=== PATIENT | female | born 1970 | race African-American/Black ===

== ENCOUNTER → 2018-08-27 | Outpatient (CLI) | payer BC ==
--- NOTE | 2018-08-27 16:47 | P.HPBAR ---
Bariatric H&P - History & Physicial H&P Date: 08/27/18 History & Physicial: Visit/CC: Patient initial contact: Initial weight: Initial weight in pounds: Height: Initial BMI: Last weight: Current weight: Current weight in pounds: Current BMI: [place] body weight (based on NIH guidelines): Excess body weight loss: The patient is a 48 year-old F who presents for Bariatric Assessment. Patient here today for new patient bariatric evaluation. Patient has been struggling with her weight for many years. She is interested in surgical weight loss. She is most interested in sleeve gastrectomy at this time. She is concerned about the long-term side effects of the gastric bypass. Patient suffers from hypertension, diabetes, hypercholesterolemia, GERD symptoms. Denies dysphagia or history of DVT. No history of tobacco use. No history of abdominal surgeries. 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 Paternal grandmother had DM Mother Additional Family Medical History / Comment(s): at age 57 from brain aneurysm Sister(s) Family Medical History: Diabetes Mellitus Additional Family Medical History / Comment(s): Sisters (x2) dx with DM Surgical - Exam Physical exam: General: Well-developed, well-nourished HEENT: Normocephalic, sclerae nonicteric Abdomen: Nontender, nondistended Extremities: No edema Neuro: Alert and oriented Bariatric Assessment & Plan (1) Morbid obesity Narrative/Plan: Patient with history of chronic obesity. Concerned about her underlying diabetes at this point. She is interested in sleeve gastrectomy. She actually is attending the bariatric seminar this evening. We'll tentatively proceed with sleeve gastrectomy. Will require preoperative upper endoscopy. Patient may require supervised weight loss preoperatively. Status: Acute Bariatric Checklist Checklist: Plan: Checklist: EGD: 1. Hiatal hernia: 2. H. Pylori: HgbA1c: Vitamin D: Smoking: Never smoker Primary care physician referral: Psychiatry clearance: Cardiology clearance: Sleep study: Diet journal: VTE risk score: VTE risk level: Rehab needs at discharge:
[2018-08-27 16:53] VITALS: BP 143/72; PULSE 101; RESP 16; TEMP 98.1; BMI 46.1
== END ==
LOC: BARWHC3 15:48
PROVIDERS: ATTEND Surgery
DX: E66.01 Morbid (severe) obesity due to excess calories (principal); Z68.42 Body mass index [BMI] 45.0-49.9, adult
CPT/HCPCS: 99201

== ENCOUNTER → 2018-09-11 | Outpatient (CLI) | payer BC ==
[2018-09-11 15:28] LABS: Anisocytosis Slight; HCT 37.7 % (34.0-46.0); HGB 10.9 gm/dL (11.4-16.0); Hypochromasia Marked; MCH 19.8 pg (25.0-35.0); MCHC 28.9 g/dL (31.0-37.0); MCV 68.5 fL (80.0-100.0); Mean Platelet Volume 6.1; Microcytosis Marked; Platelet Count 331 k/uL (150-450); RDW 16.3 % (11.5-15.5); WBC 6.7 k/uL (3.8-10.6)
[2018-09-11 18:20] LABS: Vitamin D 25 Hydroxy 43.8 ng/mL (30.0-100.0)
[2018-09-11 18:44] LABS: Albumin 4.4 g/dL (3.80-4.90); Albumin/Globulin Ratio 1.91 (1.20-2.10); Anion Gap 8.4 mmol/L (4.00-12.00); Calcium 9.7 mg/dL (8.7-10.3); Carbon Dioxide 27.6 mmol/L (21.6-31.8); Globulin 2.3 g/dL (1.6-3.3); Potassium 4.4 mmol/L (3.5-5.5); Total Bilirubin 0.6 mg/dL (0.2-1.2); Total Protein 6.7 g/dL (6.2-8.2)
[2018-09-12 00:17] LABS: Hemoglobin A1C 6.8 % (4.0-6.0)
== END ==
LOC: LABWHC1 13:27
PROVIDERS: ATTEND Surgery
DX: E66.01 Morbid (severe) obesity due to excess calories (principal); D50.8 Other iron deficiency anemias; E55.9 Vitamin D deficiency, unspecified; E11.9 Type 2 diabetes mellitus without complications
CPT/HCPCS: 36415; 80053; 82306; 82607; 83036; 83540; 84425; 85027; 93005

== ENCOUNTER → 2018-09-16 | Outpatient (CLI) | payer BC | END | disposition home or self-care (01) | LOC: LABWHC1 12:29 | PROVIDERS: ATTEND Surgery | DX: E66.01 Morbid (severe) obesity due to excess calories (principal); E55.9 Vitamin D deficiency, unspecified; E11.9 Type 2 diabetes mellitus without complications | CPT/HCPCS: 36415; 84425 ==

== ENCOUNTER 2018-12-04 13:32 | Emergency (ER) | payer BC ==
[2018-12-04] MEDS ORDERED: PROPARACAINE 0.5% OPHTH DROPS 15 ML BTL BOTH EYES STA (14:00)
[2018-12-04] MEDS ORDERED: TOBRAMYCIN 0.3% OPHTH DROPS 5 ML BTL RIGHT EYE STA (15:06)
--- NOTE | 2018-12-04 15:11 | ED ---
Eye Problem HPI - General Chief complaint: Eye Problems Stated complaint: eye sensitivity Time Seen by Provider: 12/04/18 13:59 Source: patient, RN/, RN notes reviewed Mode of arrival: ambulatory Limitations: no limitations - History of Present Illness Initial comments: Patient is a 48-year-old female presents emergency Department today with complaints of right eye pain. She reports she wears contacts. She states she's been having symptoms for the past day and half. Patient states that she did have pain with my will she was at work. She removed her contacts. She states that she's been having blurry vision from her right eye. She denies any significant drainage. Patient reports that since the pain started she has not re-warn her contacts. - Related Data Home Medications Medication Instructions Recorded Confirmed Acetaminophen-Codeine 300-30mg 1 tab PO Q6H PRN 08/21/18 12/04/18 [Tylenol w/codeine #3] Cetirizine HCl [Zyrtec] 10 mg PO DAILY 08/21/18 12/04/18 Cholecalciferol [Vitamin D3] 5,000 unit PO DAILY 08/21/18 12/04/18 Furosemide [Lasix] 20 mg PO DAILY 08/21/18 12/04/18 Pioglitazone [Actos] 15 mg PO DAILY 08/21/18 12/04/18 Potassium Chloride [Klor-Con 10] 10 meq PO DAILY 08/21/18 12/04/18 Simvastatin [Zocor] 20 mg PO HS 08/21/18 12/04/18 amLODIPine [Norvasc] 10 mg PO DAILY 08/21/18 12/04/18 glipiZIDE [Glucotrol] 10 mg PO AC-BID 08/21/18 12/04/18 metFORMIN HCL 500 mg PO DAILY 08/21/18 12/04/18 Cyanocobalamin (Vitamin B-12) 1,000 mcg PO DAILY 12/04/18 12/04/18 [Vitamin B-12] Previous Rx's Medication Instructions Recorded Tobramycin 0.3% Ophth Soln [Tobrex 1 drop RIGHT EYE Q4H #1 bottle 12/04/18 0.3% Ophth Soln] Allergies Allergy/AdvReac Type Severity Reaction Status Date / Time MARY Inhibitors Allergy Swelling Verified 12/04/18 14:27 adhesive tape Allergy Rash/Hives Verified 12/04/18 14:27 tramadol AdvReac Vomiting Verified 12/04/18 14:27 Review of Systems ROS Statement: Those systems with pertinent positive or pertinent negative responses have been documented in the HPI. ROS Other: All systems not noted in ROS Statement are negative. 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, bilateral arm surgery to remove boils, D&C, Past Anesthesia/Blood Transfusion Reactions: No Reported Reaction Additional Past Anesthesia/Blood Transfusion Reaction / Comment(s): No blood transfusion to date Past Psychological History: No Psychological Hx Reported Smoking Status: Never smoker Past Alcohol Use History: None Reported Past Drug Use History: None Reported - Past Family History Mother Additional Family Medical History / Comment(s): at age 57 from brain aneurysm Father Family Medical History: Cancer Additional Family Medical History / Comment(s): at age 70 from prostate cancer Sister(s) Family Medical History: Diabetes Mellitus Additional Family Medical History / Comment(s): Sisters (x2) dx with DM General Exam - General Exam Comments Initial Comments: 40-year-old female. Alert and oriented. No distress. Limitations: no limitations General appearance: alert, in no apparent distress Head exam: Present: atraumatic, normocephalic, normal inspection Eye exam: Present: PERRL, EOMI, other (Patient has a large corneal abrasion over the center of the right eye with conjunctival injection noted. Cranial abrasion measures 8 mm x 6 mm. Over the area where contact us. No drainage from the eye noted.). Absent: normal appearance, scleral icterus, conjunctival injection, periorbital swelling ENT exam: Present: normal exam, mucous membranes moist Neck exam: Present: normal inspection. Absent: tenderness, meningismus, lymphadenopathy Respiratory exam: Present: normal lung sounds bilaterally. Absent: respiratory distress, wheezes, rales, rhonchi, stridor Cardiovascular Exam: Present: regular rate, normal rhythm, normal heart sounds. Absent: systolic murmur, diastolic murmur, rubs, gallop, clicks Course Vital Signs 12/04/18 12/04/18 13:39 15:29 Temperature 98.6 F 97.8 F Pulse Rate 97 90 Respiratory 20 18 Rate Blood Pressure 140/86 126/78 O2 Sat by Pulse 100 98 Oximetry Medical Decision Making - Medical Decision Making 30-year-old female presents range from today with right eye pain after. Cotacts have been out the past 2 days. She reports does not wear contacts is concerned. On exam she has a significant corneal abrasion over the right eye. Some conjunctival injection is noted. Visual acuity is intact. Able to see lights and movements. Patient does notice prescribed tobramycin. He gave the Patient referral for ophthalmology and discussed that she had prompt follow-up. Discussed if there is any worsening signs or symptoms she should return for reevaluation. Disposition Clinical Impression: Corneal abrasion due to contact lens Disposition: HOME SELF-CARE Condition: Good Instructions (If sedation given, give patient instructions): Corneal Abrasion (ED) Additional Instructions: Patient advised to follow-up with ophthalmology tomorrow. Apply the eyedrops every 4 hours. Patient should return to the emergency department if any alarming signs or symptoms occur. Prescriptions: Tobramycin 0.3% Ophth Soln [Tobrex 0.3% Ophth Soln] 1 drop RIGHT EYE Q4H #1 bottle Is patient prescribed a controlled substance at d/c from ED?: No Referrals: Kathy Carmona MD [Primary Care Provider] - 1-2 days Azalia Leon MD [STAFF PHYSICIAN] - 1-2 days Time of Disposition: 15:08
[2018-12-04 15:31] VITALS: BP 126/78; PULSE 90; RESP 18; TEMP 97.8
== END 2018-12-04 15:31 | disposition home or self-care (01) ==
LOC: EC 13:32
DX: H18.821 Corneal disorder due to contact lens, right eye (principal); E11.9 Type 2 diabetes mellitus without complications; E78.5 Hyperlipidemia, unspecified; I10 Essential (primary) hypertension; Z98.890 Other specified postprocedural states; Z79.84 Long term (current) use of oral hypoglycemic drugs; Z79.899 Other long term (current) drug therapy; Z88.8 Allergy status to other drugs, medicaments and biological substances; Z91.048 Other nonmedicinal substance allergy status; Z88.5 Allergy status to narcotic agent
CPT/HCPCS: 99283

== ENCOUNTER 2019-01-03 11:18 | Emergency (ER) | payer BC, OTHER ==
[2019-01-03 11:22] VITALS: TEMP 98.3
[2019-01-03] MEDS ORDERED: ACET/COD 300 MG/30 MG STARTER PACK 6 TAB BTL PO STA (11:39)
[2019-01-03] MEDS ORDERED: Acetaminophen-Codeine 300-30mg TAB PO STA (11:39)
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
[2019-01-03 13:07] VITALS: BP 136/89; PULSE 75; RESP 18
== END 2019-01-03 13:00 | disposition home or self-care (01) ==
LOC: EC 11:18
DX: T23.272A Burn of second degree of left wrist, initial encounter (principal); T31.0 Burns involving less than 10% of body surface; E11.9 Type 2 diabetes mellitus without complications; E78.5 Hyperlipidemia, unspecified; I10 Essential (primary) hypertension; Z79.84 Long term (current) use of oral hypoglycemic drugs; Z79.899 Other long term (current) drug therapy; Z88.8 Allergy status to other drugs, medicaments and biological substances; Z91.048 Other nonmedicinal substance allergy status; Z88.5 Allergy status to narcotic agent; X19.XXXA Contact with other heat and hot substances, initial encounter; Y92.69 Other specified industrial and construction area as the place of occurrence of the external cause; Y99.0 Civilian activity done for income or pay
CPT/HCPCS: 99283

== ENCOUNTER → 2019-01-18 | Outpatient (CLI) | payer BC ==
--- NOTE | 2019-01-18 14:09 | XR ---
EXAMINATION TYPE: XR knee complete LT DATE OF EXAM: 01/18/2019 CLINICAL HISTORY: Proximal pain. TECHNIQUE: Three views of the left knee are obtained. COMPARISON: None. FINDINGS: There is no acute fracture/dislocation evident in left knee. Asymmetric mild to moderate n arrowing medial tibiofemoral compartment is present. No significant spurring is seen. The overlying s oft tissue appears unremarkable. IMPRESSION: As above.
== END | disposition home or self-care (01) ==
LOC: RADXRMAIN 11:34
PROVIDERS: ATTEND Internal Medicine
DX: M25.862 Other specified joint disorders, left knee (principal); M25.562 Pain in left knee

== ENCOUNTER → 2019-03-31 | Outpatient (CLI) | payer BC ==
[2019-03-31 09:37] VITALS: BMI 46.4
== END ==
LOC: BARWHC3 09:02
PROVIDERS: ATTEND Surgery
DX: E66.01 Morbid (severe) obesity due to excess calories (principal); Z68.42 Body mass index [BMI] 45.0-49.9, adult
CPT/HCPCS: 97804

== ENCOUNTER 2019-04-02 07:17 | Day surgery (SDC) | payer BC ==
[2019-03-28 12:30] VITALS: BMI 45.1
[~2019-04-02 07:17] MED LIST: LACTATED RINGERS 1,000 ML IV SCH
[2019-04-02 07:37] VITALS: RESP 18
[2019-04-02 07:38] VITALS: TEMP 97.1
[2019-04-02 07:43] LABS: Glucose,Whole Blood 125 mg/dL (75-99)
[2019-04-02] MEDS ORDERED: LACTATED RINGERS 1,000 ML IV ONE ×3 (07:48)
[2019-04-02] MEDS ORDERED: MIDAZOLAM 2 MG/2 ML VIAL ONE (08:30)
[2019-04-02] MEDS ORDERED: PROPOFOL 10 MG/ML 20 ML VIAL IV ONE (08:30)
--- NOTE | 2019-04-02 08:30 | P.GSHP ---
History of Present Illness H&P Date: 04/02/19 Chief Complaint: GERD 48-year-old female known to our service. We'll see in the bariatric center earlier this year. Patient interested in sleeve gastrectomy. Complains of mild reflux. Recently completed her supervised weight loss programs. 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 Occ boils in [place] axilla's, last 1 wk ago - on po Bactrim. 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, bilateral arm surgery to remove boils, D&C Past Anesthesia/Blood Transfusion Reactions: No Reported Reaction, Motion Sickness Additional Past Anesthesia/Blood Transfusion Reaction / Comment(s): No blood transfusion to date Smoking Status: Never smoker - Past Family History Mother Additional Family Medical History / Comment(s): at age 57 from brain aneurysm Father Family Medical History: Cancer Additional Family Medical History / Comment(s): at age 70 from prostate cancer Sister(s) Family Medical History: Diabetes Mellitus Additional Family Medical History / Comment(s): Sisters (x2) dx with DM Medications and Allergies Home Medications Medication Instructions Recorded Confirmed Type Cetirizine HCl [Zyrtec] 10 mg PO DAILY 08/21/18 03/28/19 History Cholecalciferol [Vitamin D3] 5,000 unit PO DAILY 08/21/18 03/28/19 History Furosemide [Lasix] 20 mg PO DAILY 08/21/18 03/28/19 History Pioglitazone [Actos] 15 mg PO DAILY 08/21/18 03/28/19 History Potassium Chloride [Klor-Con 10] 10 meq PO DAILY 08/21/18 03/28/19 History Simvastatin [Zocor] 20 mg PO HS 08/21/18 03/28/19 History amLODIPine [Norvasc] 10 mg PO DAILY 08/21/18 03/28/19 History glipiZIDE [Glucotrol] 10 mg PO AC-BID 08/21/18 03/28/19 History metFORMIN HCL 500 mg PO DAILY 08/21/18 03/28/19 History Cyanocobalamin (Vitamin B-12) 1,000 mcg PO DAILY 12/04/18 03/28/19 History [Vitamin B-12] Acetaminophen-Codeine 300-30mg 1 tab PO Q4-6H PRN 03/28/19 03/28/19 History [Tylenol w/codeine #3] Diclofenac Sodium [Voltaren] 75 mg PO BID 03/28/19 03/28/19 History Ibuprofen [Motrin] 600 mg PO Q8HR PRN 03/28/19 03/28/19 History Levonorgestrel [Mirena] 1 each IY DIRECTED 03/28/19 03/28/19 History Vitamin B1 (Unknown Dose) 1 tab PO DAILY 03/28/19 History Allergies Allergy/AdvReac Type Severity Reaction Status Date / Time MARY Inhibitors Allergy Swelling Verified 03/28/19 12:02 adhesive tape Allergy Rash/Hives Verified 03/28/19 12:02 tramadol AdvReac Vomiting Verified 03/28/19 12:02 Surgical - Exam Vital Signs Pulse Resp BP Pulse Ox 68 18 114/68 97 04/02/19 07:35 04/02/19 07:35 04/02/19 07:35 04/02/19 07:35 Physical exam: General: Well-developed, well-nourished HEENT: Normocephalic, sclerae nonicteric Abdomen: Nontender, nondistended Extremities: No edema Neuro: Alert and oriented Results - Labs Abnormal Lab Results - Last 24 Hours (Table) 04/02/19 Range/Units 07:42 POC Glucose (mg/dL) 125 H (75-99) mg/dL Assessment and Plan (1) GERD (gastroesophageal reflux disease) Narrative/Plan: Will proceed with upper endoscopy at this time. Current Visit: Yes Status: Acute Code(s): K21.9 - GASTRO-ESOPHAGEAL REFLUX DISEASE WITHOUT ESOPHAGITIS SNOMED Code(s): 068898271
--- NOTE | 2019-04-02 08:42 | P.PCN ---
Date of Procedure: 04/02/19 Procedure(s) Performed: Preoperative Dx: GERD, presurgical Postoperative Dx: Gastritis with small gastric ulcer Procedure: EGD with Bx Anesthesia: Sedation Endoscopist: Dr. Patton Specimens: Surgical Endoscopic Procedure: The patient was on the endoscopy table in the left decubitus position. The Olympus gastroscope was inserted into the oropharynx and passed under direct visualization to the region of the third portion of the duodenum. From that point the scope was slowly withdrawn inspecting all fady faces carefully. There were no neoplastic inflammatory or polypoid lesions throughout the duodenum. The pylorus was widely patent. The stomach was carefully inspected. There was gastritis present with a very small ulcer seen along the posterior antrum. A biopsy of this area took place. Retroflexion revealed a normal hiatus. The esophagus was then carefully examined. There were no neoplastic inflammatory or polypoid lesions throughout the visualized esophagus. The patient was then taken to the recovery room in stable condition per anesthesia guidelines. Recommendations: Begin antiacid therapy. Await biopsy results. Follow-up bariatric clinic.
[2019-04-02 09:02] VITALS: BP 109/74; PULSE 75
== END 2019-04-02 09:24 | disposition home or self-care (01) ==
LOC: ORWHC2ENDO 07:17
PROVIDERS: ATTEND Surgery
DX: K29.50 Unspecified chronic gastritis without bleeding (principal); K25.9 Gastric ulcer, unspecified as acute or chronic, without hemorrhage or perforation; K21.9 Gastro-esophageal reflux disease without esophagitis; E11.9 Type 2 diabetes mellitus without complications; E78.5 Hyperlipidemia, unspecified; I10 Essential (primary) hypertension; Z79.84 Long term (current) use of oral hypoglycemic drugs; Z83.3 Family history of diabetes mellitus; Z88.8 Allergy status to other drugs, medicaments and biological substances; B96.81 Helicobacter pylori [H. pylori] as the cause of diseases classified elsewhere; Z80.42 Family history of malignant neoplasm of prostate; Z79.899 Other long term (current) drug therapy
CPT/HCPCS: 81025; 43239; J2250; J2704; 88305; 88342

== ENCOUNTER → 2019-05-08 | Outpatient (CLI) | payer BC ==
[2019-05-08 13:56] VITALS: BP 120/80; PULSE 89; RESP 16; TEMP 97.9; BMI 45.8
--- NOTE | 2019-05-08 15:46 | P.BASOAP ---
Subjective Progress Note Date: 05/08/19 Principal diagnosis: Morbid obesity Patient returns for reevaluation. Underwent recent upper endoscopy. EGD showed small ulcer. Biopsy confirmed the presence of H. pylori. Patient completed her antibiotic regimen. Remains on antiacids. Recently started another antibiotic for a urinary tract infection. Remains on vitamin B1 and vitamin D supplementation. Here today for urea breath test. Denies abdominal pain. No melena. Objective - Vital Signs Vital signs: Vital Signs Temp 97.9 F 05/08/19 13:52 Pulse 89 05/08/19 13:52 Resp 16 05/08/19 13:52 BP 120/80 05/08/19 13:52 Pulse Ox Intake & Output 05/07/19 05/08/19 05/08/19 18:59 06:59 18:59 Weight 128.82 kg - Exam Abdomen: Soft, nontender, nondistended Assessment/Plan (1) Morbid obesity Narrative/Plan: Will check urea breath test at this time. Once that test is back as long as H. pylori is negative Will schedule for upcoming sleeve gastrectomy. The sleeve surgical consent form was reviewed in detail with the patient's. All associated risks were reviewed in detail. She understands and wishes to proceed. Plan: Date: 05/08/19 Initial Weight: 129.727 kg Initial BMI: 46.1 Current Weight: 128.82 kg Current BMI: 45.8 Type of Surgery: Total Volume in Band: Previous Volume: Volume Removed: Volume Added: Band Size:
== END | disposition home or self-care (01) ==
LOC: BARWHC3 13:42
PROVIDERS: ATTEND Surgery
DX: E66.01 Morbid (severe) obesity due to excess calories (principal); Z68.42 Body mass index [BMI] 45.0-49.9, adult; N39.0 Urinary tract infection, site not specified; Z79.899 Other long term (current) drug therapy
CPT/HCPCS: 83013; 99211

== ENCOUNTER → 2019-05-20 | Outpatient (CLI) | payer BC ==
[~2019-05-20] MED LIST changes: -LACTATED RINGERS 1,000 ML IV SCH; +REGADENOSON 0.4 MG/5 ML SYRINGE IV ONE
--- NOTE | 2019-05-20 11:33 | NM ---
EXAMINATION TYPE: NM stress lexiscan cardiolite DATE OF EXAM: 05/20/2019 COMPARISON: NONE HISTORY: Abnormal EKG TECHNIQUE: After the intravenous administration of 10.4 mCi Tc 99m Sestamibi - Cardiolite resting SP ECT images acquired 45 minutes post injection. The patient received 0.4mg Lexiscan, 26.8 mCi Tc 99m Sestamibi - Stress images obtained [address] injection FINDINGS: Exam limited due to artifact Review of stress and rest SPECT images demonstrates Limited exam with suspicion for a stress-induced area of reversibility involving the apex myocardium.. Gated analysis shows normal wall motion with a n estimated left ventricular ejection fraction of 58 %. Report telephoned to the patient's referring clinician. IMPRESSION: 1. Limited exam demonstrates findings suspicious for an area of stress-induced reversible ischemia in volving the apex of the myocardium.
--- NOTE | 2019-05-21 16:08 | EST ---
EXERCISE STRESS DATE OF TEST: 05/20/2019 AGE: @48 SEX: Female HT: 5'6" WT: 286 lbs PROTOCOL: Lexiscan Cardiolite STAGE: DURATION OF EXERCISE: HEART RATE REST: 68 BLOOD PRESSURE REST: 120/89 MAXIMUM HEART RATE ACHIEVED: 68 MAXIMUM BLOOD PRESSURE: 126/75 85% MPHR: 100% MPHR: METS: INDICATIONS: Abnormal EKG CLINICAL INFORMATION: A Lexiscan nuclear study was performed. Peak heart rate of 85 was achieved. Maximum blood pressure of 124/75 mmHg was noted. Resting EKG shows normal sinus rhythm with normal ID interval and QRS duration and normal ST-T waves. No ST-segment depression suggestive of ischemia is noted. The results of the nuclear study will follow. MMODL / IJN: [id number] /
== END | disposition home or self-care (01) ==
LOC: RADNMMAIN 08:23
PROVIDERS: ATTEND Internal Medicine
DX: R94.31 Abnormal electrocardiogram [ECG] [EKG] (principal)
CPT/HCPCS: 93017; 78452; A9500; J2785

== ENCOUNTER → 2019-06-12 | Outpatient (CLI) | payer BC ==
[2019-06-12 17:37] LABS: HCT 32.8 % (34.0-46.0); HGB 9.9 gm/dL (11.4-16.0); Hypochromasia Marked; MCHC 30.3 g/dL (31.0-37.0); MCV 69.3 fL (80.0-100.0); Microcytosis Marked; Platelet Count 299 k/uL (150-450); RBC 4.73 m/uL (3.80-5.40); WBC 9.3 k/uL (3.8-10.6)
[2019-06-12 17:44] LABS: Chloride 105 mmol/L (98-107)
[2019-06-12 17:47] LABS: African American GFR (CKD) >90 (>60 ml/min/1.73 sqM); Anion Gap 9 mmol/L; Blood Urea Nitrogen 14 mg/dL (7-17); Carbon Dioxide 26 mmol/L (22-30); Potassium 4.1 mmol/L (3.5-5.1); Sodium 140 mmol/L (137-145)
== END | disposition home or self-care (01) ==
LOC: LABPAT 17:15
PROVIDERS: ATTEND Internal Medicine Cardiovascular Disease
DX: Z01.812 Encounter for preprocedural laboratory examination (principal); R93.1 Abnormal findings on diagnostic imaging of heart and coronary circulation
CPT/HCPCS: 36415; 80051; 82565; 84520; 85027

== ENCOUNTER → 2019-06-25 | Day surgery (SDC) | payer BC ==
[2019-06-20 10:03] VITALS: BMI 45.6
[~2019-06-25] MED LIST changes: +ALPRAZolam 0.25 MG TAB PO PRN; +ALPRAZolam 0.5 MG TAB PO PRN; +ASPIRIN 325 MG TAB PO STA; +ATORVASTATIN 80 MG TAB PO STA; +IOPAMIDOL-370 125ML BTL INJ ONE; +LIDOCAINE 1% INJ 10MG/ML (20 ML MDV) ONE; +LIDOCAINE 1% INJ 10MG/ML (20 ML MDV) SQ ONE; +MIDAZOLAM 2 MG/2 ML VIAL IVP ONE; +NITROGLYCERIN SL TABS 0.4 MG TAB SUBLINGUAL PRN; -REGADENOSON 0.4 MG/5 ML SYRINGE IV ONE; +SODIUM CHLORIDE 0.9% 1,000 ML in EMPTY BAG 1 BAG IV ONE; +fentaNYL (PF) 50 MCG/ML 2 ML AMP IVP ONE; +fentaNYL (PF) 50 MCG/ML 2 ML AMP ONE
[2019-06-25 08:17] VITALS: TEMP 97.7
[2019-06-25 08:23] LABS: Glucose,Whole Blood 110 mg/dL (75-99)
--- NOTE | 2019-06-25 09:53 | CC ---
CARDIAC CATHETERIZATION REPORT INDICATION: Chest pain with abnormal stress test. PROCEDURE NOTE: After obtaining informed consent, left heart catheterization and coronary angiogram are performed via the right femoral artery using standard Heath catheters. The patient tolerated the procedure well without any obvious immediate complications. A femoral angiogram was performed and Angio-Seal was deployed for hemostasis. Patient received moderate conscious sedation. Total sedation time was 20 minutes. FINDINGS: 1. HEMODYNAMICS: Left ventricular end-diastolic pressure is 12-14 mm. There is no significant gradient across the aortic valve. 2. LEFT VENTRICULOGRAM: Left ventriculogram is not performed. 3. ANGIOGRAPHIC DATA: Left Main Coronary Artery: Left main coronary artery is a normal-sized vessel and is free of stenosis. Divides into left anterior descending coronary artery and circumflex coronary artery. LAD and its branches, circumflex coronary artery and its branches are free of significant stenosis. CONCLUSIONS: 1. Normal coronary arteries. 2. Normal left ventricular end-diastolic pressure. PLAN: I reviewed angiographic data with the patient and told her that her stress test is a false positive stress test and management is going to be in the form of risk factor modification. MMODL / IJN: [id number] /
--- NOTE | 2019-06-25 09:59 | LTR ---
June 25, 2019 Re: Domenica Torres Dear Dr. Carmona: I performed cardiac catheterization on Domenica Torres. A detailed catheterization note is enclosed for your records. In brief, the cardiac catheterization revealed normal coronary arteries. I believe stress test is a false positive stress test and her management is going to be in the form of risk factor modification. Thank you for giving me the privilege to participate in the care of this pleasant lady. Sincerely, MD NINOSKA Dyer / YOBANY: [id number] /
[2019-06-25 12:13] VITALS: BP 136/84; PULSE 70; RESP 18
== END | disposition home or self-care (01) ==
LOC: CATHCVL 07:55
PROVIDERS: ATTEND Internal Medicine Cardiovascular Disease
DX: R94.39 Abnormal result of other cardiovascular function study (principal); R07.9 Chest pain, unspecified; D50.0 Iron deficiency anemia secondary to blood loss (chronic); I10 Essential (primary) hypertension; E11.9 Type 2 diabetes mellitus without complications; E78.2 Mixed hyperlipidemia; Z79.84 Long term (current) use of oral hypoglycemic drugs; Z79.899 Other long term (current) drug therapy; Z82.49 Family history of ischemic heart disease and other diseases of the circulatory system
CPT/HCPCS: 93458; 81025; C1769 ×2; C1760; C1894; J2250; J2001; J3010; Q9967

== ENCOUNTER → 2019-07-22 | Outpatient (CLI) | payer BC ==
[2019-07-22 14:36] VITALS: BP 133/84; PULSE 90; TEMP 97.7; BMI 46.7
--- NOTE | 2019-07-22 15:14 | P.BASOAP ---
Subjective Progress Note Date: 07/22/19 Principal diagnosis: Morbid obesity Patient returns today to discuss upcoming sleeve gastrectomy. Underwent EGD in March which showed a small ulcer. She was H. pylori positive. She subsequently had a urea breath test that was normal. Patient had an abnormal stress test and then had a cardiac catheterization that was normal. She has been scheduled for wisdom tooth removal next week. She is on antibiotics for a small boil right axilla. Sleeve gastrectomy scheduled . Objective - Vital Signs Vital signs: Vital Signs Temp 97.7 F 07/22/19 14:33 Pulse 90 07/22/19 14:33 Resp BP 133/84 07/22/19 14:33 Pulse Ox Intake & Output 07/21/19 07/22/19 07/22/19 18:59 06:59 18:59 Weight 131.542 kg - Exam Abdomen: Soft, nontender, nondistended Assessment/Plan (1) Morbid obesity Narrative/Plan: Finish antibiotics for small wound infection. Maintain plans for upcoming sleeve gastrectomy 08/04. Surgical consent form was reviewed with the patient last visit. Once again reviewed those associated risks. Patient remains interested and wishes to proceed. Plan: Date: 07/22/19 Initial Weight: 129.727 kg Initial BMI: 46.1 Current Weight: 131.542 kg Current BMI: 46.7 Type of Surgery: Total Volume in Band: Previous Volume: Volume Removed: Volume Added: Band Size:
== END | disposition home or self-care (01) ==
LOC: BARWHC3 13:37
PROVIDERS: ATTEND Surgery
DX: E66.01 Morbid (severe) obesity due to excess calories (principal); Z68.42 Body mass index [BMI] 45.0-49.9, adult
CPT/HCPCS: 99211

== ENCOUNTER → 2019-08-01 | Outpatient (CLI) | payer BC ==
[2019-08-01 13:53] LABS: ALT 42 U/L (4-34); AST 35 U/L (14-36); African American GFR (CKD) >90 (>60 ml/min/1.73 sqM); Alkaline Phosphatase 97 U/L (38-126); Anion Gap 12 mmol/L; Blood Urea Nitrogen 15 mg/dL (7-17); Calcium 10.4 mg/dL (8.4-10.2); Carbon Dioxide 26 mmol/L (22-30); Chloride 103 mmol/L (98-107); Glucose 93 mg/dL (74-99); Non-African American GFR(CKD) 79 (>60 ml/min/1.73 sqM); Potassium 4.3 mmol/L (3.5-5.1); Sodium 141 mmol/L (137-145); Total Bilirubin 0.8 mg/dL (0.2-1.3)
[2019-08-01 14:15] LABS: HCT 36.3 % (34.0-46.0); HGB 10.9 gm/dL (11.4-16.0); Hypochromasia Marked; MCH 20.6 pg (25.0-35.0); MCHC 30.1 g/dL (31.0-37.0); MCV 68.5 fL (80.0-100.0); Mean Platelet Volume 7.9; Microcytosis Marked; Platelet Count 312 k/uL (150-450); RDW 15.5 % (11.5-15.5)
[2019-08-01 15:19] LABS: Basophils # (M) 0.06 k/uL (0-0.2); Lymphocytes # (M) 2.58 k/uL (1.0-4.8); Monocytes # (M) 0.48 k/uL (0-1.0); Neutrophils # (M) 2.88 k/uL (1.3-7.7); Neutrophils % (M) 48 %; Nucleated Red Blood Cells 0 /100 WBC (0-0); Total Cells Counted 100
[2019-08-01 15:20] LABS: Large Platelets Present; Target Cells Present
== END | disposition home or self-care (01) ==
LOC: LABPAT 12:32
PROVIDERS: ATTEND Surgery
DX: Z01.818 Encounter for other preprocedural examination (principal)
CPT/HCPCS: 36415; 80053; 85025; 93005

== ENCOUNTER 2019-08-04 09:26 | Inpatient (IN) | payer BC ==
[~2019-08-04 09:26] MED LIST changes: -ALPRAZolam 0.25 MG TAB PO PRN; -ALPRAZolam 0.5 MG TAB PO PRN; -ASPIRIN 325 MG TAB PO STA; -ATORVASTATIN 80 MG TAB PO STA; +DEXAMETHASONE SOD PHOSPHATE 10 MG/ML 1 ML VIAL IV ONE; +ENOXAPARIN 40 MG/0.4 ML SYRINGE SQ ONE; -IOPAMIDOL-370 125ML BTL INJ ONE; +LIDOCAINE 1% 20 ML VIAL (10MG/ML) FOR IV START INTRADERMA PRN; -LIDOCAINE 1% INJ 10MG/ML (20 ML MDV) ONE; -LIDOCAINE 1% INJ 10MG/ML (20 ML MDV) SQ ONE; -MIDAZOLAM 2 MG/2 ML VIAL IVP ONE; -NITROGLYCERIN SL TABS 0.4 MG TAB SUBLINGUAL PRN; +ONDANSETRON 4 MG/2 ML VIAL IVP ONE; +SCOPOLAMINE 1.5MG/72HR PATCH TRANSDERM ONE; -SODIUM CHLORIDE 0.9% 1,000 ML in EMPTY BAG 1 BAG IV ONE; +ceFAZolin 3 GM in SODIUM CHLORIDE 0.9% 100 ML IVPB ONE; -fentaNYL (PF) 50 MCG/ML 2 ML AMP IVP ONE; -fentaNYL (PF) 50 MCG/ML 2 ML AMP ONE
--- NOTE | 2019-08-04 11:21 | P.GSHP ---
History of Present Illness H&P Date: 08/04/19 Chief Complaint: morbid obesity patient here today for elective sleeve gastrectomy. Patient first seen in the bariatric center in August. Patient suffers from hypertension, diabetes, hypercholesterolemia, GERD. Recent EGD showed a small ulcer. She was H. pylori positive. She was treated for H. pylori. Follow-up urea breath test normal. Patient also had recent cardiac catheterization that was normal. Patient being treated for right axillary skin and soft tissue infection with antibiotics. Those symptoms have improved. Denies DVT or dysphagia. BMI 44. Past Medical History Past Medical History: Diabetes Mellitus, GERD/Reflux, Hyperlipidemia, Hypertension, Skin Disorder Additional Past Medical History / Comment(s): "I have low Iron." Seasonal allergies, poor venous circulation, has dependent edema (uses a pneumatic compression device machine at home). Occasional GERD, occasional boils in bilateral axillas. 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 Past Anesthesia/Blood Transfusion Reactions: No Reported Reaction, Motion Sickness Additional Past Anesthesia/Blood Transfusion Reaction / Comment(s): No blood transfusion to date. Smoking Status: Never smoker - Past Family History Mother Additional Family Medical History / Comment(s): at age 57 from brain aneurysm. Father Family Medical History: Cancer Additional Family Medical History / Comment(s): at age 70 from prostate cancer Sister(s) Family Medical History: Diabetes Mellitus Additional Family Medical History / Comment(s): Sisters (X2) with DM. Medications and Allergies Home Medications Medication Instructions Recorded Confirmed Type Cetirizine HCl [Zyrtec] 10 mg PO DAILY 08/21/18 07/31/19 History Cholecalciferol [Vitamin D3] 5,000 unit PO DAILY 08/21/18 07/31/19 History Furosemide [Lasix] 20 mg PO DAILY 08/21/18 07/31/19 History Pioglitazone [Actos] 15 mg PO DAILY 08/21/18 07/31/19 History Potassium Chloride [Klor-Con 10] 10 meq PO DAILY 08/21/18 07/31/19 History Simvastatin [Zocor] 20 mg PO HS 08/21/18 07/31/19 History amLODIPine [Norvasc] 10 mg PO DAILY 08/21/18 07/31/19 History metFORMIN HCL 500 mg PO DAILY 08/21/18 07/31/19 History Acetaminophen-Codeine 300-30mg 1 tab PO Q4-6H PRN 03/28/19 07/31/19 History [Tylenol w/codeine #3] Diclofenac Sodium [Voltaren] 75 mg PO BID PRN 03/28/19 07/31/19 History Ibuprofen [Motrin] 600 mg PO Q8HR PRN 03/28/19 07/31/19 History Levonorgestrel [Mirena] 1 each IY DIRECTED 03/28/19 07/31/19 History Vitamin B1 (Unknown Dose) 1 tab PO DAILY 03/28/19 07/31/19 History Omeprazole [PriLOSEC] 20 mg PO AC-BRKFST #90 cap 04/02/19 07/31/19 Rx Allergies Allergy/AdvReac Type Severity Reaction Status Date / Time MARY Inhibitors Allergy Swelling Verified 07/31/19 17:58 adhesive tape Allergy Rash/Hives Verified 07/31/19 17:58 tramadol AdvReac Vomiting Verified 07/31/19 17:58 Surgical - Exam Physical exam: General: Well-developed, well-nourished HEENT: Normocephalic, sclerae nonicteric Abdomen: Nontender, nondistended Extremities: No edema Neuro: Alert and oriented Assessment and Plan (1) Morbid obesity Narrative/Plan: Will proceed with elective laparoscopic sleeve gastrectomy at this time. The risks of bleeding, infection, stenosis, stricture, leak, abscess, fistula formation, peritonitis, poor weight loss, reflux, vomiting, conversion to an open procedure, aborting sleeve gastrectomy, VT, PE, DVT, and were discussed. The patient understands and wishes to proceed. Current Visit: No Status: Acute Code(s): E66.01 - MORBID (SEVERE) OBESITY DUE TO EXCESS CALORIES SNOMED Code(s): 724974173
[2019-08-04] MEDS: LACTATED RINGERS 1,000 ML IV SCH (11:50)
[2019-08-04] MEDS ORDERED: MIDAZOLAM 2 MG/2 ML VIAL IV ONE (12:05)
[2019-08-04 12:06] LABS: Glucose,Whole Blood 104 mg/dL (75-99)
[2019-08-04] MEDS ORDERED: MIDAZOLAM 2 MG/2 ML VIAL ONE (13:04)
[2019-08-04] MEDS ORDERED: ROCURONIUM BROMIDE 10 MG/ML 10 ML VIAL IV ONE (13:04)
[2019-08-04] MEDS ORDERED: GLYCOPYRROLATE 0.2 MG/ML 2 ML VIAL ONE (13:04)
[2019-08-04] MEDS ORDERED: LIDOCAINE 1% INJ 10MG/ML (20 ML MDV) ONE (13:04)
[2019-08-04] MEDS ORDERED: KETAMINE 10 MG/ML 20 ML VIAL ONE (13:04)
[2019-08-04] MEDS ORDERED: HYDROmorphone (PF) 1 MG/ML ONE (13:04)
[2019-08-04] MEDS ORDERED: fentaNYL (PF) 50 MCG/ML 2 ML AMP ONE (13:04)
[2019-08-04] MEDS ORDERED: PROPOFOL 10 MG/ML 20 ML VIAL IV ONE (13:04)
[2019-08-04] MEDS ORDERED: NEOSTIGMINE 1 MG/ML 10 ML VIAL ONE (13:04)
[2019-08-04] MEDS ORDERED: ePHEDrine SULFATE/0.9% NACL/PF 50 MG/5 ML SYRINGE IV ONE (13:04)
[2019-08-04] MEDS ORDERED: BUPIVACAIN-EPI 0.25%-1:200,000 30 ML VIAL SQ ONE ×2 (13:28)
[2019-08-04] MEDS ORDERED: LACTATED RINGERS 1,000 ML IV ONE (13:51)
[2019-08-04] MEDS ORDERED: NALOXONE 0.4 MG/ML 1 ML VIAL IV PRN (15:02)
[2019-08-04] MEDS ORDERED: diphenhydrAMINE 50 MG/ML 1 ML VIAL IVP PRN (15:02)
--- NOTE | 2019-08-04 15:06 | P.OP ---
Date of Procedure: 08/04/19 Procedure(s) Performed: PREOPERATIVE DIAGNOSIS: Morbid obesity, hypertension, diabetes, hypercholesterolemia, GERD POSTOPERATIVE DIAGNOSIS: Same PROCEDURE: Laparoscopic sleeve gastrectomy SURGEON: Pooja EBL: Minimal ANESTHESIA: General COMPLICATIONS: None OPERATIVE PROCEDURE: Patient was placed in the operating table in the supine position. She was placed under general anesthesia at that time. The abdomen was prepped and draped in sterile fashion after the patient was placed in lithotomy. A 5 mm optical trocar was used to enter the abdominal cavity in the left upper quadrant. Insufflation took place to 15 millimeters mercury. An additional right subxiphoid 5 mm trocar was then placed under direct visualization and then removed. 2 additional 5 mm trochars were placed in the right upper quadrant and left upper quadrant under direct visualization and a 15 mm trocar in the supraumbilical location. The liver was retracted using a medium Kristina liver retractor through the right subxiphoid trocar site. The hiatus was inspected. The patient had no visible hiatal hernia At that point I moved to the mid aspect of the greater curvature the stomach. The short gastric vasculature was divided using a LigaSure device proximally. I then switched and divided the short gastrics distally to a 3-4 cm from the pylorus. The dissection took place up to the left diaphragmatic crura at that point. The posterior short gastrics were likewise divided using the LigaSure device. Once the stomach was fully mobilized the blunt tipped 40-Swedish bougie dilator was advanced into the stomach and advanced all the way to the prepyloric location. A black echelon 60 stapler was utilized and fired tangentially across the antrum taking care to avoid narrowing at the incisura angularis. Subsequent firings of the stapler took place. A second firing of the black load with seam guard took place next. Additional loads of green echelon 60 staplers with seam guard took place proximally staying on the outer edge of our dilator. The oral gastric tube was reinserted. The stomach was insufflated with approximately 100 mL of methylene blue. No evidence of leak or obstruction was seen. The distal aspect of the sleeve was then reapproximated to the gastrosplenic and gastrocolic ligament using a short running 2-0 strata fix suture. This was done to prevent kinking or twisting of the sleeve. The stomach remnant was removed from the 15 mm trocar site without difficulty. The fascia at the 15 more site was closed using interrupted 0 Vicryl sutures with the laparoscopic suture passer and Dontrell Francisco technique. The insufflation was evacuated. The skin at all 5 incisions were closed using 4-0 Monocryl sutures. Skin glue was then applied. DISPOSITION: Stable to recovery room
[2019-08-04 15:20] LABS: Glucose,Whole Blood 196 mg/dL (75-99)
[2019-08-04] MEDS: HYDROmorphone 0.5 MG/0.5 ML SYRINGE IVP PRN ×2 (15:20→15:30)
[2019-08-04] MEDS ORDERED: ONDANSETRON 4 MG/2 ML VIAL IVP ONE (15:25)
[2019-08-04] MEDS ORDERED: METOCLOPRAMIDE 5 MG/ML 2 ML VIAL IVP ONE (15:51)
[2019-08-04] MEDS: ALBUTEROL NEBULIZED 2.5 MG/3 ML INHALATION SCH ×2 (16:00→20:38)
[2019-08-04 17:07] LABS: Glucose,Whole Blood 188 mg/dL (75-99)
[2019-08-04] MEDS: 0.9% NACL WITH KCL 20 MEQ/L 1,000 ML IV SCH (18:00)
[2019-08-04] MEDS: HYDROmorphone 1 MG/ML 1 ML SYRINGE IVP PRN (20:23)
[2019-08-04] MEDS: ONDANSETRON 4 MG/2 ML VIAL IVP PRN (20:23)
[2019-08-04] MEDS: HYOSCYAMINE ORAL DROPS 1.875 MG/15 ML BOTTLE PO PRN (20:24)
[2019-08-04] MEDS: SIMETHICONE 40 MG/0.6 ML DROPS 2,000 MG/30 ML BOTTLE PO PRN (20:24)
[2019-08-04 20:56] LABS: Glucose,Whole Blood 166 mg/dL (75-99)
[2019-08-04] MEDS: INSULIN ASPART (NovoLOG) 100 UNIT/ML VIAL SQ SCH (21:06)
--- NOTE | 2019-08-04 23:24 | CONS ---
CONSULTATION REASON FOR CONSULTATION: Advice regarding diabetes and other medical issues requested by Dr. Patton. HISTORY OF PRESENT ILLNESS: This 48-year-old woman with a past medical history of diabetes, GERD, hypertension, hyperlipidemia, being followed Dr. Kathy Carmona in the outpatient setting was admitted after laparoscopic sleeve gastrectomy by Dr. Patton. Postoperatively, the patient is slightly drowsy. There is no history of chest pain, palpitations, hematochezia or melena at this time. The blood sugar has been found to be 104, 196 and 188. PAST MEDICAL HISTORY: History of diabetes, GERD, hypertension, hyperlipidemia, history of iron deficiency anemia, history of cardiac catheterization. MEDICATIONS: Prior to admission home medications are: 1. Cetirizine. 2. Zyrtec 10 mg p.o. daily. 3. Tylenol #3 one tab q.4h 6 p.r.n. 4. Actos 15 mg p.o. daily. 5. Prilosec 20 mg a.c. breakfast. 6. Lasix 20 mg p.o. daily. 7. Metformin 500 mg p.o. daily. 8. Norvasc 10 mg p.o. daily. 9. Zocor 20 mg q.h.s. 10.Klor-Con 10 mEq p.o. daily. 11.Vitamin B1 p.o. daily. 12.Myrene 1 p.r.n. 13.Motrin 600 mg q.8 p.r.n. 14.Voltaren 75 mg p.o. b.i.d. p.r.n. 15.Vitamin D3 5000 daily. ALLERGIES: MARY INHIBITORS, ADHESIVE TAPES AND ULTRAM. FAMILY HISTORY: Family history of prostate cancer. SOCIAL HISTORY: No history of smoking. No history of alcohol intake. REVIEW OF SYSTEMS: ENT: No diminished vision. No diminished hearing. CARDIOVASCULAR: No angina or palpitations. RESPIRATION: No cough. No hemoptysis. GI as mentioned earlier. no dysuria or hematuria. NERVOUS SYSTEM: No numbness or weakness. ALLERGY/IMMUNOLOGY: No asthma or hayfever. MUSCULOSKELETAL as mentioned earlier. HEMATOLOGY/ONCOLOGY: No history of anemia. ENDOCRINE: Diabetes. CONSTITUTIONAL: As mentioned earlier. DERMATOLOGY: Negative. RHEUMATOLOGY negative. PSYCHIATRY as mentioned. PHYSICAL EXAMINATION: Alert and oriented x3. Pulse 69. Blood pressure 120/63, respirations 16, temperature normal, pulse ox 96% on room air. The patient is slightly drowsy but arousable. HEENT conjunctivae normal. Oral mucosa moist. NECK is no jugular venous distention. No carotid bruit. No lymph node enlargement. Cardiovascular system: S1, S2 muffled. Respirations: Breath sounds diminished in the bases. No rhonchi. No crackles. ABDOMEN: Soft. Status post surgery. LEGS: No edema. No swelling. Nervous system: Higher functions as mentioned earlier. Moves all 4 limbs. No focal motor or sensory deficits. Lymphatics: No lymph nodes palpable in the neck, axillae or groin. SKIN: No ulcer, no rashes. No bleeding. JOINTS: No active deforming arthropathy. LABS: Accu-Cheks 104, 196, 188. The preop labs are hemoglobin 10.9, MCV 68.5. Chemistry: Glucose 188, hemoglobin 6.8, ALT is 42. ASSESSMENT: 1. Status post laparoscopic sleeve gastrectomy. 2. Diabetes mellitus type 2. 3. Gastroesophageal reflux disease. 4. Hypertension. 5. Hyperlipidemia. 6. History of iron deficient anemia. 7. History of dependent edema. 8. History of cardiac catheterization. 9. Obesity with body mass of 43.7. 10.FULL CODE. RECOMMENDATIONS AND DISCUSSION: In this 48-year-old woman who presented after surgery, at this time, I recommend to continue with Norvasc and continue with insulin scale. Monitor blood sugars closely. The patient is currently n.p.o. Once the patient passes the protocol, the rest of the p.o. medications can be initiated. We will follow the patient closely with you and recommend continue with DVT prophylaxis and proton pump inhibitors. We will follow the patient closely with you. Thank you Dr. Patton for letting us participate in the care of this patient. MMODL / IJN: [id number] /
[2019-08-05] MEDS: 0.9% NACL WITH KCL 20 MEQ/L 1,000 ML IV SCH ×2 (00:27→08:11)
[2019-08-05] MEDS: ENOXAPARIN 40 MG/0.4 ML SYRINGE SQ SCH ×2 (00:27→15:24)
[2019-08-05] MEDS: HYDROmorphone 1 MG/ML 1 ML SYRINGE IVP PRN ×2 (01:18→07:57)
[2019-08-05] MEDS: ONDANSETRON 4 MG/2 ML VIAL IVP PRN ×3 (01:23→15:23)
[2019-08-05] MEDS: LACTATED RINGERS 1,000 ML IV SCH (03:34)
[2019-08-05 06:59] LABS: Glucose,Whole Blood 114 mg/dL (75-99)
[2019-08-05 07:15] LABS: Basophils % (A) 0 %; Eosinophils % (A) 0 %; HCT 33.3 % (34.0-46.0); Hypochromasia Marked; Lymphocytes # (A) 1.1 k/uL (1.0-4.8); Lymphocytes % (A) 15 %; MCH 20.9 pg (25.0-35.0); MCHC 29.9 g/dL (31.0-37.0); Mean Platelet Volume 7.5; Microcytosis Moderate; Monocytes # (A) 0.4 k/uL (0-1.0); Monocytes % (A) 5 %; Neutrophils # (A) 5.8 k/uL (1.3-7.7); Neutrophils % (A) 79 %; Platelet Count 311 k/uL (150-450); RBC 4.77 m/uL (3.80-5.40); RDW 15.6 % (11.5-15.5); WBC 7.4 k/uL (3.8-10.6)
[2019-08-05 07:22] LABS: African American GFR (CKD) >90 (>60 ml/min/1.73 sqM); Anion Gap 10 mmol/L; Blood Urea Nitrogen 7 mg/dL (7-17); Calcium 9.3 mg/dL (8.4-10.2); Carbon Dioxide 26 mmol/L (22-30); Chloride 103 mmol/L (98-107); Magnesium 1.7 mg/dL (1.6-2.3); Non-African American GFR(CKD) >90 (>60 ml/min/1.73 sqM); Phosphorus 3.2 mg/dL (2.5-4.5); Potassium 4.5 mmol/L (3.5-5.1); Sodium 139 mmol/L (137-145)
[2019-08-05] MEDS: ALBUTEROL NEBULIZED 2.5 MG/3 ML INHALATION SCH ×4 (07:47→18:56)
[2019-08-05] MEDS: INSULIN ASPART (NovoLOG) 100 UNIT/ML VIAL SQ SCH ×4 (07:55→20:08)
[2019-08-05] MEDS: amLODIPine 10 MG TAB PO SCH (07:56)
[2019-08-05] MEDS: PANTOPRAZOLE 40 MG/10 ML VIAL IV SCH (07:58)
--- NOTE | 2019-08-05 09:38 | FL ---
EXAMINATION TYPE: FL UGI DATE OF EXAM: 08/05/2019 CLINICAL HISTORY: Status post gastric sleeve. Postoperative examination. TECHNIQUE: Esophagram is performed utilizing Isovue 300. A total of 30 seconds of fluoroscopic time w as utilized during procedure. 21 fluoroscopic images were saved during the examination. COMPARISON: None. FINDINGS: The patient swallowed contrast without difficulty or delay. Esophageal peristalsis and mo tility are within normal limits. There is good flow of contrast along the diaphragmatic hiatus into proximal stomach and subsequent flow into gastric sleeve. There is good flow from distal sleeve into pylorus and duodenal sweep. Patient remains asymptomatic. There is no evidence of contrast extravasat ion to suggest leak. IMPRESSION: No evidence of leak or significant obstruction status post recent gastric sleeve surgery.
[2019-08-05 11:32] VITALS: BMI 43.7
[2019-08-05 11:35] LABS: Glucose,Whole Blood 95 mg/dL (75-99)
[2019-08-05] MEDS: METOCLOPRAMIDE 5 MG/ML 2 ML VIAL IVP PRN (12:14)
[2019-08-05] MEDS ORDERED: HYDROcodone/APAP 5-325MG 1 EACH TAB PO PRN (14:46)
--- NOTE | 2019-08-05 14:50 | P.PN ---
<BandarJordanChandni A - Last Filed: 08/05/19 14:43> Subjective Progress Note Date: 08/05/19 CHIEF COMPLAINT: morbid obesity HISTORY OF PRESENT ILLNESS: 48-year-old female who is status post laparoscopic sleeve gastrectomy with Dr. Patton. Postoperative day #1. Postoperative esophag annalise negative for leak or obstruction. Patient was started on clear liquid diet. Patient examined at the bedside this afternoon. She reports an small bilious emesis after drinking water. She reports tolerating ice chips earlier today. She reports abdominal pain but states it is tolerable at this time. WBC 7.4. Hemoglobin 10.0. vital signs stable. She is afebrile. PHYSICAL EXAM: VITAL SIGNS: Reviewed. GENERAL: Well-developed in no acute distress. HEENT: No sclera icterus. Extraocular movements grossly intact. Moist buccal mucosa. Head is atraumatic, normocephalic. ABDOMEN: Soft. Nondistended. Surgical sites clean dry and intact without drainage. NEUROLOGIC: Alert and oriented. Cranial nerves II through XII grossly intact. ASSESSMENT: 1. Morbid obesity, status post laparoscopic sleeve gastrectomy PLAN: -Patient was started on clear liquid diet this morning. However she had a small bilious emesis this afternoon after drinking water. Recommend ice chips only at this time until nausea improves -Continue Zofran. Add Reglan PRN -Pain control. Continue IV Dilaudid. Add Toradol as needed. Add [place]. -Incentive spirometer 10 times an hour -Increase activity as tolerated Nurse practitioner note has been reviewed by physician. Signing provider agrees with the documented findings, assessment, and plan of care. Objective - Vital Signs Vital signs: Vital Signs Temp 98.1 F 08/05/19 07:00 Pulse 70 08/05/19 11:43 Resp 18 08/05/19 07:00 BP 147/74 08/05/19 07:00 Pulse Ox 97 08/05/19 11:34 Intake & Output 08/04/19 08/05/19 08/05/19 18:59 06:59 18:59 Intake Total 1000 2090 Output Total 5 1420 Balance 995 670 Weight 122.924 kg 122.924 kg Intake: IV 1000 Intake, IV Titration 1500 Amount 0.9% NaCl with KCl 20 Meq 1500 /l 1,000 ml @ 150 mls/hr IV .Q6H40M KRISTEN Rx#: [id number] Oral 590 Output: Urine 1420 Estimated Blood Loss 5 Other: Voiding Method Toilet # Voids 1 2 - Labs CBC & Chem 7: 08/05/19 06:22 08/05/19 06:22 Labs: Abnormal Lab Results - Last 24 Hours (Table) 08/04/19 08/04/19 08/04/19 Range/Units 15:16 17:05 20:55 Hgb (11.4-16.0) gm/dL Hct (34.0-46.0) % MCV (80.0-100.0) fL MCH (25.0-35.0) pg MCHC (31.0-37.0) g/dL RDW (11.5-15.5) % POC Glucose (mg/dL) 196 H 188 H 166 H (75-99) mg/dL 08/05/19 08/05/19 Range/Units 06:22 06:58 Hgb 10.0 L (11.4-16.0) gm/dL Hct 33.3 L (34.0-46.0) % MCV 70.0 L (80.0-100.0) fL MCH 20.9 L (25.0-35.0) pg MCHC 29.9 L (31.0-37.0) g/dL RDW 15.6 H (11.5-15.5) % POC Glucose (mg/dL) 114 H (75-99) mg/dL <Karthik Patton - Last Filed: 08/05/19 20:45> Subjective As above. Patient doing well. Pain and nausea are improving. Upper GI shows no evidence of leak or obstruction. Hemoglobin 10.0 which is similar to her preoperative values. Continue bariatric liquids. Reevaluate tomorrow. Objective - Vital Signs Vital signs: Vital Signs Temp 97.8 F 08/05/19 19:18 Pulse 86 08/05/19 19:18 Resp 18 08/05/19 19:18 BP 144/75 08/05/19 19:18 Pulse Ox 96 08/05/19 19:18 Intake & Output 08/05/19 08/05/19 08/06/19 06:59 18:59 06:59 Intake Total 2090 Output Total 1420 Balance 670 Weight 122.924 kg Intake: Intake, IV Titration 1500 Amount 0.9% NaCl with KCl 20 Meq 1500 /l 1,000 ml @ 150 mls/hr IV .Q6H40M [facility] Rx#: [id number] Oral 590 Output: Urine 1420 Other: Voiding Method Toilet # Voids 1 2 - Labs CBC & Chem 7: 08/05/19 06:22 08/05/19 06:22 Labs: Abnormal Lab Results - Last 24 Hours (Table) 08/04/19 08/05/19 08/05/19 Range/Units 20:55 06:22 06:58 Hgb 10.0 L (11.4-16.0) gm/dL Hct 33.3 L (34.0-46.0) % MCV 70.0 L (80.0-100.0) fL MCH 20.9 L (25.0-35.0) pg MCHC 29.9 L (31.0-37.0) g/dL RDW 15.6 H (11.5-15.5) % POC Glucose (mg/dL) 166 H 114 H (75-99) mg/dL 08/05/19 08/05/19 Range/Units 16:48 19:57 Hgb (11.4-16.0) gm/dL Hct (34.0-46.0) % MCV (80.0-100.0) fL MCH (25.0-35.0) pg MCHC (31.0-37.0) g/dL RDW (11.5-15.5) % POC Glucose (mg/dL) 127 H 118 H (75-99) mg/dL Assessment and Plan (1) Morbid obesity Current Visit: Yes Status: Acute Code(s): E66.01 - MORBID (SEVERE) OBESITY DUE TO EXCESS CALORIES SNOMED Code(s): 800112128
[2019-08-05] MEDS: KETOROLAC 30 MG/ML 1 ML VIAL IVP PRN (15:32)
[2019-08-05 16:50] LABS: Glucose,Whole Blood 127 mg/dL (75-99)
--- NOTE | 2019-08-05 18:07 | PN ---
PROGRESS NOTE DATE OF SERVICE: 08/05/2019 This 48-year-old woman who was admitted after laparoscopic sleeve gastrectomy by Dr. Patton is being closely monitored. No chest pain. No palpitations. No fever. The upper GI series showed no evidence of any leak or significant obstruction. PHYSICAL EXAMINATION: Alert and oriented x3. Pulse 65, blood pressure 145/70, respiration 18, temperature 98.2, pulse ox 97% on room air. HEENT: Conjunctivae normal. NECK: No jugular venous distention. CARDIOVASCULAR SYSTEM: S1, S2 muffled. RESPIRATORY SYSTEM: Breath sounds diminished at the bases. No rhonchi. No crackles. ABDOMEN: Soft, status post surgery. LEGS: No edema. No swelling. NERVOUS SYSTEM: No focal deficit. LABS: WBC 7.5, hemoglobin is 10, MCV 70 and Accu-Cheks 114. ASSESSMENT: 1. Status post laparoscopic sleeve gastrectomy. 2. Diabetes mellitus, type 2. 3. Gastroesophageal reflux disease. 4. Hypertension. 5. Hyperlipidemia. 6. History of iron deficiency anemia. 7. History of dependent edema. 8. History of cardiac catheterization. 9. Obesity with body mass index of 43.7. 10.FULL CODE. RECOMMENDATIONS AND DISCUSSION: I recommend to continue current medications, continue with symptomatic treatment. Resume the rest of the home medications. Otherwise, closely follow with Dr. Patton. DVT prophylaxis. Incentive spirometry. Rest of the recommendations per Surgery. Further recommendations to follow. MMBOUBACARL / CAITYN: [id number] /
[2019-08-05 20:01] LABS: Glucose,Whole Blood 118 mg/dL (75-99)
[2019-08-05] MEDS: HYOSCYAMINE ORAL DROPS 1.875 MG/15 ML BOTTLE PO PRN (21:45)
[2019-08-05] MEDS: SIMETHICONE 40 MG/0.6 ML DROPS 2,000 MG/30 ML BOTTLE PO PRN (21:45)
[2019-08-06] MEDS: LACTATED RINGERS 1,000 ML IV SCH ×2 (03:56→20:33)
[2019-08-06 07:02] LABS: Glucose,Whole Blood 109 mg/dL (75-99)
[2019-08-06] MEDS: ALBUTEROL NEBULIZED 2.5 MG/3 ML INHALATION SCH ×4 (07:17→19:17)
[2019-08-06] MEDS: INSULIN ASPART (NovoLOG) 100 UNIT/ML VIAL SQ SCH ×4 (08:01→20:31)
[2019-08-06] MEDS: PANTOPRAZOLE 40 MG/10 ML VIAL IV SCH (08:06)
[2019-08-06] MEDS: PIOGLITAZONE 15 MG TAB PO SCH ×2 (08:07→10:18)
[2019-08-06] MEDS: LORATADINE 10 MG TAB PO SCH ×2 (08:07→10:18)
[2019-08-06] MEDS: amLODIPine 10 MG TAB PO SCH ×2 (08:07→10:18)
[2019-08-06] MEDS: FUROSEMIDE 20 MG TAB PO SCH (08:07)
[2019-08-06] MEDS: METOCLOPRAMIDE 5 MG/ML 2 ML VIAL IVP PRN (08:24)
--- NOTE | 2019-08-06 10:24 | P.PN ---
<PortilloChandni Roscoe - Last Filed: 08/06/19 10:21> Subjective Progress Note Date: 08/06/19 CHIEF COMPLAINT: morbid obesity HISTORY OF PRESENT ILLNESS: 48-year-old female who is status post laparoscopic sleeve gastrectomy with Dr. Patton. Postoperative day #2. Patient reports her p ain is tolerable this morning. She is receiving Toradol only for pain. No narcotics. She continues to report nausea. She had an episode of emesis this morning after drinking water to take a pill. She is hesitant to attempt to drink anymore liquids at this time because she is afraid she is going to throw up. patient has been and bleeding in the hallway. Vital signs are stable. She is afebrile. PHYSICAL EXAM: VITAL SIGNS: Reviewed. GENERAL: Well-developed in no acute distress. HEENT: No sclera icterus. Extraocular movements grossly intact. Moist buccal mucosa. Head is atraumatic, normocephalic. ABDOMEN: Soft. Nondistended. Surgical sites clean dry and intact without drainage. NEUROLOGIC: Alert and oriented. Cranial nerves II through XII grossly intact. ASSESSMENT: 1. Morbid obesity, status post laparoscopic sleeve gastrectomy PLAN: -Continue clear liquid diet -Continue Zofran and Reglan -Pain control. Continue Toradol. -Incentive spirometer 10 times an hour -Increase activity as tolerated -No discharge until patient is able to tolerate liquids Nurse practitioner note has been reviewed by physician. Signing provider agrees with the documented findings, assessment, and plan of care. Objective - Vital Signs Vital signs: Vital Signs Temp 98.4 F 08/06/19 07:00 Pulse 68 08/06/19 07:26 Resp 16 08/06/19 07:00 BP 132/73 08/06/19 07:00 Pulse Ox 99 08/06/19 07:00 Intake & Output 08/05/19 08/06/19 08/06/19 18:59 06:59 18:59 Intake Total 1951.2 340 Balance 1951.2 340 Weight 122.924 kg Intake: Intake, IV Titration 1161.2 Amount 0.9% NaCl with KCl 20 Meq 150 /l 1,000 ml @ 150 mls/hr IV .Q6H40M K[facility]STEN Rx#: [id number] Mvi, Adult No.4 with Vit 1011.2 K 10 ml Thiamine 100 mg Folic Acid 1 mg In 0.9% NaCl with KCl 20 Meq/l 1, 000 ml @ 100 mls/hr IV . BY DURATION KRISTEN Rx#: [id number] Oral 790 340 Other: Voiding Method Toilet # Voids 2 3 - Labs CBC & Chem 7: 08/05/19 06:22 08/05/19 06:22 Labs: Abnormal Lab Results - Last 24 Hours (Table) 08/05/19 08/05/19 08/06/19 Range/Units 16:48 19:57 06:54 POC Glucose (mg/dL) 127 H 118 H 109 H (75-99) mg/dL <Karthik Patton - Last Filed: 08/06/19 18:58> Subjective As above. Patient doing better this afternoon. Was nauseated this morning. Tolerating diet better. Still with less than 10 ounces of liquids today however. Continue IV hydration. Agree with Decadron. Hopefully discharge tomorrow. Objective - Vital Signs Vital signs: Vital Signs Temp 98.2 F 08/06/19 13:39 Pulse 75 08/06/19 15:31 Resp 14 08/06/19 13:39 BP 158/84 08/06/19 13:39 Pulse Ox 99 08/06/19 13:39 Intake & Output 08/05/19 08/06/19 08/06/19 18:59 06:59 18:59 Intake Total 1951.2 1340 Balance 1951.2 1340 Weight 122.924 kg Intake: Intake, IV Titration 1161.2 1000 Amount 0.9% NaCl with KCl 20 Meq 1000 /l 1,000 ml @ 100 mls/hr IV .BY DURATION KRISTEN Rx#: [id number] 0.9% NaCl with KCl 20 Meq 150 /l 1,000 ml @ 150 mls/hr IV .Q6H40M KRISTEN Rx#: [id number] Mvi, Adult No.4 with Vit 1011.2 K 10 ml Thiamine 100 mg Folic Acid 1 mg In 0.9% NaCl with KCl 20 Meq/l 1, 000 ml @ 100 mls/hr IV . BY DURATION KRISTEN Rx#: [id number] Oral 790 340 Other: Voiding Method Toilet # Voids 2 3 2 - Labs CBC & Chem 7: 08/06/19 10:56 08/06/19 10:56 Labs: Abnormal Lab Results - Last 24 Hours (Table) 08/05/19 08/06/19 08/06/19 Range/Units 19:57 06:54 10:56 Hgb 10.5 L (11.4-16.0) gm/dL MCV 68.8 L (80.0-100.0) fL MCH 20.6 L (25.0-35.0) pg MCHC 29.9 L (31.0-37.0) g/dL RDW 15.7 H (11.5-15.5) % BUN (7-17) mg/dL Glucose (74-99) mg/dL POC Glucose (mg/dL) 118 H 109 H (75-99) mg/dL 08/06/19 08/06/19 08/06/19 Range/Units 10:56 11:31 16:40 Hgb (11.4-16.0) gm/dL MCV (80.0-100.0) fL MCH (25.0-35.0) pg MCHC (31.0-37.0) g/dL RDW (11.5-15.5) % BUN 6 L (7-17) mg/dL Glucose 110 H (74-99) mg/dL POC Glucose (mg/dL) 108 H 133 H (75-99) mg/dL Assessment and Plan (1) Morbid obesity Current Visit: Yes Status: Acute Code(s): E66.01 - MORBID (SEVERE) OBESITY DUE TO EXCESS CALORIES SNOMED Code(s): 068636742
[2019-08-06] MEDS ORDERED: DEXAMETHASONE SOD PHOSPHATE 10 MG/ML 1 ML VIAL IV STA (11:22)
[2019-08-06 11:33] LABS: Glucose,Whole Blood 108 mg/dL (75-99)
[2019-08-06] MEDS: ENOXAPARIN 40 MG/0.4 ML SYRINGE SQ SCH ×3 (11:52→23:56)
[2019-08-06 11:56] LABS: African American GFR (CKD) >90 (>60 ml/min/1.73 sqM); Anion Gap 9 mmol/L; Blood Urea Nitrogen 6 mg/dL (7-17); Calcium 9.5 mg/dL (8.4-10.2); Carbon Dioxide 26 mmol/L (22-30); Chloride 104 mmol/L (98-107); Glucose 110 mg/dL (74-99); Magnesium 1.8 mg/dL (1.6-2.3); Non-African American GFR(CKD) >90 (>60 ml/min/1.73 sqM); Potassium 4.2 mmol/L (3.5-5.1); Sodium 139 mmol/L (137-145)
[2019-08-06 12:01] LABS: Basophils # (A) 0.1 k/uL (0-0.2); Basophils % (A) 1 %; Eosinophils # (A) 0.1 k/uL (0-0.7); Eosinophils % (A) 1 %; HCT 35.3 % (34.0-46.0); HGB 10.5 gm/dL (11.4-16.0); Hypochromasia Marked; Lymphocytes # (A) 2.1 k/uL (1.0-4.8); Lymphocytes % (A) 25 %; MCH 20.6 pg (25.0-35.0); MCHC 29.9 g/dL (31.0-37.0); MCV 68.8 fL (80.0-100.0); Mean Platelet Volume 10.2; Microcytosis Marked; Monocytes # (A) 0.7 k/uL (0-1.0); Monocytes % (A) 8 %; Neutrophils # (A) 5.3 k/uL (1.3-7.7); Neutrophils % (A) 63 %; RBC 5.13 m/uL (3.80-5.40); RDW 15.7 % (11.5-15.5); WBC 8.5 k/uL (3.8-10.6)
[2019-08-06 12:26] LABS: Platelet Count 171 k/uL (150-450)
[2019-08-06 16:41] LABS: Glucose,Whole Blood 133 mg/dL (75-99)
[2019-08-06] MEDS: KETOROLAC 30 MG/ML 1 ML VIAL IVP PRN ×3 (17:17→23:56)
[2019-08-06 20:21] LABS: Glucose,Whole Blood 142 mg/dL (75-99)
[2019-08-06] MEDS: ATORVASTATIN 10 MG TAB PO SCH (20:26)
--- NOTE | 2019-08-06 21:47 | PN ---
PROGRESS NOTE DATE OF SERVICE: 08/06/2019 This 48-year-old woman who was admitted after laparoscopic sleeve gastrectomy is being closely monitored at this time. The patient is working on incentive spirometry. No chest pain. No palpitations. Occasional cough is reported. PHYSICAL EXAMINATION: Alert and oriented x3. Pulse 64, blood pressure 158/64, respiration 14, temperature 98.2, pulse ox 99% on room air. HEENT: Conjunctivae normal. NECK: No jugular venous distention. CARDIOVASCULAR SYSTEM: S1, S2 muffled. RESPIRATORY SYSTEM: Breath sounds diminished at the bases. A few scattered rhonchi. ABDOMEN: Soft, obese, status post surgery. LEGS: No edema. No swelling. NERVOUS SYSTEM: No focal deficit. LABS: WBC 8.5, hemoglobin is 10.5, MCV 68.8. ASSESSMENT: 1. Status post laparoscopic sleeve gastrectomy. 2. Diabetes mellitus, type 2. 3. Gastroesophageal reflux disease. 4. Hypertension. 5. Hyperlipidemia. 6. History of iron deficiency anemia. 7. History of dependent edema. 8. History of cardiac catheterization. 9. Obesity with body mass index of 43.7. 10.FULL CODE. RECOMMENDATIONS AND DISCUSSION: I recommend to continue current medications, continue with the monitoring, symptomatic treatment, incentive spirometry. DVT prophylaxis. Closely follow with Surgery. Further recommendations to follow. MMODL / IJN: [id number] /
[2019-08-07 06:56] LABS: Glucose,Whole Blood 101 mg/dL (75-99)
[2019-08-07] MEDS: INSULIN ASPART (NovoLOG) 100 UNIT/ML VIAL SQ SCH ×4 (07:08→20:53)
[2019-08-07] MEDS: ALBUTEROL NEBULIZED 2.5 MG/3 ML INHALATION SCH ×4 (08:17→20:14)
[2019-08-07] MEDS: PANTOPRAZOLE 40 MG/10 ML VIAL IV SCH (09:55)
[2019-08-07] MEDS: KETOROLAC 30 MG/ML 1 ML VIAL IVP PRN ×2 (09:56→16:26)
[2019-08-07] MEDS: amLODIPine 10 MG TAB PO SCH (10:00)
[2019-08-07] MEDS: PIOGLITAZONE 15 MG TAB PO SCH (10:00)
[2019-08-07] MEDS: LORATADINE 10 MG TAB PO SCH (10:00)
[2019-08-07] MEDS: FUROSEMIDE 20 MG TAB PO SCH (10:00)
[2019-08-07 11:55] LABS: Glucose,Whole Blood 84 mg/dL (75-99)
--- NOTE | 2019-08-07 12:15 | P.PN ---
<PortilloChandni Roscoe - Last Filed: 08/07/19 12:14> Subjective Progress Note Date: 08/07/19 CHIEF COMPLAINT: morbid obesity HISTORY OF PRESENT ILLNESS: 48-year-old female who is status post laparoscopic sleeve gastrectomy with Dr. Patton. Postoperative day #3. patient examined this morning the bedside. She is tolerating liquids without nausea or vomiting. She does report some discomfort with swallowing liquids. At the time of my examination patient has only drank a few sips of broth and 2 ounces of water. Her pain is tolerable. Vital signs are stable. She is afebrile. PHYSICAL EXAM: VITAL SIGNS: Reviewed. GENERAL: Well-developed in no acute distress. HEENT: No sclera icterus. Extraocular movements grossly intact. Moist buccal mucosa. Head is atraumatic, normocephalic. ABDOMEN: Soft. Nondistended. Surgical sites clean dry and intact without drainage. NEUROLOGIC: Alert and oriented. Cranial nerves II through XII grossly intact. ASSESSMENT: 1. Morbid obesity, status post laparoscopic sleeve gastrectomy PLAN: -Continue clear liquid diet -Continue Zofran and Reglan PRN -Pain control. Continue Toradol. -Incentive spirometer 10 times an hour -Increase activity as tolerated -Begin Decadron 4 mg IV every 8 hours -Discharge home once patient able to tolerate adequate fluid intake Nurse practitioner note has been reviewed by physician. Signing provider agrees with the documented findings, assessment, and plan of care. Objective - Vital Signs Vital signs: Vital Signs Temp 98.1 F 08/07/19 07:14 Pulse 68 08/07/19 12:05 Resp 16 08/07/19 07:14 BP 119/71 08/07/19 07:14 Pulse Ox 98 08/07/19 07:14 Intake & Output 08/06/19 08/07/19 08/07/19 18:59 06:59 18:59 Intake Total 1340 1681.667 Balance 1340 1681.667 Intake: Intake, IV Titration 1000 1681.667 Amount 0.9% NaCl with KCl 20 Meq 1000 /l 1,000 ml @ 100 mls/hr IV .BY DURATION [facility] Rx#: [id number] Lactated Ringers 1,000 ml 800 @ 0 mls/hr IV .[facility] Rx#:[id number] Mvi, Adult No.4 with Vit 881.667 K 10 ml Thiamine 100 mg Folic Acid 1 mg In 0.9% NaCl with KCl 20 Meq/l 1, 000 ml @ 100 mls/hr IV . BY DURATION [facility] Rx#: [id number] Oral 340 Other: Voiding Method Toilet # Voids 2 2 - Labs CBC & Chem 7: 08/06/19 10:56 08/06/19 10:56 Labs: Abnormal Lab Results - Last 24 Hours (Table) 08/06/19 08/06/19 08/06/19 Range/Units 10:56 16:40 20:19 Hgb 10.5 L (11.4-16.0) gm/dL MCV 68.8 L (80.0-100.0) fL MCH 20.6 L (25.0-35.0) pg MCHC 29.9 L (31.0-37.0) g/dL RDW 15.7 H (11.5-15.5) % POC Glucose (mg/dL) 133 H 142 H (75-99) mg/dL 08/07/19 Range/Units 06:52 Hgb (11.4-16.0) gm/dL MCV (80.0-100.0) fL MCH (25.0-35.0) pg MCHC (31.0-37.0) g/dL RDW (11.5-15.5) % POC Glucose (mg/dL) 101 H (75-99) mg/dL <Karthik Patton - Last Filed: 08/07/19 16:05> Subjective as above. Patient says she is having some crampy pain when swallowing liquids. She has had about 12 ounces so far today. In between sips has no discomfort. She is afebrile. We'll check CBC tomorrow. Hopefully discharge tomorrow. Objective - Vital Signs Vital signs: Vital Signs Temp 98.5 F 08/07/19 13:15 Pulse 60 08/07/19 16:03 Resp 16 08/07/19 13:15 BP 124/69 08/07/19 13:15 Pulse Ox 96 08/07/19 16:03 Intake & Output 08/06/19 08/07/19 08/07/19 18:59 06:59 18:59 Intake Total 1340 1681.667 Balance 1340 1681.667 Intake: Intake, IV Titration 1000 1681.667 Amount 0.9% NaCl with KCl 20 Meq 1000 /l 1,000 ml @ 100 mls/hr IV .BY DURATION [facility] Rx#: [id number] Lactated Ringers 1,000 ml 800 @ 0 mls/hr IV .[facility] Rx#:[id number] Mvi, Adult No.4 with Vit 881.667 K 10 ml Thiamine 100 mg Folic Acid 1 mg In 0.9% NaCl with KCl 20 Meq/l 1, 000 ml @ 100 mls/hr IV . BY DURATION [facility] Rx#: [id number] Oral 340 Other: Voiding Method Toilet # Voids 2 2 1 - Labs CBC & Chem 7: 08/06/19 10:56 08/06/19 10:56 Labs: Abnormal Lab Results - Last 24 Hours (Table) 08/06/19 08/06/19 08/07/19 Range/Units 16:40 20:19 06:52 POC Glucose (mg/dL) 133 H 142 H 101 H (75-99) mg/dL Assessment and Plan (1) Morbid obesity Current Visit: Yes Status: Acute Code(s): E66.01 - MORBID (SEVERE) OBESITY DUE TO EXCESS CALORIES SNOMED Code(s): 049195016
--- NOTE | 2019-08-07 14:14 | P.PN ---
Subjective Patient blood pressure is well-controlled patient is tolerating by mouth liquid diet no overnight events. Constitutional: Denied any fatigue denied any fever. Cardio vascular: denied any chest pain, palpitations Gastrointestinal denied any nausea vomiting Pulmonary: Denied any shortness of breath cough Neurologic denied any new focal deficits All inpatient medications were reviewed and appropriate changes in these medications as dictated in the interval history and assessment and plan. Objective - Vital Signs Vital signs: Vital Signs Temp 98.1 F 08/07/19 07:14 Pulse 68 08/07/19 12:05 Resp 16 08/07/19 07:14 BP 119/71 08/07/19 07:14 Pulse Ox 98 08/07/19 07:14 Intake & Output 08/06/19 08/07/19 08/07/19 18:59 06:59 18:59 Intake Total 1340 1681.667 Balance 1340 1681.667 Intake: Intake, IV Titration 1000 1681.667 Amount 0.9% NaCl with KCl 20 Meq 1000 /l 1,000 ml @ 100 mls/hr IV .BY DURATION [facility] Rx#: [id number] Lactated Ringers 1,000 ml 800 @ 0 mls/hr IV .[facility] Rx#:[id number] Mvi, Adult No.4 with Vit 881.667 K 10 ml Thiamine 100 mg Folic Acid 1 mg In 0.9% NaCl with KCl 20 Meq/l 1, 000 ml @ 100 mls/hr IV . BY DURATION [facility] Rx#: [id number] Oral 340 Other: Voiding Method Toilet # Voids 2 2 - Exam PHYSICAL EXAMINATION: GENERAL: The patient is alert and oriented x3, not in any acute distress. Obese HEENT: Pupils are round and equally reacting to light. EOMI. No scleral icterus. No conjunctival pallor. Normocephalic, atraumatic. No pharyngeal erythema. No thyromegaly. CARDIOVASCULAR: S1 and S2 present. No murmurs, rubs, or gallops. PULMONARY: Chest is clear to auscultation, no wheezing or crackles. ABDOMEN: Soft, nontender, nondistended, normoactive bowel sounds. No palpable organomegaly. MUSCULOSKELETAL: No joint swelling or deformity. EXTREMITIES: No cyanosis, clubbing, or pedal edema. NEUROLOGICAL: Gross neurological examination did not reveal any focal deficits. SKIN: No rashes. - Labs CBC & Chem 7: 08/06/19 10:56 08/06/19 10:56 Labs: Abnormal Lab Results - Last 24 Hours (Table) 08/06/19 08/06/19 08/07/19 Range/Units 16:40 20:19 06:52 POC Glucose (mg/dL) 133 H 142 H 101 H (75-99) mg/dL Assessment and Plan Plan: Status post laparoscopic sleeve gastrectomy postoperative day one able to tolerate clear liquid diet. -Hypertension patient was resumed on her antidepressant medication with well- controlled blood pressures patient to can continue these medications upon discharge as well -Type 2 diabetes mellitus patient was resumed on her home regimen including Actos metformin and sliding scale insulin, blood sugars are well controlled and patient oral hypoglycemic agent requirement may come down down the line once she loses weight. -Gastroesophageal reflux disease -Hyperlipidemia
[2019-08-07] MEDS: ENOXAPARIN 40 MG/0.4 ML SYRINGE SQ SCH (16:26)
[2019-08-07] MEDS: DEXAMETHASONE SOD PHOSPHATE 4 MG/ML 1 ML VIAL IV SCH (16:27)
[2019-08-07 17:29] LABS: Glucose,Whole Blood 97 mg/dL (75-99)
[2019-08-07] MEDS: ATORVASTATIN 10 MG TAB PO SCH (20:25)
[2019-08-07 20:33] LABS: Glucose,Whole Blood 135 mg/dL (75-99)
[2019-08-08] MEDS: DEXAMETHASONE SOD PHOSPHATE 4 MG/ML 1 ML VIAL IV SCH ×4 (00:01→23:27)
[2019-08-08] MEDS: ENOXAPARIN 40 MG/0.4 ML SYRINGE SQ SCH ×2 (00:01→15:25)
[2019-08-08] MEDS: LACTATED RINGERS 1,000 ML IV SCH (05:41)
[2019-08-08 07:06] LABS: Glucose,Whole Blood 112 mg/dL (75-99)
[2019-08-08] MEDS: INSULIN ASPART (NovoLOG) 100 UNIT/ML VIAL SQ SCH ×4 (07:11→20:54)
[2019-08-08] MEDS: ALBUTEROL NEBULIZED 2.5 MG/3 ML INHALATION SCH ×4 (07:50→19:07)
[2019-08-08 08:40] LABS: Basophils % (A) 0 %; Eosinophils % (A) 1 %; HCT 34.9 % (34.0-46.0); HGB 10.4 gm/dL (11.4-16.0); Hypochromasia Marked; Lymphocytes # (A) 1.2 k/uL (1.0-4.8); Lymphocytes % (A) 18 %; MCH 20.6 pg (25.0-35.0); MCHC 29.7 g/dL (31.0-37.0); MCV 69.5 fL (80.0-100.0); Mean Platelet Volume 7.6; Microcytosis Marked; Monocytes # (A) 0.2 k/uL (0-1.0); Monocytes % (A) 3 %; Neutrophils # (A) 5.1 k/uL (1.3-7.7); Neutrophils % (A) 77 %; Platelet Count 332 k/uL (150-450); RBC 5.02 m/uL (3.80-5.40); RDW 15.7 % (11.5-15.5); WBC 6.6 k/uL (3.8-10.6)
[2019-08-08] MEDS: PIOGLITAZONE 15 MG TAB PO SCH (09:24)
[2019-08-08] MEDS: FUROSEMIDE 20 MG TAB PO SCH (09:24)
[2019-08-08] MEDS: amLODIPine 10 MG TAB PO SCH (09:24)
[2019-08-08] MEDS: LORATADINE 10 MG TAB PO SCH (09:24)
[2019-08-08] MEDS: PANTOPRAZOLE 40 MG/10 ML VIAL IV SCH (09:24)
--- NOTE | 2019-08-08 09:46 | P.PN ---
<Chandni Portillo Roscoe - Last Filed: 08/08/19 09:42> Subjective Progress Note Date: 08/08/19 CHIEF COMPLAINT: morbid obesity HISTORY OF PRESENT ILLNESS: 48-year-old female who is status post laparoscopic sleeve gastrectomy with Dr. Patton. Postoperative day #4. patient examined this morning the bedside. She is tolerating liquids without nausea or vomiting. she does report some discomfort still with swallowing liquids. She has increased her fluid intake over the last 24 hours. Patient reports drinking a 20 ounce cup of water throughout the night. This morning she has drank a few sips of breath and 4 ounces of apple juice. She is hoping to be discharged home today. PHYSICAL EXAM: VITAL SIGNS: Reviewed. GENERAL: Well-developed in no acute distress. HEENT: No sclera icterus. Extraocular movements grossly intact. Moist buccal mucosa. Head is atraumatic, normocephalic. ABDOMEN: Soft. Nondistended. Surgical sites clean dry and intact without d rainage. NEUROLOGIC: Alert and oriented. Cranial nerves II through XII grossly intact. ASSESSMENT: 1. Morbid obesity, status post laparoscopic sleeve gastrectomy PLAN: Continue clear liquid diet. Anticipate discharge home this afternoon if patient continues to do well with oral fluids. Nurse practitioner note has been reviewed by physician. Signing provider agrees with the documented findings, assessment, and plan of care. Objective - Vital Signs Vital signs: Vital Signs Temp 98 F 08/08/19 07:25 Pulse 60 08/08/19 07:51 Resp 16 08/08/19 07:25 BP 115/71 08/08/19 07:25 Pulse Ox 98 08/08/19 07:25 Intake & Output 08/07/19 08/08/19 08/08/19 18:59 06:59 18:59 Intake Total 1011.2 Balance 1011.2 Intake: Intake, IV Titration 1011.2 Amount Mvi, Adult No.4 with Vit 1011.2 K 10 ml Thiamine 100 mg Folic Acid 1 mg In 0.9% NaCl with KCl 20 Meq/l 1, 000 ml @ 100 mls/hr IV . BY DURATION [facility] Rx#: [id number] Other: Voiding Method Toilet Toilet # Voids 1 1 - Labs CBC & Chem 7: 08/08/19 07:58 08/06/19 10:56 Labs: Abnormal Lab Results - Last 24 Hours (Table) 08/07/19 08/08/19 08/08/19 Range/Units 20:21 06:54 07:58 Hgb 10.4 L (11.4-16.0) gm/dL MCV 69.5 L (80.0-100.0) fL MCH 20.6 L (25.0-35.0) pg MCHC 29.7 L (31.0-37.0) g/dL RDW 15.7 H (11.5-15.5) % POC Glucose (mg/dL) 135 H 112 H (75-99) mg/dL <Karthik Patton - Last Filed: 08/08/19 19:41> Subjective As above. Patient taking in only about 12 ounces today supposedly. Some discomfort when drinking in between sips has no pain. White blood cell count normal. She is afebrile. Patient will continue to try more liquids. Likely discharge tomorrow morning. Objective - Vital Signs Vital signs: Vital Signs Temp 97.7 F 08/08/19 14:50 Pulse 60 08/08/19 19:18 Resp 16 08/08/19 14:50 BP 134/83 08/08/19 14:50 Pulse Ox 92 L 08/08/19 14:50 Intake & Output 08/08/19 08/08/19 08/09/19 06:59 18:59 06:59 Intake Total 240 Balance 240 Intake: Oral 240 Other: Voiding Method Toilet # Voids 1 2 - Labs CBC & Chem 7: 08/08/19 07:58 08/06/19 10:56 Labs: Abnormal Lab Results - Last 24 Hours (Table) 08/07/19 08/08/19 08/08/19 Range/Units 20:21 06:54 07:58 Hgb 10.4 L (11.4-16.0) gm/dL MCV 69.5 L (80.0-100.0) fL MCH 20.6 L (25.0-35.0) pg MCHC 29.7 L (31.0-37.0) g/dL RDW 15.7 H (11.5-15.5) % POC Glucose (mg/dL) 135 H 112 H (75-99) mg/dL 08/08/19 08/08/19 Range/Units 11:44 17:13 Hgb (11.4-16.0) gm/dL MCV (80.0-100.0) fL MCH (25.0-35.0) pg MCHC (31.0-37.0) g/dL RDW (11.5-15.5) % POC Glucose (mg/dL) 126 H 119 H (75-99) mg/dL Assessment and Plan (1) Morbid obesity Current Visit: Yes Status: Acute Code(s): E66.01 - MORBID (SEVERE) OBESITY DUE TO EXCESS CALORIES SNOMED Code(s): 161047782
[2019-08-08] MEDS: KETOROLAC 30 MG/ML 1 ML VIAL IVP PRN ×2 (11:02→23:33)
[2019-08-08 11:56] LABS: Glucose,Whole Blood 126 mg/dL (75-99)
--- NOTE | 2019-08-08 14:15 | P.PN ---
Subjective Patient blood pressure is well-controlled patient is tolerating by mouth liquid diet no overnight events. 08/08/2019 no overnight events patient is tolerating a liquid diet as passing gas did not move her bowel yet. Constitutional: Denied any fatigue denied any fever. Cardio vascular: denied any chest pain, palpitations Gastrointestinal denied any nausea vomiting Pulmonary: Denied any shortness of breath cough Neurologic denied any new focal deficits All inpatient medications were reviewed and appropriate changes in these medications as dictated in the interval history and assessment and plan. Objective - Vital Signs Vital signs: Vital Signs Temp 98 F 08/08/19 07:25 Pulse 60 08/08/19 11:26 Resp 16 08/08/19 07:25 BP 115/71 08/08/19 07:25 Pulse Ox 98 08/08/19 07:25 Intake & Output 08/07/19 08/08/19 08/08/19 18:59 06:59 18:59 Intake Total 1011.2 Balance 1011.2 Intake: Intake, IV Titration 1011.2 Amount Mvi, Adult No.4 with Vit 1011.2 K 10 ml Thiamine 100 mg Folic Acid 1 mg In 0.9% NaCl with KCl 20 Meq/l 1, 000 ml @ 100 mls/hr IV . BY DURATION [facility] Rx#: [id number] Other: Voiding Method Toilet Toilet # Voids 1 1 - Exam PHYSICAL EXAMINATION: GENERAL: The patient is alert and oriented x3, not in any acute distress. Obese HEENT: Pupils are round and equally reacting to light. EOMI. No scleral icterus. No conjunctival pallor. Normocephalic, atraumatic. No pharyngeal erythema. No thyromegaly. CARDIOVASCULAR: S1 and S2 present. No murmurs, rubs, or gallops. PULMONARY: Chest is clear to auscultation, no wheezing or crackles. ABDOMEN: Soft, nontender, nondistended, normoactive bowel sounds. No palpable organomegaly. MUSCULOSKELETAL: No joint swelling or deformity. EXTREMITIES: No cyanosis, clubbing, or pedal edema. NEUROLOGICAL: Gross neurological examination did not reveal any focal deficits. SKIN: No rashes. - Labs CBC & Chem 7: 08/08/19 07:58 08/06/19 10:56 Labs: Abnormal Lab Results - Last 24 Hours (Table) 08/07/19 08/08/19 08/08/19 Range/Units 20:21 06:54 07:58 Hgb 10.4 L (11.4-16.0) gm/dL MCV 69.5 L (80.0-100.0) fL MCH 20.6 L (25.0-35.0) pg MCHC 29.7 L (31.0-37.0) g/dL RDW 15.7 H (11.5-15.5) % POC Glucose (mg/dL) 135 H 112 H (75-99) mg/dL 08/08/19 Range/Units 11:44 Hgb (11.4-16.0) gm/dL MCV (80.0-100.0) fL MCH (25.0-35.0) pg MCHC (31.0-37.0) g/dL RDW (11.5-15.5) % POC Glucose (mg/dL) 126 H (75-99) mg/dL Assessment and Plan Plan: Status post laparoscopic sleeve gastrectomy postoperative day one able to tolerate clear liquid diet. -Hypertension patient was resumed on her antidepressant medication with well- controlled blood pressures patient to can continue these medications upon discharge as well -Type 2 diabetes mellitus patient was resumed on her home regimen including Actos metformin and sliding scale insulin, blood sugars are well controlled and patient oral hypoglycemic agent requirement may come down down the line once she loses weight. -Gastroesophageal reflux disease -Hyperlipidemia
[2019-08-08 17:15] LABS: Glucose,Whole Blood 119 mg/dL (75-99)
[2019-08-08 20:36] LABS: Glucose,Whole Blood 148 mg/dL (75-99)
[2019-08-08] MEDS: ATORVASTATIN 10 MG TAB PO SCH (20:54)
[2019-08-09] MEDS: ENOXAPARIN 40 MG/0.4 ML SYRINGE SQ SCH (02:21)
[2019-08-09] MEDS: LACTATED RINGERS 1,000 ML IV SCH (02:21)
[2019-08-09 02:25] VITALS: TEMP 97.8
[2019-08-09 07:12] LABS: Glucose,Whole Blood 129 mg/dL (75-99)
[2019-08-09] MEDS: ALBUTEROL NEBULIZED 2.5 MG/3 ML INHALATION SCH ×2 (07:46→11:20)
[2019-08-09] MEDS: INSULIN ASPART (NovoLOG) 100 UNIT/ML VIAL SQ SCH ×2 (08:23→12:59)
[2019-08-09 08:27] VITALS: BP 133/77; RESP 18
[2019-08-09] MEDS: LORATADINE 10 MG TAB PO SCH (09:02)
[2019-08-09] MEDS: FUROSEMIDE 20 MG TAB PO SCH (09:02)
[2019-08-09] MEDS: PIOGLITAZONE 15 MG TAB PO SCH (09:02)
[2019-08-09] MEDS: DEXAMETHASONE SOD PHOSPHATE 4 MG/ML 1 ML VIAL IV SCH (09:02)
[2019-08-09] MEDS: amLODIPine 10 MG TAB PO SCH (09:02)
[2019-08-09] MEDS: PANTOPRAZOLE 40 MG/10 ML VIAL IV SCH (09:03)
[2019-08-09 11:27] VITALS: PULSE 68
[2019-08-09 11:29] LABS: Glucose,Whole Blood 127 mg/dL (75-99)
--- NOTE | 2019-08-09 11:37 | P.DS ---
Providers Date of admission: 08/04/19 11:04 Expected date of discharge: 08/09/19 Attending physician: Karthik Patton Consults: 08/04/19 15:02 Consult Physician Routine Consulting Provider: Reuben Khan Consult Reason/Comments: Medical management Do you want consulting provider notified?: Yes Primary care physician: Kathy Carmona [facility] Course: this is a 49-year-old female underwent sleeve gastrectomy. Patient had some issues with dysphagia and and tolerating her liquid diet. Please hospital chart for details. Procedures: laparoscopic sleeve gastrectomy Patient Condition at Discharge: Good Plan - Discharge Summary Discharge Rx Participant: No New Discharge Prescriptions: New Bisacodyl [Dulcolax] 5 mg PO DAILY PRN #10 tablet.dr PRN Reason: Constipation Simethicone 40 mg/0.6 ml Drops [Mylicon Drops] 40 mg PO PCHS PRN #30 ml PRN Reason: gas Omeprazole 40 mg PO DAILY #30 cap Ondansetron Odt [Zofran Odt] 4 mg PO Q8HR PRN #9 tab PRN Reason: Nausea Continue Acetaminophen-Codeine 300-30mg [Tylenol w/codeine #3] 1 tab PO Q4-6H PRN PRN Reason: Pain Discontinued Omeprazole [PriLOSEC] 20 mg PO AC-BRKFST #90 cap No Action Cholecalciferol [Vitamin D3] 5,000 unit PO DAILY Simvastatin [Zocor] 20 mg PO HS Pioglitazone [Actos] 15 mg PO DAILY Cetirizine HCl [Zyrtec] 10 mg PO DAILY metFORMIN HCL 500 mg PO DAILY amLODIPine [Norvasc] 10 mg PO DAILY Potassium Chloride [Klor-Con 10] 10 meq PO DAILY Furosemide [Lasix] 20 mg PO DAILY Ibuprofen [Motrin] 600 mg PO Q8HR PRN PRN Reason: Pain Diclofenac Sodium [Voltaren] 75 mg PO BID PRN PRN Reason: Pain Vitamin B1 (Unknown Dose) 1 tab PO DAILY Levonorgestrel [Mirena] 1 each IY DIRECTED Discharge Medication List Cetirizine HCl [Zyrtec] 10 mg PO DAILY 08/21/18 [History] Cholecalciferol [Vitamin D3] 5,000 unit PO DAILY 08/21/18 [History] Furosemide [Lasix] 20 mg PO DAILY 08/21/18 [History] Pioglitazone [Actos] 15 mg PO DAILY 08/21/18 [History] Potassium Chloride [Klor-Con 10] 10 meq PO DAILY 08/21/18 [History] Simvastatin [Zocor] 20 mg PO HS 08/21/18 [History] amLODIPine [Norvasc] 10 mg PO DAILY 08/21/18 [History] metFORMIN HCL 500 mg PO DAILY 08/21/18 [History] Acetaminophen-Codeine 300-30mg [Tylenol w/codeine #3] 1 tab PO Q4-6H PRN 03/28/19 [History] Diclofenac Sodium [Voltaren] 75 mg PO BID PRN 03/28/19 [History] Ibuprofen [Motrin] 600 mg PO Q8HR PRN 03/28/19 [History] Levonorgestrel [Mirena] 1 each IY DIRECTED 03/28/19 [History] Vitamin B1 (Unknown Dose) 1 tab PO DAILY 03/28/19 [History] Bisacodyl [Dulcolax] 5 mg PO DAILY PRN #10 tablet. 08/06/19 [Rx] Omeprazole 40 mg PO DAILY #30 cap 08/06/19 [Rx] Ondansetron Odt [Zofran Odt] 4 mg PO Q8HR PRN #9 tab 08/06/19 [Rx] Simethicone 40 mg/0.6 ml Drops [Mylicon Drops] 40 mg PO PCHS PRN #30 ml 08/06/19 [Rx] Follow up Appointment(s)/Referral(s): Kathy Carmona MD [Primary Care Provider] - 1 Week (Office will call patient with follow-up date and time.) [facility] [place] [place] - 1 Week
--- NOTE | 2019-08-10 09:48 | P.PN ---
Subjective Progress Note Date: 08/09/19 Patient blood pressure is well-controlled patient is tolerating by mouth liquid diet no overnight events. 08/08/2019 no overnight events patient is tolerating a liquid diet as passing gas did not move her bowel yet. 08/09/2019 No overnight events patient is clinically doing well and tolerating diet well and patient will be discharged today Constitutional: Denied any fatigue denied any fever. Cardio vascular: denied any chest pain, palpitations Gastrointestinal denied any nausea vomiting Pulmonary: Denied any shortness of breath cough Neurologic denied any new focal deficits All inpatient medications were reviewed and appropriate changes in these medications as dictated in the interval history and assessment and plan. Objective - Vital Signs Vital signs: Vital Signs Temp 97.8 F 08/09/19 07:00 Pulse 68 08/09/19 11:26 Resp 18 08/09/19 07:00 BP 133/77 08/09/19 07:00 Pulse Ox 99 08/09/19 01:47 Intake & Output 08/09/19 08/10/19 08/10/19 18:59 06:59 18:59 Other: # Voids 3 - Exam PHYSICAL EXAMINATION: GENERAL: The patient is alert and oriented x3, not in any acute distress. Obese HEENT: Pupils are round and equally reacting to light. EOMI. No scleral icterus. No conjunctival pallor. Normocephalic, atraumatic. No pharyngeal erythema. No t hyromegaly. CARDIOVASCULAR: S1 and S2 present. No murmurs, rubs, or gallops. PULMONARY: Chest is clear to auscultation, no wheezing or crackles. ABDOMEN: Soft, nontender, nondistended, normoactive bowel sounds. No palpable organomegaly. MUSCULOSKELETAL: No joint swelling or deformity. EXTREMITIES: No cyanosis, clubbing, or pedal edema. NEUROLOGICAL: Gross neurological examination did not reveal any focal deficits. SKIN: No rashes. - Labs CBC & Chem 7: 08/08/19 07:58 08/06/19 10:56 Labs: Abnormal Lab Results - Last 24 Hours (Table) 08/09/19 Range/Units 11:27 POC Glucose (mg/dL) 127 H (75-99) mg/dL Assessment and Plan Plan: Status post laparoscopic sleeve gastrectomy postoperative day day 3 and patient is tolerating diet well and will be discharged today -Hypertension patient will resume her home antidepressive medications. -Type 2 diabetes mellitus anticoagulation will be resumed on oral hypoglycemic agents may not require much of these medications down the line when she loses weight. -Gastroesophageal reflux disease -Hyperlipidemia
== END 2019-08-09 13:24 | disposition home or self-care (01) | DRG 621 ==
LOC: 2ORMAIN 11:04 → EDSTATUS 12:30 → 4SSUR 15:21
PROVIDERS: ADMIT Surgery; ATTEND Surgery
PROC: 0DB64Z3 Excision of Stomach, Percutaneous Endoscopic Approach, Vertical (ICD-10-PCS; principal; 2019-08-04 12:30)
DX: E66.01 Morbid (severe) obesity due to excess calories (principal); Z68.41 Body mass index [BMI] 40.0-44.9, adult; E11.9 Type 2 diabetes mellitus without complications; E78.00 Pure hypercholesterolemia, unspecified; E78.5 Hyperlipidemia, unspecified; I10 Essential (primary) hypertension; K21.9 Gastro-esophageal reflux disease without esophagitis; R13.10 Dysphagia, unspecified; R05 Cough; R60.9 Edema, unspecified; R11.0 Nausea; Z79.84 Long term (current) use of oral hypoglycemic drugs; Z79.899 Other long term (current) drug therapy; Z88.5 Allergy status to narcotic agent; Z88.8 Allergy status to other drugs, medicaments and biological substances; Z91.048 Other nonmedicinal substance allergy status; Z80.42 Family history of malignant neoplasm of prostate; Z83.3 Family history of diabetes mellitus; Z82.49 Family history of ischemic heart disease and other diseases of the circulatory system
CPT/HCPCS: 74240; 80048; 80051; 82310; 82565; 83735; 84100; 84520; 85025; 88307; 88342; 94640; 94760; 94762

== ENCOUNTER → 2019-08-14 | Outpatient (CLI) | payer BC ==
[2019-08-14 12:37] VITALS: BP 105/63; PULSE 93; TEMP 98.4; BMI 41.9
== END | disposition home or self-care (01) ==
LOC: BARWHC3 10:46
PROVIDERS: ATTEND Surgery
DX: E66.01 Morbid (severe) obesity due to excess calories (principal); Z98.84 Bariatric surgery status; Z68.41 Body mass index [BMI] 40.0-44.9, adult
CPT/HCPCS: 99211

== ENCOUNTER → 2019-08-15 | Outpatient (CLI) | payer BC ==
[~2019-08-15] MED LIST changes: -DEXAMETHASONE SOD PHOSPHATE 10 MG/ML 1 ML VIAL IV ONE; -ENOXAPARIN 40 MG/0.4 ML SYRINGE SQ ONE; -LIDOCAINE 1% 20 ML VIAL (10MG/ML) FOR IV START INTRADERMA PRN; -ONDANSETRON 4 MG/2 ML VIAL IVP ONE; -SCOPOLAMINE 1.5MG/72HR PATCH TRANSDERM ONE; +SODIUM CHLORIDE 0.9% 500 ML 500 ML in EMPTY BAG 1 BAG IV PRN; -ceFAZolin 3 GM in SODIUM CHLORIDE 0.9% 100 ML IVPB ONE
[2019-08-15 08:41] VITALS: BP 114/73; PULSE 62; RESP 18; TEMP 98
[2019-08-15] MEDS: SODIUM CHLORIDE 0.9% 1,000 ML IV NR ×2 (08:43→09:56)
== END | disposition home or self-care (01) ==
LOC: PROCWHC3 08:09
PROVIDERS: ATTEND Surgery
DX: E86.0 Dehydration (principal)
CPT/HCPCS: 96360; 96361

== ENCOUNTER → 2019-08-21 | Outpatient (CLI) | payer BC ==
[2019-08-21 13:17] VITALS: BMI 40.6
[2019-08-21 13:41] VITALS: BP 118/76; PULSE 67; TEMP 98.4
== END | disposition home or self-care (01) ==
LOC: BARWHC3 11:00
PROVIDERS: ATTEND Surgery
DX: E66.01 Morbid (severe) obesity due to excess calories (principal); Z68.41 Body mass index [BMI] 40.0-44.9, adult; Z98.84 Bariatric surgery status
CPT/HCPCS: 97802; 99211

== ENCOUNTER → 2019-08-26 | Outpatient (CLI) | payer BC ==
--- NOTE | 2019-08-26 16:43 | P.BASOAP ---
Subjective Progress Note Date: 08/26/19 Principal diagnosis: Morbid obesity Patient returns after recent sleeve gastrectomy. Has had some dysphagia issues. Mild odynophagia as well times although improving. She did require postop fluid hydration once on 08/14. Currently drinking 30-40 ounces of liquids daily. 30-50 g of protein daily. She believes all those numbers are trending upward. Today she was able to tolerate a and TUNA. Denies pain. Heart rate today 101. Denies tachycardia and states she checks her blood pressure at home. Just stopped taking her amlodipine yesterday. She has had significant weight loss. Denies fever. No heartburn. Taking her antiacids. Objective - Exam Abdomen: Soft, nondistended, nontender, incisions clean and dry Assessment/Plan (1) Morbid obesity Narrative/Plan: Patient overall doing fairly well at this time. Continue encouraging oral liquids and protein intake. We'll plan follow-up 1 week. Check one month labs at that time. Plan: Date: Initial Weight: 129.727 kg Initial BMI: Current Weight: Current BMI: Type of Surgery: Total Volume in Band: Previous Volume: Volume Removed: Volume Added: Band Size:
== END | disposition home or self-care (01) ==
LOC: PROCWHC3 13:00
PROVIDERS: ATTEND Surgery
DX: Z53.9 Procedure and treatment not carried out, unspecified reason (principal)

== ENCOUNTER → 2019-08-26 | Outpatient (CLI) | payer BC ==
[2019-08-26 14:03] VITALS: BP 126/83; PULSE 101; RESP 16; TEMP 97.8; BMI 40.5
== END | disposition home or self-care (01) ==
LOC: BARWHC3 13:42
PROVIDERS: ATTEND Surgery
DX: E11.9 Type 2 diabetes mellitus without complications (principal); I10 Essential (primary) hypertension; E78.00 Pure hypercholesterolemia, unspecified; F41.9 Anxiety disorder, unspecified; Z79.84 Long term (current) use of oral hypoglycemic drugs; Z79.891 Long term (current) use of opiate analgesic; Z79.1 Long term (current) use of non-steroidal anti-inflammatories (NSAID); Z79.899 Other long term (current) drug therapy
CPT/HCPCS: 99211

== ENCOUNTER → 2019-09-02 | Outpatient (CLI) | payer BC ==
[2019-09-02 13:49] VITALS: BP 122/77; PULSE 77; RESP 16; TEMP 98.1; BMI 40.0
--- NOTE | 2019-09-02 14:24 | P.BASOAP ---
Subjective Progress Note Date: 09/02/19 Principal diagnosis: Morbid obesity Patient doing well today. Better liquid and protein intake. Feels much better after stopping her antihypertensives. She has lost 3 pounds over the last 1 week. Denies any significant pain. Objective - Vital Signs Vital signs: Vital Signs Temp 98.1 F 09/02/19 13:47 Pulse 77 09/02/19 13:47 Resp 16 09/02/19 13:47 BP 122/77 09/02/19 13:47 Pulse Ox Intake & Output 09/01/19 09/02/19 09/02/19 18:59 06:59 18:59 Weight 112.491 kg - Exam Abdomen: Soft, nondistended, incisions clean and dry Assessment/Plan (1) Morbid obesity Narrative/Plan: Patient doing fairly well today. Continue encouraging oral protein and liquid intake. We'll check one month lab work. Continue antiacids. Follow-up 1 month. Plan: Date: 09/02/19 Initial Weight: 129.727 kg Initial BMI: 46.1 Current Weight: 112.491 kg Current BMI: 40.0 Type of Surgery: Total Volume in Band: Previous Volume: Volume Removed: Volume Added: Band Size:
== END | disposition home or self-care (01) ==
LOC: BARWHC3 13:26
PROVIDERS: ATTEND Surgery
DX: E66.01 Morbid (severe) obesity due to excess calories (principal); Z68.41 Body mass index [BMI] 40.0-44.9, adult
CPT/HCPCS: 97803; 99211

== ENCOUNTER → 2019-09-08 | Outpatient (CLI) | payer BC ==
[2019-09-08 14:20] LABS: Anisocytosis Slight; HCT 35.4 % (34.0-46.0); HGB 10.6 gm/dL (11.4-16.0); Hypochromasia Marked; MCHC 29.8 g/dL (31.0-37.0); MCV 70.3 fL (80.0-100.0); Mean Platelet Volume 10.1; Microcytosis Marked; Platelet Count 291 k/uL (150-450); RBC 5.04 m/uL (3.80-5.40); WBC 4.1 k/uL (3.8-10.6)
[2019-09-08 21:47] LABS: ALT 40 U/L (8-44); AST 29 U/L (13-35); African American GFR (CKD) 100.3 (60.0-200.0); Albumin/Globulin Ratio 2.47 (1.60-3.17); Alkaline Phosphatase 99 U/L (41-126); BUN/Creat Ratio 13.75 Ratio (12.00-20.00); Calcium 9.7 mg/dL (8.7-10.3); Carbon Dioxide 25.6 mmol/L (21.6-31.8); Chloride 106 mmol/L (96-109); Globulin 1.7 g/dL (1.6-3.3); Glucose 117 mg/dL (70-110); Iron 47 ug/dL (50-170); Non-African American GFR(CKD) 86.6 (60.0-200.0); Potassium 3.5 mmol/L (3.5-5.5); Sodium 144 mmol/L (135-145); Total Bilirubin 0.8 mg/dL (0.2-1.2); Total Protein 5.9 g/dL (6.2-8.2)
[2019-09-08 21:58] LABS: Folate, Serum >24.0 ng/mL
[2019-09-08 22:46] LABS: Hemoglobin A1C 6.4 % (4.0-6.0)
== END | disposition home or self-care (01) ==
LOC: LABWHC1 13:30
PROVIDERS: ATTEND Surgery
DX: K90.89 Other intestinal malabsorption (principal); E55.9 Vitamin D deficiency, unspecified; E66.01 Morbid (severe) obesity due to excess calories
CPT/HCPCS: 36415; 80053; 82306; 82607; 82746; 83036; 83540; 84425; 85027

== ENCOUNTER → 2019-09-15 | Outpatient (CLI) | payer BC ==
[2019-09-15 12:20] LABS: African American GFR (CKD) >90 (>60 ml/min/1.73 sqM); Blood Urea Nitrogen 9 mg/dL (7-17); Non-African American GFR(CKD) >90 (>60 ml/min/1.73 sqM)
--- NOTE | 2019-09-15 13:43 | CT ---
EXAMINATION TYPE: CT abdomen pelvis w con DATE OF EXAM: 09/15/2019 HISTORY: Pelvic pain with diarrhea. Diverticulitis per order. CT DLP: 1873.1mGycm Automated Exposure Control for Dose Reduction was Utilized. CONTRAST: CT scan of the abdomen and pelvis is performed with IV Contrast, patient injected with 100 mL of Isov ue M300. COMPARISON: None. FINDINGS: LUNG BASES: No significant abnormality is appreciated. LIVER/GB: There is anterior left hepatic lobe hypodense lesion abutting the fissure image 26 measurin g 3.3 x 1.4 cm with central linear hyperdense component. Liver is background hypodense relative to sp joshua suggesting diffuse fatty infiltration. There is central 1.4 cm simple appearing thin-walled cyst axial image 15. PANCREAS: No significant abnormality is seen. SPLEEN: No significant abnormality is seen. ADRENALS: No significant abnormality is seen. KIDNEYS: Symmetric cortical medullary uptake and excretion without hydronephrosis seen bilaterally. P oorly distended bladder. BOWEL: Oral contrast does not reach level of terminal ileum making evaluation of distal bowel subopti mal. There is a mild/moderate wall thickening throughout the colon are noted. No significant divertic ular disease. Surgical changes from gastric sleeve procedure noted in the epigastric region. UTERUS/ADNEXA: Anteverted uterus with lobulation and enlargement and areas of calcification, underlyi ng fibroids suspected. Large right lower lesion image 77 has mass effect on the bladder. There is exo phytic 2.7 cm fibroid left anterior upper pelvis axial image 62. LYMPH NODES: No greater than 1cm abdominal or pelvic lymph nodes are appreciated. OSSEOUS STRUCTURES: No significant abnormality is seen. OTHER: No significant additional abnormality is seen. IMPRESSION: 1. No CT evidence for diverticulosis or acute diverticulitis. Cannot exclude a mild to moderate uncom plicated multifocal or diffuse colitis versus product of poor distention, correlate clinically. 2. Markedly enlarged lobulated fibroid uterus causing mass effect on adjacent structures including bl adder. 3. Nonspecific 3.3 cm hypodense left anterior liver lesion. Further investigation with multiphase con trast-enhanced liver protocol MRI or CT should be considered to better evaluate and characterize.
== END | disposition home or self-care (01) ==
LOC: RADCTMAIN 11:17
PROVIDERS: ATTEND Surgery
DX: K76.9 Liver disease, unspecified (principal); N85.8 Other specified noninflammatory disorders of uterus; K57.92 Diverticulitis of intestine, part unspecified, without perforation or abscess without bleeding; R10.31 Right lower quadrant pain; R10.32 Left lower quadrant pain; Z88.6 Allergy status to analgesic agent; Z91.09 Other allergy status, other than to drugs and biological substances
CPT/HCPCS: 82565; 84520; 74177; 36415; Q9967 ×2

== ENCOUNTER → 2019-09-30 | Outpatient (CLI) | payer BC ==
[2019-09-30 14:58] VITALS: BP 131/87; PULSE 74; RESP 16; TEMP 98.2; BMI 38.7
--- NOTE | 2019-09-30 16:16 | P.BASOAP ---
Subjective Progress Note Date: 09/30/19 Principal diagnosis: Morbid obesity Patient doing better since last visit. Describes some episodes of dysphagia but no vomiting. Had diarrhea but that is resolved as well. No GERD symptoms. No night cough. Had CAT scan performed showing an enlarged uterus, mild colonic wall thickening, and a 3.3 cm liver lesion. She has an MRI ordered. She has an appointment with gynecology pending. Still with approximately 50-60 g of protein per day. Liquid intake about 40 ounces per day. He is having some increased knee pain recently. Lately her blood sugars of on the lower side and she will discuss with her position stopping her Actos. Objective - Vital Signs Vital signs: Vital Signs Temp 98.2 F 09/30/19 14:56 Pulse 74 09/30/19 14:56 Resp 16 09/30/19 14:56 BP 131/87 09/30/19 14:56 Pulse Ox Intake & Output 09/29/19 09/30/19 09/30/19 18:59 06:59 18:59 Weight 108.862 kg - Exam Abdomen: Soft, nontender, nondistended Assessment/Plan (1) Morbid obesity Narrative/Plan: Patient doing quite well. Continue dietary and exercise regimen. Await MRI liver. Await gynecology evaluation. Continue antiacids for now. Follow-up one month. Plan: Date: 09/30/19 Initial Weight: 129.727 kg Initial BMI: 46.1 Current Weight: 108.862 kg Current BMI: 38.7 Type of Surgery: Total Volume in Band: Previous Volume: Volume Removed: Volume Added: Band Size:
== END | disposition home or self-care (01) ==
LOC: BARWHC3 14:17
PROVIDERS: ATTEND Surgery
DX: E66.01 Morbid (severe) obesity due to excess calories (principal); Z68.38 Body mass index [BMI] 38.0-38.9, adult; R13.10 Dysphagia, unspecified
CPT/HCPCS: 99211

== ENCOUNTER → 2019-10-16 | Outpatient (CLI) | payer BC ==
--- NOTE | 2019-10-16 14:19 | MR ---
EXAMINATION TYPE: MR abdomen wo/w con DATE OF EXAM: 10/16/2019 COMPARISON: CT abdomen and pelvis September 15, 2019 HISTORY: Liver mass, prior abnormal CT CONTRAST: Standard multiplanar, multisequence MRI departmental protocol utilizing 10 mL intravenous Gadavist ga dolinium contrast. Imaging is performed of the abdomen focusing on the liver. FINDINGS: Liver: Liver remains normal in size with mild diffuse signal dropout consistent with mild diffuse fat ty infiltration. Corresponding to CT there are simple appearing thin-walled 1.8 cm cyst centrally in the liver anterior aspect caudate lobe seen best coronal image 20. Corresponding to lesion of concern on recent CT there is lesion of slight T2 hyperintensity and T1 hypointensity that shows more promin ent signal dropout on in and out of phase T1-weighted imaging anteriorly in the left hepatic lobe med ial segment abutting the fissure measuring approximately 2.3 x 1.7 cm x 4 cm craniocaudal dimension t hat has a central area of linear T2 hyperintensity. Some motion artifact degradation is present. Codie alis postcontrast images show some rim-type enhancement along with some linear enhancement centrally w ith the lesion remaining hypointense relative to the remainder of the liver showing no progressive or nodular enhancement. Other: Lung bases are grossly clear, spleen, pancreas, and both adrenal glands are normal in size. N o concerning renal mass or hydronephrosis. No suspicious bowel dilatation. No abdominal ascites or ad enopathy. Osseous structures are intact. IMPRESSION: Confirmation of atypical well-defined oval lesion in the anterior liver abutting the fiss ure. Does not meet typical imaging characteristics of benign or malignant liver lesion. I do strongly suspected benign etiology given the lack of enhancement with central enhancing vessel, would even co nsider focal fatty proliferation given location though is more masslike than typical. I would probabl y advise imaging follow-up in 6-12 months time to ensure stability of lesion as long as alpha-fetopro tein levels are not elevated.
== END | disposition home or self-care (01) ==
LOC: RADMRIMAIN 13:10
PROVIDERS: ATTEND Internal Medicine
DX: K76.0 Fatty (change of) liver, not elsewhere classified (principal); K76.9 Liver disease, unspecified
CPT/HCPCS: 74183; A9585

== ENCOUNTER → 2019-10-28 | Outpatient (CLI) | payer BC ==
[2019-10-28 14:30] VITALS: BP 137/90; PULSE 69; RESP 16; TEMP 98.2; BMI 37.4
--- NOTE | 2019-10-28 15:02 | P.BASOAP ---
Subjective Progress Note Date: 10/28/19 Principal diagnosis: Morbid obesity Patient returns for recheck. Doing better since last visit. Her knee pain is gone. No diarrhea. 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 Had her MRI of the liver in late September. Benign findings suspected. Alpha-fetoprotein and short-term follow-up advised. Has not had her alpha-fetoprotein drawn yet. Remains on Actos. Blood sugars in the 80s. She is due for lab work. Minimal dysphagia symptoms. No pain. Objective - Vital Signs Vital signs: Vital Signs Temp 98.2 F 10/28/19 14:27 Pulse 69 10/28/19 14:27 Resp 16 10/28/19 14:27 BP 137/90 10/28/19 14:27 Pulse Ox Intake & Output 10/27/19 10/28/19 10/28/19 18:59 06:59 18:59 Weight 105.233 kg - Exam Abdomen: Soft, nontender, nondistended Assessment/Plan (1) Morbid obesity Narrative/Plan: Patient doing better at this time. We'll check three-month lab work. Patient will have her alpha-fetoprotein drawn at that time as well. Continue dietary and exercise regimen. Await gynecology visit in December. Follow-up with me 4-6 weeks. Plan: Date: 10/28/19 Initial Weight: 129.727 kg Initial BMI: 46.1 Current Weight: 105.233 kg Current BMI: 37.4 Type of Surgery: Total Volume in Band: Previous Volume: Volume Removed: Volume Added: Band Size:
== END | disposition home or self-care (01) ==
LOC: BARWHC3 13:58
PROVIDERS: ATTEND Surgery
DX: E66.01 Morbid (severe) obesity due to excess calories (principal); Z68.37 Body mass index [BMI] 37.0-37.9, adult; R13.10 Dysphagia, unspecified
CPT/HCPCS: 97803; 99211

== ENCOUNTER → 2019-10-29 | Outpatient (CLI) | payer BC ==
[2019-10-29 17:52] LABS: Anisocytosis Slight; HCT 34.5 % (34.0-46.0); Hypochromasia Marked; MCH 20.6 pg (25.0-35.0); MCHC 29.1 g/dL (31.0-37.0); MCV 70.9 fL (80.0-100.0); Mean Platelet Volume 7.5; Microcytosis Marked; Platelet Count 271 k/uL (150-450); RBC 4.87 m/uL (3.80-5.40); RDW 17.8 % (11.5-15.5); WBC 5.2 k/uL (3.8-10.6)
[2019-10-30 02:18] LABS: % Iron Saturation 11.6 (12.00-45.00); African American GFR (CKD) 117.9 (60.0-200.0); Albumin 4.3 g/dL (3.80-4.90); Albumin/Globulin Ratio 2.15 (1.60-3.17); Anion Gap 12.3 mmol/L (4.00-12.00); BUN/Creat Ratio 17.14 Ratio (12.00-20.00); Calcium 9.9 mg/dL (8.7-10.3); Carbon Dioxide 26.7 mmol/L (21.6-31.8); Non-African American GFR(CKD) 101.7 (60.0-200.0); Potassium 3.9 mmol/L (3.5-5.5); Total Bilirubin 0.6 mg/dL (0.3-1.2); Total Protein 6.3 g/dL (6.2-8.2)
[2019-10-30 02:26] LABS: Folate, Serum 8.4 ng/mL
== END | disposition home or self-care (01) ==
LOC: LABWHC1 15:43
PROVIDERS: ATTEND Surgery
DX: E66.01 Morbid (severe) obesity due to excess calories (principal); K90.89 Other intestinal malabsorption; E55.9 Vitamin D deficiency, unspecified; R16.0 Hepatomegaly, not elsewhere classified
CPT/HCPCS: 36415; 80053; 82105; 82306; 82607; 82746; 83540; 83550; 84425; 85027

== ENCOUNTER → 2020-02-10 | Outpatient (CLI) | payer BC ==
[2020-02-10 13:53] VITALS: BP 132/83; PULSE 65; RESP 16; TEMP 98.3; BMI 35.3
[2020-02-10 15:31] LABS: HCT 38.9 % (34.0-46.0); HGB 11.7 gm/dL (11.4-16.0); Hypochromasia Marked; MCH 21.6 pg (25.0-35.0); MCV 71.9 fL (80.0-100.0); Mean Platelet Volume 7.5; Microcytosis Moderate; Platelet Count 244 k/uL (150-450); RBC 5.41 m/uL (3.80-5.40); RDW 15.7 % (11.5-15.5); WBC 5.6 k/uL (3.8-10.6)
--- NOTE | 2020-02-10 15:54 | P.BASOAP ---
Subjective Progress Note Date: 02/10/20 Principal diagnosis: Morbid obesity Patient returns for reevaluation. Last seen in October. She has lost 14 pounds since then. She is due for 6 month labs. She has been increasing her activity lately. Admits that she was not active during the pandemic. She also has not been using her lymphedema machine much. No reflux while taking her antiacids. He has an upcoming appointment with gynecology again. Objective - Vital Signs Vital signs: Vital Signs Temp 98.3 F 02/10/20 13:51 Pulse 65 02/10/20 13:51 Resp 16 02/10/20 13:51 BP 132/83 02/10/20 13:51 Pulse Ox Intake & Output 02/09/20 02/10/20 02/10/20 18:59 06:59 18:59 Weight 99.337 kg - Exam Abdomen: Soft, nontender, nondistended, small nodule right side of pannus suspect small lipoma or area of fat necrosis - Labs CBC & Chem 7: 02/10/20 14:42 Labs: Abnormal Lab Results - Last 24 Hours (Table) 02/10/20 Range/Units 14:42 RBC 5.41 H (3.80-5.40) m/uL MCV 71.9 L (80.0-100.0) fL MCH 21.6 L (25.0-35.0) pg MCHC 30.0 L (31.0-37.0) g/dL RDW 15.7 H (11.5-15.5) % Assessment/Plan (1) Morbid obesity Narrative/Plan: Patient overall doing fairly well. Check 6 months labs. Return visit 4-6 weeks. Plan: Date: 02/10/20 Initial Weight: 129.727 kg Initial BMI: 46.1 Current Weight: 99.337 kg Current BMI: 35.3 Type of Surgery: Total Volume in Band: Previous Volume: Volume Removed: Volume Added: Band Size:
[2020-02-11 01:50] LABS: African American GFR (CKD) 117.9 (60.0-200.0); Albumin 4.6 g/dL (3.80-4.90); Albumin/Globulin Ratio 2.09 (1.60-3.17); Anion Gap 8.8 mmol/L (4.00-12.00); Calcium 9.5 mg/dL (8.7-10.3); Carbon Dioxide 24.2 mmol/L (21.6-31.8); Globulin 2.2 g/dL (1.6-3.3); Non-African American GFR(CKD) 101.7 (60.0-200.0); Potassium 4.4 mmol/L (3.5-5.5); Total Bilirubin 0.6 mg/dL (0.2-1.2); Total Protein 6.8 g/dL (6.2-8.2)
[2020-02-11 02:29] LABS: Folate, Serum 17.9 ng/mL
== END | disposition home or self-care (01) ==
LOC: BARWHC3 13:34
PROVIDERS: ATTEND Surgery
DX: E66.01 Morbid (severe) obesity due to excess calories (principal); Z68.35 Body mass index [BMI] 35.0-35.9, adult; K90.89 Other intestinal malabsorption; E55.9 Vitamin D deficiency, unspecified
CPT/HCPCS: 80053; 82306; 82607; 82746; 83540; 84425; 85027; 97803; 99211

== ENCOUNTER → 2020-03-30 | Outpatient (CLI) | payer BC ==
[2020-03-30 13:16] VITALS: BP 121/78; PULSE 61; RESP 16; TEMP 98.3; BMI 34.5
--- NOTE | 2020-03-30 13:51 | P.BASOAP ---
Subjective Progress Note Date: 03/30/20 Principal diagnosis: Morbid obesity Patient returns for reevaluation. Had sleeve gastrectomy in July. Last seen in January. Labs done at that time showed a vitamin B1 of 32. She has started vitamin B1 specific supplementation. No heartburn wall taking antiacids. Patient states she is not doing any structured exercise with plans to start that soon. Has an appointment to see gynecology later this month for her irregular menses. Objective - Vital Signs Vital signs: Vital Signs Temp 98.3 F 03/30/20 13:14 Pulse 61 03/30/20 13:14 Resp 16 03/30/20 13:14 BP 121/78 03/30/20 13:14 Pulse Ox Intake & Output 03/29/20 03/30/20 03/30/20 18:59 06:59 18:59 Weight 97.069 kg - Exam Abdomen: Soft, nontender, nondistended Assessment/Plan (1) Morbid obesity Narrative/Plan: Patient doing well at this time. Continue B1 supplementation along with multivitamins. Continue dietary regimen. Increase exercise with structured/scheduled exercise. Follow-up 6 weeks. Plan: Date: 03/30/20 Initial Weight: 129.727 kg Initial BMI: 46.1 Current Weight: 97.069 kg Current BMI: 34.5 Type of Surgery: Total Volume in Band: Previous Volume: Volume Removed: Volume Added: Band Size:
== END | disposition home or self-care (01) ==
LOC: BARWHC3 12:56
PROVIDERS: ATTEND Surgery
DX: Z48.815 Encounter for surgical aftercare following surgery on the digestive system (principal); E66.01 Morbid (severe) obesity due to excess calories; Z68.34 Body mass index [BMI] 34.0-34.9, adult; Z98.84 Bariatric surgery status
CPT/HCPCS: 97803; 99211

== ENCOUNTER → 2020-05-25 | Outpatient (CLI) | payer BC ==
[2020-05-25 13:36] VITALS: BP 149/88; PULSE 68; RESP 16; TEMP 98; BMI 34.7
--- NOTE | 2020-05-25 16:12 | P.BASOAP ---
Subjective Progress Note Date: 05/25/20 Principal diagnosis: Morbid obesity Patient returns for reevaluation. Last seen 03/30. She has gained 1 pound. She never really started an exercise routine after work resumed. Continuing to take vitamin D supplementation. Patient does have history of lower extremity lymphedema. She is wearing her support hose usually. Objective - Vital Signs Vital signs: Vital Signs Temp 98 F 05/25/20 13:33 Pulse 68 05/25/20 13:33 Resp 16 05/25/20 13:33 BP 149/88 05/25/20 13:33 Pulse Ox Intake & Output 05/24/20 05/25/20 05/25/20 18:59 06:59 18:59 Weight 97.522 kg - Exam Abdomen: Soft, nontender, nondistended Assessment/Plan (1) Morbid obesity Narrative/Plan: Overall patient doing fairly well. She will start exercising more. She has a treadmill coming this weekend. We'll plan follow-up this July. Check one year labs at that time. Plan: Date: 05/25/20 Initial Weight: 129.727 kg Initial BMI: 46.1 Current Weight: 97.522 kg Current BMI: 34.7 Type of Surgery: Total Volume in Band: Previous Volume: Volume Removed: Volume Added: Band Size:
== END | disposition home or self-care (01) ==
LOC: BARWHC3 13:07
PROVIDERS: ATTEND Surgery
DX: E66.01 Morbid (severe) obesity due to excess calories (principal); Z68.34 Body mass index [BMI] 34.0-34.9, adult
CPT/HCPCS: 99211

== ENCOUNTER → 2020-08-31 | Outpatient (CLI) | payer BC ==
[2020-08-31 13:19] VITALS: BP 131/87; PULSE 62; RESP 16; TEMP 98.6; BMI 35.0
--- NOTE | 2020-08-31 15:22 | P.BASOAP ---
Subjective Progress Note Date: 08/31/20 Principal diagnosis: Morbid obesity patient returns for recheck. Last seen in May. Still having issues with leg swelling. Her leg swelling has actually gotten worse because she has been standing more at work lately. 2 pound weight gain since last visit. She is due for lab work. Patient admits she has not been exercising. Objective - Vital Signs Vital signs: Vital Signs Temp 98.6 F 08/31/20 13:16 Pulse 62 08/31/20 13:16 Resp 16 08/31/20 13:16 BP 131/87 08/31/20 13:16 Pulse Ox Intake & Output 08/30/20 08/31/20 08/31/20 18:59 06:59 18:59 Weight 98.43 kg - Exam Abdomen: Soft, nontender, nondistended Assessment/Plan (1) Morbid obesity Narrative/Plan: Patient doing well at this time. States she will start using her treadmill over the winter. We'll check one year labs at this time. Follow-up 3 months. We also discussed her previous abnormal liver findings. Last MRI performed in September 2019. 6-12 month follow-up was advised. We'll discuss with her primary care and see if this follow-up study can be reordered. Plan: Date: 08/31/20 Initial Weight: 129.727 kg Initial BMI: 46.1 Current Weight: 98.43 kg Current BMI: 35.0 Type of Surgery: Total Volume in Band: Previous Volume: Volume Removed: Volume Added: Band Size:
== END | disposition home or self-care (01) ==
LOC: BARWHC3 12:46
PROVIDERS: ATTEND Surgery
DX: E66.01 Morbid (severe) obesity due to excess calories (principal); Z68.35 Body mass index [BMI] 35.0-35.9, adult; Z71.3 Dietary counseling and surveillance
CPT/HCPCS: 97803; 99211

== ENCOUNTER → 2020-09-24 | Outpatient (CLI) | payer BC ==
[2020-09-24 20:16] LABS: HCT 36.7 % (37.2-46.3); HGB 10.9 g/dL (12.0-15.0); MCH 20.9 pg (27.0-32.0); MCHC 29.7 g/dL (32.0-37.0); MCV 70.4 fL (80.0-97.0); Platelet Count 235 X 10*3/uL (140-440); RBC 5.21 X 10*6/uL (4.10-5.20); RDW 16.2 % (11.5-14.5); WBC 5.81 X 10*3/uL (4.50-10.00)
[2020-09-25 00:15] LABS: African American GFR (CKD) 86.4 (60.0-200.0); Albumin 4.5 g/dL (3.80-4.90); Albumin/Globulin Ratio 2.37 (1.60-3.17); Anion Gap 10.5 mmol/L (4.00-12.00); BUN/Creat Ratio 22.22 Ratio (12.00-20.00); Calcium 9.2 mg/dL (8.7-10.3); Carbon Dioxide 24.5 mmol/L (21.6-31.8); Globulin 1.9 g/dL (1.6-3.3); Non-African American GFR(CKD) 74.6 (60.0-200.0); Potassium 4.2 mmol/L (3.5-5.5); Total Bilirubin 0.4 mg/dL (0.2-1.2); Total Protein 6.4 g/dL (6.2-8.2)
[2020-09-25 00:23] LABS: Folate, Serum 8.4 ng/mL
== END | disposition home or self-care (01) ==
LOC: LABWHC1 14:08
PROVIDERS: ATTEND Surgery
DX: E55.9 Vitamin D deficiency, unspecified (principal); E66.01 Morbid (severe) obesity due to excess calories; K90.89 Other intestinal malabsorption
CPT/HCPCS: 36415; 80053; 82306; 82607; 82746; 84425; 85027

== ENCOUNTER → 2020-09-24 | Outpatient (CLI) | payer BC ==
--- NOTE | 2020-09-25 03:33 | MR ---
EXAMINATION TYPE: MR abdomen wo/w con DATE OF EXAM: 09/24/2020 COMPARISON: 10/16/2019 HISTORY: Hepatomegaly, follow up from previous MRI. CONTRAST: Standard multiplanar, multisequence MRI departmental protocol utilizing 10 mL intravenous Gadavist ga dolinium contrast. There is 1.8 cm rounded fluid signal lesion in the caudate lobe of the liver consistent with a simple cyst. The bile ducts are not dilated. Common bile duct appears normal. Pancreatic duct appears marybel l. Spleen is intact. There is no evidence of pancreatic mass. Kidneys have normal size and contour. There is no hydronephr osis. There is no adrenal mass. The stomach is intact. There is no evidence of pleural effusion. There is no ascites. There is no sign of pericardial effusion. Heart is probably enlarged. Contrast images show no pathologic enhancement. Liver is normal in size and measures 19 cm in length. There is normal enhancement of the portal venou s system. IMPRESSION: Simple cyst in the caudate lobe of the liver near the ritu hepatis or slightly increased. No evidence of any abnormality near the falciform ligament in the anterior right lobe of the liver th at is suggested by the old CT scan of 09/15/2019. Unchanged
== END | disposition home or self-care (01) ==
LOC: RADMRIMAIN 14:37
PROVIDERS: ATTEND Internal Medicine
DX: K76.89 Other specified diseases of liver (principal)
CPT/HCPCS: 74183; A9585

== ENCOUNTER → 2021-02-01 | Outpatient (CLI) | payer BC ==
[2021-02-01 13:16] VITALS: BP 137/85; PULSE 91; RESP 16; TEMP 98.5; BMI 39.2
--- NOTE | 2021-02-01 21:20 | P.BASOAP ---
Subjective Progress Note Date: 02/01/21 Principal diagnosis: Morbid obesity Patient returns for bariatric follow-up. She was last seen in August. Since that time she had her liver MRI which showed no pathologic abnormalities. Still not exercising much. Weight has increased since last visit. She usually skips breakfast. Having more significant leg swelling. She is not wearing her lymphedema machine or stockings. States she will be seeing her primary care for possible diuretics. Objective - Vital Signs Vital signs: Vital Signs Temp 98.5 F 02/01/21 13:15 Pulse 91 02/01/21 13:15 Resp 16 02/01/21 13:15 BP 137/85 02/01/21 13:15 Pulse Ox Intake & Output 02/01/21 02/01/21 02/02/21 06:59 18:59 06:59 Weight 110.223 kg - Exam Abdomen: Soft, nontender, nondistended Assessment/Plan (1) Morbid obesity Narrative/Plan: Patient doing well at this time. Unfortunately weight has gone up somewhat. Patient states she will refocus now that she is off school for the summer. I do believe much of her weight gain is related to her leg swelling. Her lower showing edema seems worse than last visit. She will follow up her primary care physician to discuss possible diuretics. She will follow up with me in 3 months and will see dietitian at that time. Plan: Date: 02/01/21 Initial Weight: 129.727 kg Initial BMI: 46.1 Current Weight: 110.223 kg Current BMI: 39.2 Type of Surgery: Total Volume in Band: Previous Volume: Volume Removed: Volume Added: Band Size:
== END ==
LOC: BARWHC3 13:01
PROVIDERS: ATTEND Surgery
DX: E66.01 Morbid (severe) obesity due to excess calories (principal); Z68.39 Body mass index [BMI] 39.0-39.9, adult; Z88.5 Allergy status to narcotic agent; Z91.048 Other nonmedicinal substance allergy status; Z88.8 Allergy status to other drugs, medicaments and biological substances
CPT/HCPCS: 99211

== ENCOUNTER 2021-07-12 07:30 | Day surgery (SDC) | payer BC ==
[2021-07-08 13:47] VITALS: BMI 34.3
[~2021-07-12 07:30] MED LIST changes: +LIDOCAINE 1% (10MG/ML) FOR IV START INTRADERMA PRN; -SODIUM CHLORIDE 0.9% 500 ML 500 ML in EMPTY BAG 1 BAG IV PRN
[2021-07-12 07:59] VITALS: RESP 16; TEMP 96.3
[2021-07-12] MEDS: LACTATED RINGERS 1,000 ML IV SCH ×2 (08:01→08:06)
[2021-07-12] MEDS ORDERED: PROPOFOL 10 MG/ML 20 ML VIAL IV ONE (08:07)
[2021-07-12] MEDS ORDERED: LIDOCAINE 1% INJ 10MG/ML (20 ML MDV) ONE (08:07)
--- NOTE | 2021-07-12 08:11 | P.GSHP ---
History of Present Illness H&P Date: 07/12/21 Chief Complaint: Colon cancer screening 50-year-old female here today for screening colonoscopy. She has not had 1 previously. No bowel complaints. No family history of colon cancer. Past Medical History Past Medical History: Diabetes Mellitus, GERD/Reflux, Hyperlipidemia, Hypertension, Skin Disorder Additional Past Medical History / Comment(s): anemia "I have low Iron." Seasonal allergies, poor venous circulation, has dependent edema (uses a pneumatic compression device machine at home). occasional boils in bilateral axillas. 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 sleeve gastrectomy - Past Anesthesia/Blood Transfusion Reactions: Motion Sickness, Postoperative Nausea & Vomiting (PONV) Additional Past Anesthesia/Blood Transfusion Reaction / Comment(s): PONV after bariatric surgery Smoking Status: Never smoker - Past Family History Father Family Medical History: Cancer Mother Additional Family Medical History / Comment(s): at age 57 from brain aneurysm. Sister(s) Family Medical History: Diabetes Mellitus Additional Family Medical History / Comment(s): Sisters (X2) with DM. Medications and Allergies Home Medications Medication Instructions Recorded Confirmed Type Cetirizine HCl [Zyrtec] 10 mg PO DAILY 08/21/18 07/12/21 History Acetaminophen-Codeine 300-30mg 1 tab PO Q4-6H PRN 03/28/19 07/12/21 History [Tylenol w/codeine #3] Multivitamins, Thera [Multivitamin 1 tab PO DAILY 03/30/20 07/12/21 History (formulary)] Omeprazole 40 mg PO DAILY PRN 07/08/21 07/12/21 History levonorgestreL [Mirena] 1 each IY DIRECTED 07/08/21 07/12/21 History Allergies Allergy/AdvReac Type Severity Reaction Status Date / Time MARY Inhibitors Allergy Swelling Verified 07/08/21 13:38 adhesive tape Allergy Rash/Hives Verified 07/08/21 13:38 tramadol AdvReac Vomiting Verified 07/08/21 13:38 Surgical - Exam Vital Signs Temp Pulse Resp BP Pulse Ox 96.3 F L 71 16 144/82 100 07/12/21 07:57 07/12/21 07:57 07/12/21 07:57 07/12/21 07:57 07/12/21 07:57 Physical exam: General: Well-developed, well-nourished HEENT: Normocephalic, sclerae nonicteric Abdomen: Nontender, nondistended Extremities: No edema Neuro: Alert and oriented Assessment and Plan (1) Colon cancer screening Narrative/Plan: Will proceed with colonoscopy at this time Current Visit: Yes Status: Acute Code(s): Z12.11 - ENCOUNTER FOR SCREENING FOR MALIGNANT NEOPLASM OF COLON SNOMED Code(s): 041584687
--- NOTE | 2021-07-12 08:27 | P.PCN ---
Date of Procedure: 07/12/21 Procedure(s) Performed: PREOPERATIVE DIAGNOSIS: Colon cancer screening POSTOPERATIVE DIAGNOSIS: Normal exam PROCEDURE: Colonoscopy ANESTHESIA: MAC SURGEON: Karthik Patton M.D. SPECIMENS: None ENDOSCOPIC PROCEDURE: The patient was placed on the endoscopy table in the left decubitus position. The Olympus colonoscope was inserted into the anus and passed under direct visualization to the base of the cecum. The appendiceal orifice was visualized. From that point the scope was slowly withdrawn inspecti ng all surfaces carefully. There were no neoplastic inflammatory or polypoid lesions throughout the cecum, ascending, transverse, descending, sigmoid and rectum. There was no visible diverticulosis noted. Digital rectal examination was normal. The patient was taken to the recovery room in stable condition per anesthesia guidelines. RECOMMENDATIONS: Resume diet. Follow-up colonoscopy 10 years.
[2021-07-12 08:49] VITALS: BP 131/86; PULSE 64
[2021-07-12] MEDS ORDERED: ACETAMINOPHEN TAB 325 MG TAB ONE (09:09)
== END 2021-07-12 09:24 | disposition home or self-care (01) ==
LOC: ORWHC2ENDO 07:30
PROVIDERS: ATTEND Surgery
DX: Z12.11 Encounter for screening for malignant neoplasm of colon (principal); E11.9 Type 2 diabetes mellitus without complications; K21.9 Gastro-esophageal reflux disease without esophagitis; E78.5 Hyperlipidemia, unspecified; I10 Essential (primary) hypertension; L98.9 Disorder of the skin and subcutaneous tissue, unspecified; R60.9 Edema, unspecified; G43.909 Migraine, unspecified, not intractable, without status migrainosus; Z98.84 Bariatric surgery status; Z79.899 Other long term (current) drug therapy; Z79.3 Long term (current) use of hormonal contraceptives; Z88.8 Allergy status to other drugs, medicaments and biological substances; Z91.09 Other allergy status, other than to drugs and biological substances; Z98.890 Other specified postprocedural states; Z80.9 Family history of malignant neoplasm, unspecified; Z82.49 Family history of ischemic heart disease and other diseases of the circulatory system; Z83.3 Family history of diabetes mellitus
CPT/HCPCS: 81025; J2001; J2704; G0121

== ENCOUNTER → 2021-12-13 | Outpatient (CLI) | payer BC ==
[2021-12-13 15:01] VITALS: BP 156/99; PULSE 90; RESP 16; TEMP 98; BMI 38.9
--- NOTE | 2021-12-13 17:38 | P.BASOAP ---
Subjective Progress Note Date: 12/13/21 Principal diagnosis: Morbid obesity Patient returns for reevaluation. Last seen last January. Has gained a few pounds since her last visit. Says she is retaining a large volume of fluid. Says she takes hydrochlorothiazide on an as-needed basis but ran out. Only has mild reflux symptoms. Takes antiacids when necessary. Complaining of a slightly tender mass in the right flank. Objective - Vital Signs Vital signs: Vital Signs Temp 98 F 12/13/21 14:59 Pulse 90 12/13/21 14:59 Resp 16 12/13/21 14:59 BP 156/99 12/13/21 14:59 Pulse Ox Intake & Output 12/12/21 12/13/21 12/13/21 18:59 06:59 18:59 Weight 109.316 kg - Exam Abdomen: Soft, nontender, nondistended, right flank with 2 x 3 cm lipoma mildly tender Assessment/Plan (1) Morbid obesity Narrative/Plan: Patient doing fairly well. She has had some weight gain recently. She believes is related to fluid retention. She will be discussing with her primary care physician resuming her diuretics. Patient says she will start a food journal at this time. She will see me in the office for lipoma removal. Follow-up here in the bariatric center in 6 months. Check labs at that time. Plan: Date: 12/13/21 Initial Weight: 129.727 kg Initial BMI: 46.1 Current Weight: 109.316 kg Current BMI: 38.9 Type of Surgery: Vertical Sleeve Gastrectomy Total Volume in Band: Previous Volume: Volume Removed: Volume Added: Band Size:
== END | disposition home or self-care (01) ==
LOC: BARWHC3 14:30
PROVIDERS: ATTEND Surgery
DX: E66.01 Morbid (severe) obesity due to excess calories (principal); Z68.38 Body mass index [BMI] 38.0-38.9, adult
CPT/HCPCS: 99211

== ENCOUNTER 2022-03-20 13:01 | Emergency (ER) | payer BC ==
[2022-03-20 13:29] VITALS: TEMP 97.9
[2022-03-20 14:52] LABS: Anisocytosis Slight; Basophils # (A) 0.1 k/uL (0-0.2); Basophils % (A) 1 %; Eosinophils # (A) 0.3 k/uL (0-0.7); Eosinophils % (A) 5 %; HCT 36.8 % (34.0-46.0); HGB 10.7 gm/dL (11.4-16.0); Hypochromasia Marked; Lymphocytes # (A) 2.3 k/uL (1.0-4.8); Lymphocytes % (A) 43 %; MCH 20.1 pg (25.0-35.0); MCHC 29.1 g/dL (31.0-37.0); MCV 69.2 fL (80.0-100.0); Mean Platelet Volume 8.6; Microcytosis Marked; Monocytes # (A) 0.3 k/uL (0-1.0); Monocytes % (A) 5 %; Neutrophils # (A) 2.3 k/uL (1.3-7.7); Neutrophils % (A) 44 %; Platelet Count 291 k/uL (150-450); RBC 5.31 m/uL (3.80-5.40); RDW 16.5 % (11.5-15.5); WBC 5.3 k/uL (3.8-10.6)
--- NOTE | 2022-03-20 15:03 | ED ---
General Adult HPI - General Chief complaint: Chest Pain Stated complaint: rt axillary pain Time Seen by Provider: 03/20/22 13:59 Source: patient, RN notes reviewed, old records reviewed Mode of arrival: ambulatory Limitations: no limitations - History of Present Illness Initial comments: 51-year-old female presenting for evaluation of right-sided upper chest pain. Symptoms have been present for the past several days. She did note that they began with some moderate lifting. Now she has developed chest wall pain on the right and into the right axilla which is worse with deep inspiration. She is sharp in nature. She denies cough or dyspnea at rest. No central chest pain. No fever or chills. - Related Data Home Medications Medication Instructions Recorded Confirmed Cetirizine HCl [Zyrtec] 10 mg PO DAILY 08/21/18 07/12/21 Acetaminophen-Codeine 300-30mg 1 tab PO Q4-6H PRN 03/28/19 07/12/21 [Tylenol w/codeine #3] Multivitamins, Thera [Multivitamin 1 tab PO DAILY 03/30/20 07/12/21 (formulary)] Omeprazole 40 mg PO DAILY PRN 07/08/21 07/12/21 levonorgestreL [Mirena] 1 each IY DIRECTED 07/08/21 07/12/21 Previous Rx's Medication Instructions Recorded Ibuprofen [Motrin] 600 mg PO Q8HR PRN #24 tab 03/20/22 Allergies Allergy/AdvReac Type Severity Reaction Status Date / Time MARY Inhibitors Allergy Swelling Verified 03/20/22 13:29 adhesive tape Allergy Rash/Hives Verified 03/20/22 13:29 tramadol AdvReac Vomiting Verified 03/20/22 13:29 Review of Systems ROS Statement: Those systems with pertinent positive or pertinent negative responses have been documented in the HPI. ROS Other: All systems not noted in ROS Statement are negative. Past Medical History Past Medical History: Diabetes Mellitus, GERD/Reflux, Hyperlipidemia, Hypertension, Skin Disorder Additional Past Medical History / Comment(s): anemia "I have low Iron." Seasonal allergies, poor venous circulation, has dependent edema (uses a pneumatic compression device machine at home). occasional boils in bilateral axillas. 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 sleeve gastrectomy 12-19 Past Anesthesia/Blood Transfusion Reactions: Motion Sickness, Postoperative Nausea & Vomiting (PONV) Additional Past Anesthesia/Blood Transfusion Reaction / Comment(s): PONV after bariatric surgery Past Psychological History: No Psychological Hx Reported Smoking Status: Never smoker Past Alcohol Use History: None Reported Past Drug Use History: None Reported - Past Family History Father Family Medical History: Cancer Mother Additional Family Medical History / Comment(s): at age 57 from brain aneurysm. Sister(s) Family Medical History: Diabetes Mellitus Additional Family Medical History / Comment(s): Sisters (X2) with DM. General Exam Limitations: no limitations General appearance: alert, in no apparent distress Head exam: Present: atraumatic, normocephalic Eye exam: Present: normal appearance, PERRL ENT exam: Present: normal exam Neck exam: Present: normal inspection. Absent: tenderness, meningismus Respiratory exam: Present: normal lung sounds bilaterally. Absent: respiratory distress, wheezes Cardiovascular Exam: Present: regular rate, normal rhythm GI/Abdominal exam: Present: soft. Absent: distended, tenderness, guarding Extremities exam: Present: normal inspection, normal capillary refill. Absent: pedal edema Neurological exam: Present: alert, oriented X3, CN II-XII intact. Absent: motor sensory deficit Psychiatric exam: Present: normal affect, normal mood Skin exam: Present: warm, dry, intact. Absent: cyanosis, diaphoretic Course Vital Signs 03/20/22 13:23 Temperature 97.9 F Pulse Rate 63 Respiratory 18 Rate Blood Pressure 153/71 O2 Sat by Pulse 100 Oximetry EKG Findings - EKG Comments: EKG Findings:: EKG: Sinus bradycardia rate of 56, OK interval 155 QRS duration 92, QTC 432, no ST segment elevation Medical Decision Making - Medical Decision Making 51-year-old female with right upper back and axillary pain. Patient well- appearing with stable vitals. She has no dyspnea. The pain did have a respiratory component worse with inspiration. Did obtain imaging, chest x-ray which is negative for pneumothorax, there is question of a left lower lobe infiltrate or atelectasis. The patient has not had fever or cough, there is no leukocytosis. Patient has a stable chronic anemia. She has normal CMP, negative troponin, negative d-dimer. She does have point tenderness over the rhomboid on the right. She will trial Motrin. Return parameters discussed. - Lab Data Result diagrams: 03/20/22 14:46 03/20/22 14:46 Lab Results 03/20/22 03/20/22 03/20/22 Range/Units 14:46 14:46 14:46 WBC 5.3 (3.8-10.6) k/uL RBC 5.31 (3.80-5.40) m/uL Hgb 10.7 L (11.4-16.0) gm/dL Hct 36.8 (34.0-46.0) % MCV 69.2 L (80.0-100.0) fL MCH 20.1 L (25.0-35.0) pg MCHC 29.1 L (31.0-37.0) g/dL RDW 16.5 H (11.5-15.5) % Plt Count 291 (150-450) k/uL MPV 8.6 Neutrophils % 44 % Lymphocytes % 43 % Monocytes % 5 % Eosinophils % 5 % Basophils % 1 % Neutrophils # 2.3 (1.3-7.7) k/uL Lymphocytes # 2.3 (1.0-4.8) k/uL Monocytes # 0.3 (0-1.0) k/uL Eosinophils # 0.3 (0-0.7) k/uL Basophils # 0.1 (0-0.2) k/uL Hypochromasia Marked Anisocytosis Slight Microcytosis Marked PT 10.1 (9.0-12.0) sec INR 0.9 (<1.2) APTT 22.2 (22.0-30.0) sec D-Dimer 0.53 (<0.60) mg/L FEU Sodium 138 (137-145) mmol/L Potassium 4.5 (3.5-5.1) mmol/L Chloride 104 (98-107) mmol/L Carbon Dioxide 24 (22-30) mmol/L Anion Gap 10 mmol/L BUN 14 (7-17) mg/dL Creatinine 0.74 (0.52-1.04) mg/dL Est GFR (CKD-EPI)AfAm >90 (>60 ml/min/1.73 sqM) Est GFR (CKD-EPI)NonAf >90 (>60 ml/min/1.73 sqM) Glucose 137 H (74-99) mg/dL Calcium 9.5 (8.4-10.2) mg/dL Magnesium 2.0 (1.6-2.3) mg/dL Total Bilirubin 0.7 (0.2-1.3) mg/dL AST 26 (14-36) U/L ALT 16 (4-34) U/L Alkaline Phosphatase 107 (38-126) U/L Troponin I (0.000-0.034) ng/mL Total Protein 7.4 (6.3-8.2) g/dL Albumin 4.5 (3.5-5.0) g/dL Lipase 76 (23-300) U/L 03/20/22 Range/Units 14:46 WBC (3.8-10.6) k/uL RBC (3.80-5.40) m/uL Hgb (11.4-16.0) gm/dL Hct (34.0-46.0) % MCV (80.0-100.0) fL MCH (25.0-35.0) pg MCHC (31.0-37.0) g/dL RDW (11.5-15.5) % Plt Count (150-450) k/uL MPV Neutrophils % % Lymphocytes % % Monocytes % % Eosinophils % % Basophils % % Neutrophils # (1.3-7.7) k/uL Lymphocytes # (1.0-4.8) k/uL Monocytes # (0-1.0) k/uL Eosinophils # (0-0.7) k/uL Basophils # (0-0.2) k/uL Hypochromasia Anisocytosis Microcytosis PT (9.0-12.0) sec INR (<1.2) APTT (22.0-30.0) sec D-Dimer (<0.60) mg/L FEU Sodium (137-145) mmol/L Potassium (3.5-5.1) mmol/L Chloride (98-107) mmol/L Carbon Dioxide (22-30) mmol/L Anion Gap mmol/L BUN (7-17) mg/dL Creatinine (0.52-1.04) mg/dL Est GFR (CKD-EPI)AfAm (>60 ml/min/1.73 sqM) Est GFR (CKD-EPI)NonAf (>60 ml/min/1.73 sqM) Glucose (74-99) mg/dL Calcium (8.4-10.2) mg/dL Magnesium (1.6-2.3) mg/dL Total Bilirubin (0.2-1.3) mg/dL AST (14-36) U/L ALT (4-34) U/L Alkaline Phosphatase (38-126) U/L Troponin I <0.012 (0.000-0.034) ng/mL Total Protein (6.3-8.2) g/dL Albumin (3.5-5.0) g/dL Lipase (23-300) U/L Disposition Clinical Impression: Atypical chest pain Disposition: HOME SELF-CARE Condition: Good Instructions (If sedation given, give patient instructions): Chest Pain (ED), Muscle Strain (ED) Prescriptions: Ibuprofen [Motrin] 600 mg PO Q8HR PRN #24 tab PRN Reason: Pain Is patient prescribed a controlled substance at d/c from ED?: No Referrals: Kathy Carmona MD [Primary Care Provider] - 1-2 days Time of Disposition: 15:35
[2022-03-20 15:04] LABS: ALT 16 U/L (4-34); African American GFR (CKD) >90 (>60 ml/min/1.73 sqM); Albumin 4.5 g/dL (3.5-5.0); Anion Gap 10 mmol/L; Blood Urea Nitrogen 14 mg/dL (7-17); Calcium 9.5 mg/dL (8.4-10.2); Carbon Dioxide 24 mmol/L (22-30); Chloride 104 mmol/L (98-107); Glucose 137 mg/dL (74-99); Lipase 76 U/L (23-300); Non-African American GFR(CKD) >90 (>60 ml/min/1.73 sqM); Sodium 138 mmol/L (137-145); Total Bilirubin 0.7 mg/dL (0.2-1.3); Total Protein 7.4 g/dL (6.3-8.2)
[2022-03-20 15:10] LABS: INR 0.9 (<1.2); Partial Thromboplastin Time 22.2 sec (22.0-30.0); Prothrombin Time 10.1 sec (9.0-12.0)
--- NOTE | 2022-03-20 15:10 | XR ---
EXAMINATION TYPE: XR chest 2V DATE OF EXAM: 03/20/2022 COMPARISON: CT abdomen and pelvis September 15 HISTORY: Chest pain. TECHNIQUE: Frontal and lateral views of the chest are obtained. FINDINGS: There is suspicious left lower lobe opacity. Right lung remains clear. The cardiac silhou ette size is within normal limits. The osseous structures are intact. Linear opacity epigastric reg ion on 2 views could reflect surgical clip, correlates with gastric sleeve changes on prior CT abdome n and pelvis study. IMPRESSION: Left lower lobe acute infiltrate and/or atelectasis.
[2022-03-20 15:13] LABS: AST 26 U/L (14-36); Alkaline Phosphatase 107 U/L (38-126); Potassium 4.5 mmol/L (3.5-5.1)
[2022-03-20] MEDS ORDERED: KETOROLAC 15 MG/ML 1 ML VIAL IVP STA (15:22)
[2022-03-20 16:26] VITALS: BP 151/91; PULSE 51; RESP 15
== END 2022-03-20 16:32 | disposition home or self-care (01) ==
LOC: EC 13:01
DX: R07.89 Other chest pain (principal); E11.9 Type 2 diabetes mellitus without complications; I10 Essential (primary) hypertension; K21.9 Gastro-esophageal reflux disease without esophagitis; Z79.83 Long term (current) use of bisphosphonates; Z88.8 Allergy status to other drugs, medicaments and biological substances; Z91.048 Other nonmedicinal substance allergy status
CPT/HCPCS: 36415; 93005; 85379; 80053; 83690; 83735; 84484; 85025; 85610; 85730; 71046; 99285; 96374; J1885

== ENCOUNTER → 2022-05-30 | Outpatient (CLI) | payer BC ==
--- NOTE | 2022-05-30 13:31 | P.BASOAP ---
Subjective Progress Note Date: 05/30/22 Principal diagnosis: Morbid obesity Patient returns for reevaluation. She was last seen in November. Patient has had some weight gain since then. Patient is just now starting intermittent fasting. She is only taking her diuretics intermittently. She also just started taking swimming lessons recently although has a significant fear of the water. Complains of fatigue. Since her last visit we did remove the lipoma in the right flank. Objective - Exam Abdomen: Soft, nontender, nondistended Assessment/Plan (1) Morbid obesity Narrative/Plan: Patient doing well at this time. Agree with plans for fasting diet to see how that works out for her. Encouraged to continue increasing her visits to the gym particularly of the pool. Continue intermittent antiacid use. Patient would like more frequent follow-ups. Plan follow-up 3 months for recheck. Plan: Date: Initial Weight: 129.727 kg Initial BMI: Current Weight: Current BMI: Type of Surgery: Total Volume in Band: Previous Volume: Volume Removed: Volume Added: Band Size:
[2022-05-30 13:55] VITALS: BP 148/96; PULSE 96; RESP 16; TEMP 98.2; BMI 40.1
== END | disposition home or self-care (01) ==
LOC: BARWHC3 13:09
PROVIDERS: ATTEND Surgery
DX: E66.01 Morbid (severe) obesity due to excess calories (principal)
CPT/HCPCS: 99211

== ENCOUNTER 2023-09-16 18:28 | Observation (INO) | payer BC ==
--- NOTE | 2023-09-16 21:53 | ED ---
Extremity Problem HPI - General Chief complaint: Extremity Problem,Nontraumatic Stated complaint: right leg and foot pain Time Seen by Provider: 09/16/23 21:53 Source: patient Mode of arrival: ambulatory Limitations: no limitations - History of Present Illness Initial comments: 63-year-old female with a past medical history significant for prediabetes and lymphedema presenting to the ED with a chief complaint of leg pain. Patient notes onset of pain of her entire right leg with some swelling as well 3 days ago. Since onset, patient reports worsening of pain and swelling. Patient notes a history of cellulitis and notes that this feels similar to that. Associated chills. Denies history of MRSA. No recent hospitalizations. Denies chest pain or shortness of breath. No other complaints. - Related Data Home Medications Medication Instructions Recorded Confirmed Cetirizine HCl [Zyrtec] 10 mg PO DAILY 08/21/18 06/01/22 Acetaminophen-Codeine 300-30mg 1 tab PO Q4-6H PRN 03/28/19 06/01/22 [Tylenol w/codeine #3] Multivitamins, Thera [Multivitamin 1 tab PO DAILY 03/30/20 06/01/22 (formulary)] Omeprazole 40 mg PO DAILY PRN 07/08/21 06/01/22 levonorgestreL [Mirena] 1 each IY DIRECTED 07/08/21 06/01/22 Allergies Allergy/AdvReac Type Severity Reaction Status Date / Time MARY Inhibitors Allergy Swelling Verified 09/16/23 19:02 adhesive tape Allergy Rash/Hives Verified 09/16/23 19:02 tramadol AdvReac Vomiting Verified 09/16/23 19:02 Review of Systems ROS Statement: Those systems with pertinent positive or pertinent negative responses have been documented in the HPI. ROS Other: All systems not noted in ROS Statement are negative. Past Medical History Past Medical History: Diabetes Mellitus, GERD/Reflux, Hyperlipidemia, Hypertension, Skin Disorder Additional Past Medical History / Comment(s): anemia "I have low Iron." Seasonal allergies, poor venous circulation, has dependent edema (uses a pneumatic compression device machine at home). occasional boils in bilateral axillas. 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 sleeve gastrectomy 12-19 Past Anesthesia/Blood Transfusion Reactions: Motion Sickness, Postoperative Nausea & Vomiting (PONV) Additional Past Anesthesia/Blood Transfusion Reaction / Comment(s): PONV after bariatric surgery Past Psychological History: No Psychological Hx Reported Smoking Status: Never smoker Past Alcohol Use History: None Reported Past Drug Use History: None Reported - Past Family History Mother Additional Family Medical History / Comment(s): at age 57 from brain aneurysm. Father Family Medical History: Cancer Additional Family Medical History / Comment(s): at age 70 from prostate cancer Sister(s) Family Medical History: Diabetes Mellitus Additional Family Medical History / Comment(s): Sisters (X2) with DM. General Exam - General Exam Comments Initial Comments: Visual Physical Exam Vital signs reviewed General: Well-appearing, nontoxic, no acute distress. Head: Normocephalic, atraumatic Eyes: PERRLA, EOMI ENT: Airway patent Chest: Nonlabored breathing Skin: No visual rash, normal skin tone Neuro: Alert and oriented 3 Musculoskeletal: No gross abnormalities Limitations: no limitations General appearance: alert, in no apparent distress Eye exam: Present: normal appearance Neck exam: Present: normal inspection Respiratory exam: Present: normal lung sounds bilaterally Cardiovascular Exam: Present: regular rate, normal rhythm GI/Abdominal exam: Present: soft Extremities exam: Present: other (1-2+ pitting edema of the right lower extremity. Distal to the right knee to the level of the ankle there is warmth circumferential edema, and tenderness to palpation.) Neurological exam: Present: alert, oriented X3 Skin exam: Present: warm, dry Course Vital Signs 09/16/23 09/16/23 09/16/23 18:58 22:01 23:00 Temperature 98.0 F Pulse Rate 92 90 88 Respiratory 18 22 18 Rate Blood Pressure 173/68 145/88 137/85 O2 Sat by Pulse 100 97 99 Oximetry Medical Decision Making - Medical Decision Making Was pt. sent in by a medical professional or institution (, PA, RN UNIT MANAGER, urgent care, hospital, or longterm...) When possible be specific @ -No Did you speak to anyone other than the patient for history (EMS, parent, family, police, friend...)? What history was obtained from this source @ -No Did you review nursing and triage notes (agree or disagree)? Why? @ -I reviewed and agree with nursing and triage notes Were old charts reviewed (outside hosp., previous admission, EMS record, old EKG, old radiological studies, urgent care reports/EKG's, longterm records)? Report findings @ -No old charts were reviewed Differential Diagnosis (chest pain, altered mental status, abdominal pain women, abdominal pain men, vaginal bleeding, weakness, fever, dyspnea, syncope, headache, dizziness, GI bleed, back pain, seizure, CVA, palpatations, mental health, musculoskeletal)? @ -Differential Musculoskeletal Muscular strain, contusion, ligament sprain, fracture, arthritis, septic arthritis, bursitis, cellulitis, muscle spasm, nerve compression, DVT, arterial occlusion, herpes zoster, electrolyte abnormality, tumor.... This is not meant to be in all inclusive list EKG interpreted by me (3pts min.). @ -None X-rays interpreted by me (1pt min.). @ -X-ray interpreted by me revealing no acute process. CT interpreted by me (1pt min.). @ -None done U/S interpreted by me (1pt. min.). @ -Ultrasound interpreted by me showing no evidence of DVT or other acute process. What testing was considered but not performed or refused? (CT, X-rays, U/S, labs)? Why? @ -None What meds were considered but not given or refused? Why? @ -None Did you discuss the management of the patient with other professionals (professionals i.e. , PA, RN UNIT MANAGER, lab, RT, psych nurse, social worker aide, retention specialist, teacher, traffic division commanding officer, case planner)? Give summary @ -Case discussed with Dr. Johns, who accepts admission. Was smoking cessation discussed for >3mins.? @ -No Was critical care preformed (if so, how long)? @ -No Were there social determinants of health that impacted care today? How? (Homelessness, low income, unemployed, alcoholism, drug addiction, tra nsportation, low edu. Level, literacy, decrease access to med. care, long term, rehab)? @ -No Was there de-escalation of care discussed even if they declined (Discuss DNR or withdrawal of care, Hospice)? DNR status @ -No What co-morbidities impacted this encounter? (DM, HTN, Smoking, COPD, CAD, Cancer, CVA, ARF, Chemo, Hep., AIDS, mental health diagnosis, sleep apnea, morbid obesity)? @ -Obesity, prediabetes, lymphedema Was patient admitted / discharged? Hospital course, mention meds given and route, prescriptions, significant lab abnormalities, going to OR and other pertinent info. @ -Admission Laboratory studies reviewed. Laboratory studies significant for an elevated white blood cell count at 13.4, hemoglobin at 10.9, neutrophils 11.7. Chemistry panel largely unremarkable. Lactic acid 1.7. Imaging studies including ultrasound of the right lower extremity and x-ray of the tib-fib revealed no acute findings. At this time, vital signs are stable afebrile. Patient will be admitted for IV antibiotics. Vancomycin initiated in the ED. Blood cultures obtained. Discussed plan of care with patient who is in agreement. Undiagnosed new problem with uncertain prognosis? @ -No Drug Therapy requiring intensive monitoring for toxicity (Heparin, Nitro, Insulin, Cardizem)? @ -No Were any procedures done? @ -No Diagnosis/symptom? @ -Cellulitis, right lower extremity Acute, or Chronic, or Acute on Chronic? @ -Acute Uncomplicated (without systemic symptoms) or Complicated (systemic symptoms)? @ -Uncomplicated Side effects of treatment? @ -No Exacerbation, Progression, or Severe Exacerbation? @ -No Poses a threat to life or bodily function? How? (Chest pain, USA, VT, pneumonia, PE, COPD, DKA, ARF, appy, cholecystitis, CVA, Diverticulitis, Homicidal, Suicidal, threat to staff... and all critical care pts) @ -No - Lab Data Result diagrams: 09/16/23 22:20 09/16/23 22:20 Lab Results 09/16/23 09/16/23 09/16/23 Range/Units 22:20 22:20 22:20 WBC 13.4 H (3.8-10.6) k/uL RBC 5.25 (3.80-5.40) m/uL Hgb 10.9 L (11.4-16.0) gm/dL Hct 34.7 (34.0-46.0) % MCV 66.1 L (80.0-100.0) fL MCH 20.8 L (25.0-35.0) pg MCHC 31.5 (31.0-37.0) g/dL RDW 16.5 H (11.5-15.5) % Plt Count 232 (150-450) k/uL MPV 8.8 Neutrophils % 87 % Lymphocytes % 7 % Monocytes % 3 % Eosinophils % 1 % Basophils % 0 % Neutrophils # 11.7 H (1.3-7.7) k/uL Lymphocytes # 1.0 (1.0-4.8) k/uL Monocytes # 0.4 (0-1.0) k/uL Eosinophils # 0.1 (0-0.7) k/uL Basophils # 0.0 (0-0.2) k/uL Hypochromasia Moderate Anisocytosis Slight Microcytosis Marked Sodium 139 (137-145) mmol/L Potassium 4.2 (3.5-5.1) mmol/L Chloride 107 (98-107) mmol/L Carbon Dioxide 20 L (22-30) mmol/L Anion Gap 12 mmol/L BUN 21 H (7-17) mg/dL Creatinine 0.77 (0.52-1.04) mg/dL Est GFR (CKD-EPI)AfAm >90 (>60 ml/min/1.73 sqM) Est GFR (CKD-EPI)NonAf 88 (>60 ml/min/1.73 sqM) Glucose 139 H (74-99) mg/dL Plasma Lactic Acid Doug 1.7 (0.7-2.0) mmol/L Calcium 9.4 (8.4-10.2) mg/dL Total Bilirubin 0.9 (0.2-1.3) mg/dL AST 24 (14-36) U/L ALT 19 (4-34) U/L Alkaline Phosphatase 110 (38-126) U/L Total Protein 7.3 (6.3-8.2) g/dL Albumin 4.1 (3.5-5.0) g/dL Disposition Clinical Impression: Cellulitis Disposition: ADMITTED IP TO THIS HOSP Condition: Good Referrals: Kathy Carmona MD [Primary Care Provider] - 1-2 days Time of Disposition: 23:15
--- NOTE | 2023-09-16 22:29 | XR ---
EXAM: XR Right Tibia and Fibula, 2 Views CLINICAL HISTORY: ITS.REASON XR Reason: r/o osteo/gas TECHNIQUE: Frontal and lateral views of the right tibia and fibula. COMPARISON: No relevant prior studies available. FINDINGS: Bones/joints: Intact tibia and fibula. No acute fracture. No dislocation. Soft tissues: Unremarkable. No radiopaque foreign body. IMPRESSION: No acute findings in the right tibia and fibula or surrounding soft tissues.
[2023-09-16 22:50] LABS: Anisocytosis Slight; Basophils % (A) 0 %; Eosinophils # (A) 0.1 k/uL (0-0.7); Eosinophils % (A) 1 %; HCT 34.7 % (34.0-46.0); HGB 10.9 gm/dL (11.4-16.0); Hypochromasia Moderate; Lymphocytes % (A) 7 %; MCH 20.8 pg (25.0-35.0); MCHC 31.5 g/dL (31.0-37.0); MCV 66.1 fL (80.0-100.0); Mean Platelet Volume 8.8; Microcytosis Marked; Monocytes # (A) 0.4 k/uL (0-1.0); Monocytes % (A) 3 %; Neutrophils # (A) 11.7 k/uL (1.3-7.7); Neutrophils % (A) 87 %; Platelet Count 232 k/uL (150-450); RBC 5.25 m/uL (3.80-5.40); RDW 16.5 % (11.5-15.5); WBC 13.4 k/uL (3.8-10.6)
--- NOTE | 2023-09-16 23:03 | US ---
EXAM: US Duplex Right Lower Extremity Veins CLINICAL HISTORY: ITS.REASON US Reason: r/o dvt TECHNIQUE: Real-time duplex ultrasound scan of the right lower extremity veins integrating B-mode two-dimensional vascular structure, Doppler spectral analysis, color flow Doppler imaging and compression. COMPARISON: No relevant prior studies available. FINDINGS: Deep veins: Unremarkable. No DVT in the visualized common femoral, femoral, proximal deep femoral or popliteal veins. The veins demonstrate normal color flow, are normally compressible, with normal phasic flow and/or augmentation response. Superficial veins: Unremarkable. No thrombus in the visualized great saphenous vein. Soft tissues: No acute findings. No popliteal cyst. IMPRESSION: No DVT of the RIGHT lower extremity.
[2023-09-16 23:06] LABS: ALT 19 U/L (4-34); AST 24 U/L (14-36); African American GFR (CKD) >90 (>60 ml/min/1.73 sqM); Albumin 4.1 g/dL (3.5-5.0); Alkaline Phosphatase 110 U/L (38-126); Anion Gap 12 mmol/L; Blood Urea Nitrogen 21 mg/dL (7-17); Calcium 9.4 mg/dL (8.4-10.2); Carbon Dioxide 20 mmol/L (22-30); Chloride 107 mmol/L (98-107); Glucose 139 mg/dL (74-99); Non-African American GFR(CKD) 88 (>60 ml/min/1.73 sqM); Potassium 4.2 mmol/L (3.5-5.1); Sodium 139 mmol/L (137-145); Total Bilirubin 0.9 mg/dL (0.2-1.3); Total Protein 7.3 g/dL (6.3-8.2)
[2023-09-16] MEDS: ACETAMINOPHEN TAB 500 MG TAB PO STA (23:22)
[2023-09-16] MEDS ORDERED: VANCOMYCIN IV PER PHARMACY 1 EACH MISC MISCELLANE PRN (23:42)
[2023-09-16] MEDS ORDERED: NALOXONE 0.4 MG/ML 1 ML VIAL IV PRN (23:52)
[2023-09-16] MEDS ORDERED: HYDROmorphone 0.5 MG/0.5 ML SYRINGE IVP PRN (23:52)
[2023-09-17] MEDS: VANCOMYCIN 1,750 MG in SODIUM CHLORIDE 0.9% 500 ML 500 ML IVPB STA (02:00)
[2023-09-17] MEDS: SODIUM CHLORIDE 0.9% 1,000 ML IV SCH (02:27)
[2023-09-17] MEDS: MORPHINE SULFATE 4 MG/ML SYRINGE IVP STA (03:19)
[2023-09-17] MEDS: HYDROmorphone 1 MG/ML 1 ML SYRINGE IVP PRN (09:52)
[2023-09-17] MEDS: ONDANSETRON 4 MG/2 ML VIAL IVP PRN (11:44)
[2023-09-17] MEDS ORDERED: CALCIUM CARBONATE 500 MG CHEWABLE PO PRN (12:33)
[2023-09-17] MEDS ORDERED: LACTULOSE 20 GM/30 ML CUP PO PRN (12:33)
[2023-09-17] MEDS ORDERED: TEMAZEPAM 15 MG CAP PO PRN (12:33)
[2023-09-17] MEDS ORDERED: ALPRAZolam 0.25 MG TAB PO PRN (12:33)
[2023-09-17 13:41] LABS: Appearance,Urine Clear (Clear); Bilirubin,Urine Negative (Negative); Blood,Urine Negative (Negative); Color,Urine Yellow; Glucose,Urine (UA) Negative (Negative); Ketones,Urine Trace (Negative); Leukocyte Esterase,Urine Negative (Negative); Mucus,Urine Occasional /hpf; Nitrite,Urine Negative (Negative); Protein,Urine 1+ (Negative); RBC,Urine 2 /hpf (0-5); Specific Gravity,Urine 1.037 (1.001-1.035); Squamous Epithelial Cell,Urine <1 /hpf (0-4); WBC,Urine <1 /hpf (0-5)
[2023-09-17] MEDS ORDERED: VANCOMYCIN 1,750 MG in SODIUM CHLORIDE 0.9% 500 ML 500 ML IVPB SCH (14:00)
[2023-09-17] MEDS: AMPICILLIN-SULBACTAM 1.5 GM in SODIUM CHLORIDE 0.9% 50 ML IVPB SCH (14:25)
[2023-09-17] MEDS: ENOXAPARIN 40 MG/0.4 ML SYRINGE SQ SCH (14:25)
[2023-09-17] MEDS: LORATADINE 10 MG TAB PO SCH (14:25)
[2023-09-17] MEDS: NAPROXEN 250 MG TAB PO SCH (14:25)
--- NOTE | 2023-09-17 16:18 | P.HPIM ---
History of Present Illness H&P Date: 09/17/23 Chief Complaint: Right leg redness pain This is a pleasant 53-year-old patient who follows with Dr. Paula Carmona. Chronic stable medical conditions include diet-controlled diabetes and hypertension, hyperlipidemia, GERD, chronic lower extremity venous insufficiency, has a pneumatic compression device at home, patient did undergo sleeve gastrectomy 2018. Lost over 80 pounds. And also put on some weight. Patient 3 days ago was scratching the right lower extremity as it felt irritated. There for last 3 to 4 days increasing redness without swelling. Painful. Decided to come in. Decreased appetite. Denies any fever and chills. Found to have cellulitis of the right lower extremity. Review of systems: GEN.: Tired decreased appetite EYES: None HEENT: None NECK: None RESPIRATORY: None CARDIOVASCULAR: None GASTROINTESTINAL: None GENITOURINARY: None MUSCULOSKELETAL: [As above LYMPHATICS: None HEMATOLOGICAL: None PSYCHIATRY: None NEUROLOGICAL: None Social history: Lives with her sister. No smoking no alcohol. Physical examination: VITAL SIGNS: 98, 92, 18, 145/88, 97% room air GENERAL: BMI 38.7, reclining bed awake not in distress. EYES: Pupils equal. Conjunctiva marybel l. HEENT: External appearance of nose and ears normal, oral cavity grossly normal. NECK: JVD not raised; masses not palpable. HEART: First and second heart sounds are normal; no edema. LUNGS: Respiratory rate normal; clear to auscultation. ABDOMEN: Soft, nontender, liver spleen not palpable, no masses palpable. PSYCH: Alert and oriented x3; mood and affect marybel l. MUSCULOSKELETAL:No Clubbing/cyanosis;muscles-grossly intact DERMATOLOGICAL: Redness of the right lower extremity from below the knee down to the ankle. Increased local temperature. Tender. Varicose veins NEUROLOGICAL: Cranial nerves grossly intact; no facial asymmetry, power and sensation grossly intact. LYMPHATICS: No lymph nodes palpable in the axilla and neck INVESTIGATIONS, reviewed in the clinical context: September 16: White count 13.4 hemoglobin 10.9 platelets 232 potassium 4.2 BUN 21 creatinine 0.77 Venous Doppler right lower extremity: No DVT. Assessment and plan: -Acute cellulitis right lower extremity. Precipitated by possibly dry skin with patient's scratching. IV Unasyn, every 6. Silvadene cream with Kerlix and [place] wrap. Naproxen for anti-inflammatory. -Chronic bilateral lower extremity venous insufficiency Patient has a compression machine at home. -Obesity BMI 38.7 Weight loss measures -Diabetes mellitus type 2, diet controlled Consistent carbohydrate diet -Essential hypertension, diet controlled -Normocytic anemia Check iron studies. B12, folate, Care was discussed with the patient. Questions answered. Past Medical History Past Medical History: Diabetes Mellitus, GERD/Reflux, Hyperlipidemia, Hypertension, Skin Disorder Additional Past Medical History / Comment(s): anemia "I have low Iron." Seasonal allergies, poor venous circulation, has dependent edema (uses a pneumatic compression device machine at home). occasional boils in bilateral axillas. 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 sleeve gastrectomy 12-19 Past Anesthesia/Blood Transfusion Reactions: Motion Sickness, Postoperative N ausea & Vomiting (PONV) Additional Past Anesthesia/Blood Transfusion Reaction / Comment(s): PONV after bariatric surgery Past Psychological History: No Psychological Hx Reported Smoking Status: Never smoker Past Alcohol Use History: None Reported Past Drug Use History: None Reported - Past Family History Mother Additional Family Medical History / Comment(s): at age 57 from brain aneurysm. Father Family Medical History: Cancer Additional Family Medical History / Comment(s): at age 70 from prostate cancer Sister(s) Family Medical History: Diabetes Mellitus Additional Family Medical History / Comment(s): Sisters (X2) with DM. Medications and Allergies Home Medications Medication Instructions Recorded Confirmed Type Cetirizine HCl [Zyrtec] 10 mg PO DAILY 08/21/18 09/17/23 History Fluticasone Nasal [place] [Flonase 2 spray EA NOSTRIL DAILY 09/17/23 09/17/23 History Nasal [place]] hydroCHLOROthiazide [Hydrodiuril] 25 mg PO DAILY 09/17/23 09/17/23 History Allergies Allergy/AdvReac Type Severity Reaction Status Date / Time [place]O Inhibitors Allergy Swelling Verified 09/17/23 07:05 adhesive tape Allergy Rash/Hives Verified 09/17/23 07:05 tramadol AdvReac Vomiting Verified 09/17/23 07:05 Physical Exam Vitals: Vital Signs Temp Pulse Pulse Resp BP BP Pulse Ox 09/17/23 09:45 98.1 F 71 16 122/71 100 09/17/23 02:38 98.7 F 74 16 130/84 98 09/16/23 23:00 88 18 137/85 99 09/16/23 22:01 90 22 145/88 97 09/16/23 18:58 98.0 F 92 18 173/68 100 Intake and Output 09/16/23 09/17/23 09/17/23 22:59 06:59 14:59 Intake Total 1125 Balance 1125 Intake: Intake, IV Titration 875 Amount Sodium Chloride 0.9% 1, 375 000 ml @ 75 mls/hr IV . [id number] KRISTEN Rx#:[id number] Vancomycin 1,750 mg In 500 Sodium Chloride 0.9% 500 ml 500 ml @ 167 mls/hr IVPB Q12H KRISTEN Rx#: [id number] Oral 250 Other: # Voids 1 Weight 108.862 kg 108.862 kg Results CBC & Chem 7: 09/16/23 22:20 09/16/23 22:20 Labs: Abnormal Lab Results - Last 24 Hours (Table) 09/16/23 09/16/23 Range/Units 22:20 22:20 WBC 13.4 H (3.8-10.6) k/uL Hgb 10.9 L (11.4-16.0) gm/dL MCV 66.1 L (80.0-100.0) fL MCH 20.8 L (25.0-35.0) pg RDW 16.5 H (11.5-15.5) % Neutrophils # 11.7 H (1.3-7.7) k/uL Carbon Dioxide 20 L (22-30) mmol/L BUN 21 H (7-17) mg/dL Glucose 139 H (74-99) mg/dL
[2023-09-17] MEDS: SILVER sulfADIAZINE Cream 400 GM 1 APPLIC APPLIC TOPICAL SCH (16:26)
[2023-09-18 06:25] LABS: African American GFR (CKD) >90 (>60 ml/min/1.73 sqM); Non-African American GFR(CKD) >90 (>60 ml/min/1.73 sqM)
[2023-09-18 10:10] LABS: % Iron Saturation 5.34 (12.00-45.00)
[2023-09-18] MEDS: BACITRACIN/POLYMYX 500-10,000 UNIT/GM OINT 14 GM TUBE TOPICAL SCH (11:04)
[2023-09-18] MEDS: SODIUM FERRIC GLUCONAT-SUCROSE 125 MG in SODIUM CHLORIDE 0.9% 100 ML IVPB SCH (11:45)
[2023-09-18] MEDS: ACETAMINOPHEN TAB 325 MG TAB PO PRN (13:01)
[2023-09-18] MEDS: FLUCONAZOLE 150 MG TAB PO STA (15:06)
[2023-09-19 07:33] LABS: Anisocytosis Slight; Basophils # (A) 0.1 k/uL (0-0.2); Basophils % (A) 1 %; Eosinophils # (A) 0.3 k/uL (0-0.7); Eosinophils % (A) 3 %; HCT 32.9 % (34.0-46.0); HGB 10.4 gm/dL (11.4-16.0); Hypochromasia Marked; Lymphocytes % (A) 21 %; MCH 21.4 pg (25.0-35.0); MCHC 31.7 g/dL (31.0-37.0); MCV 67.3 fL (80.0-100.0); Mean Platelet Volume 7.9; Microcytosis Marked; Monocytes # (A) 0.5 k/uL (0-1.0); Monocytes % (A) 5 %; Neutrophils # (A) 6.5 k/uL (1.3-7.7); Neutrophils % (A) 68 %; Platelet Count 234 k/uL (150-450); RBC 4.88 m/uL (3.80-5.40); RDW 16.3 % (11.5-15.5); WBC 9.5 k/uL (3.8-10.6)
[2023-09-19 07:43] LABS: African American GFR (CKD) >90 (>60 ml/min/1.73 sqM); Non-African American GFR(CKD) >90 (>60 ml/min/1.73 sqM)
--- NOTE | 2023-09-19 18:58 | P.PN ---
Progress Note - Text Progress Note Date: 09/18/23 Chief Complaint: Right leg redness pain This is a pleasant 53-year-old patient who follows with Dr. Paula Carmona. Chronic stable medical conditions include diet-controlled diabetes and hypertension, hyperlipidemia, GERD, chronic lower extremity venous insufficiency, has a pneumatic compression device at home, patient did undergo sleeve gastrectomy 2018. Lost over 80 pounds. And also put on some weight. Patient 3 days ago was scratching the right lower extremity as it felt irritated. There for last 3 to 4 days increasing redness without swelling. Painful. Decided to come in. Decreased appetite. Denies any fever and chills. Found to have cellulitis of the right lower extremity. September 18: Getting Silvadene cream dressing to the right leg. Break in skin between right foot third and fourth toe. Topical antibiotic given. Pain is better. Slight improvement in redness. Tolerating diet. On IV Unasyn. Found to have iron deficiency anemia. IV iron ordered. Current medications reviewed Social history: Lives with her sister. No smoking no alcohol. Physical examination: VITAL SIGNS: 98.1, 58, 18, 131/76, 100% room air GENERAL: Reclining, comfortable EYES: Pupils equal. Conjunctiva marybel l. HEENT: External appearance of nose and ears normal, oral cavity grossly normal. NECK: JVD not raised; masses not palpable. HEART: First and second heart sounds are normal; no edema. LUNGS: Respiratory rate normal; clear to auscultation. ABDOMEN: Soft, nontender, liver spleen not palpable, no masses palpable. PSYCH: Alert and oriented x3; mood and affect marybel l. MUSCULOSKELETAL:No Clubbing/cyanosis;muscles-grossly intact DERMATOLOGICAL: Redness of the right lower extremity from below the knee down to the ankle. Increased local temperature. Tender. Varicose veins. Breakdown of skin in the web between the right foot third and fourth toe INVESTIGATIONS, reviewed in the clinical context: Iron 15 TIBC 281% saturation 5.34 ferritin 153 vitamin B12 445 procalcitonin 0.82 September 16: White count 13.4 hemoglobin 10.9 platelets 232 potassium 4.2 BUN 21 creatinine 0.77 Venous Doppler right lower extremity: No DVT. Assessment and plan: -Acute cellulitis right lower extremity. Precipitated by wound between the right third and fourth toe.: Slow to respond IV Unasyn, every 6. Silvadene cream with Kerlix and [place] wrap. Naproxen for anti-inflammatory. Topical Polymycin -Chronic bilateral lower extremity venous insufficiency Patient has a compression machine at home. -Obesity BMI 38.7 Weight loss measures -Diabetes mellitus type 2, diet controlled Consistent carbohydrate diet -Essential hypertension, diet controlled -Normocytic anemia. Iron deficiency anemia IV iron 3 doses Care was discussed with the patient. IV iron. Continue IV Unasyn. Past Medical History Past Medical History: Diabetes Mellitus, GERD/Reflux, Hyperlipidemia, Hypertension, Skin Disorder Additional Past Medical History / Comment(s): anemia "I have low Iron." Seasonal allergies, poor venous circulation, has dependent edema (uses a pneumatic compression device machine at home). occasional boils in bilateral axillas. 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 sleeve gastrectomy 12-19 Past Anesthesia/Blood Transfusion Reactions: Motion Sickness, Postoperative Nausea & Vomiting (PONV) Additional Past Anesthesia/Blood Transfusion Reaction / Comment(s): PONV after bariatric surgery Past Psychological History: No Psychological Hx Reported Smoking Status: Never smoker Past Alcohol Use History: None Reported Past Drug Use History: None Reported
--- NOTE | 2023-09-19 19:00 | P.PN ---
Progress Note - Text Progress Note Date: 09/19/23 Chief Complaint: Right leg redness pain This is a pleasant 53-year-old patient who follows with Dr. Paula Carmona. Chronic stable medical conditions include diet-controlled diabetes and hypertension, hyperlipidemia, GERD, chronic lower extremity venous insufficiency, has a pneumatic compression device at home, patient did undergo sleeve gastrectomy 2018. Lost over 80 pounds. And also put on some weight. Patient 3 days ago was scratching the right lower extremity as it felt irritated. There for last 3 to 4 days increasing redness without swelling. Painful. Decided to come in. Decreased appetite. Denies any fever and chills. Found to have cellulitis of the right lower extremity. September 18: Getting Silvadene cream dressing to the right leg. Break in skin between right foot third and fourth toe. Topical antibiotic given. Pain is better. Slight improvement in redness. Tolerating diet. On IV Unasyn. Found to have iron deficiency anemia. IV iron ordered. September 19: Right leg redness pain better. Started to ambulate. Topical antibiotic between the toes given. Procalcitonin coming down. Getting IV iron. Discussed with the patient. Social history: Lives witActive Medications Acetaminophen (Acetaminophen Tab 325 Mg Tab) 650 mg PO Q6HR PRN PRN Reason: Mild Pain or Fever > 100.5 Last Admin: 09/18/23 13:01 Dose: 650 mg Alprazolam (Alprazolam 0.25 Mg Tab) 0.25 mg PO Q6HR PRN PRN Reason: Anxiety Bacitracin/Polymyxin B Sulfate (Bacitracin/Polymyx 500-10,000 Unit/Gm Oint 14 Gm Tube) 1 applic TOPICAL BID [facility]; Protocol Last Admin: 09/19/23 10:21 Dose: 1 applic Calcium Carbonate/Glycine (Calcium Carbonate 500 Mg Chewable) 1,000 mg PO Q4HR PRN PRN Reason: Dyspepsia Enoxaparin Sodium (Enoxaparin 40 Mg/0.4 Ml Syringe) 40 mg SQ DAILY [facility] Last Admin: 09/19/23 10:20 Dose: 40 mg Sodium Chloride (Saline 0.9%) 1,000 mls @ 75 mls/hr IV .[id number] [facility] Last Admin: 09/18/23 23:22 Dose: 75 mls/hr Ampicillin Sodium/Sulbactam (Sodium 1.5 gm/ Sodium Chloride) 50 mls @ 100 mls/hr IVPB Q6HR [facility]; Protocol Last Admin: 09/19/23 17:32 Dose: 100 mls/hr Ferric Sodium Gluconate 125 mg (/ Sodium Chloride) 110 mls @ 100 mls/hr IVPB DAILY [facility] Stop: 09/20/23 10:05 Last Admin: 09/19/23 14:24 Dose: 100 mls/hr Lactulose (Lactulose 20 Gm/30 Ml Cup) 20 gm PO DAILY PRN PRN Reason: Constipation Loratadine (Loratadine 10 Mg Tab) 10 mg PO DAILY [facility] Last Admin: 09/19/23 10:19 Dose: 10 mg Naloxone HCl (Naloxone 0.4 Mg/Ml 1 Ml Vial) 0.2 mg IV Q2M PRN PRN Reason: Opioid Reversal Naproxen (Naproxen 250 Mg Tab) 250 mg PO TID [facility] Last Admin: 09/19/23 15:49 Dose: 250 mg Ondansetron HCl (Ondansetron 4 Mg/2 Ml Vial) 4 mg IVP Q8HR PRN PRN Reason: Nausea And Vomiting Last Admin: 09/17/23 11:44 Dose: 4 mg Silver Sulfadiazine (Silver Sulfadiazine Cream 400 Gm 1 Applic Applic) 1 applic TOPICAL BID [facility]; Protocol Last Admin: 09/19/23 10:22 Dose: 1 applic Temazepam (Temazepam 15 Mg Cap) 15 mg PO HS PRN PRN Reason: Insomnia h her sister. No smoking no alcohol. Physical examination: VITAL SIGNS: 98.5, 69, 16, 145/78, 100% room air GENERAL: Reclining, comfortable EYES: Pupils equal. Conjunctiva marybel l. HEENT: External appearance of nose and ears normal, oral cavity grossly normal. NECK: JVD not raised; masses not palpable. HEART: First and second heart sounds are normal; no edema. LUNGS: Respiratory rate normal; clear to auscultation. ABDOMEN: Soft, nontender, liver spleen not palpable, no masses palpable. PSYCH: Alert and oriented x3; mood and affect marybel l. MUSCULOSKELETAL:No Clubbing/cyanosis;muscles-grossly intact DERMATOLOGICAL: Redness of the right lower extremity from below the knee down to the ankle. Increased local temperature. Tender. Varicose veins. Breakdown of skin in the web between the right foot third and fourth toe: Improving INVESTIGATIONS, reviewed in the clinical context: September 19: White count 9.5 globin 10.4 procalcitonin 0.52 Iron 15 TIBC 281% saturation 5.34 ferritin 153 vitamin B12 445 procalcitonin 0.82 September 16: White count 13.4 hemoglobin 10.9 platelets 232 potassium 4.2 BUN 21 creatinine 0.77 Venous Doppler right lower extremity: No DVT. Assessment and plan: -Acute cellulitis right lower extremity. Precipitated by wound between the right third and fourth toe.: Improving IV Unasyn, every 6. Silvadene cream with Kerlix and [place] wrap. Naproxen for anti-inflammatory. Topical Polymycin -Chronic bilateral lower extremity venous insufficiency Patient has a compression machine at home. -Obesity BMI 38.7 Weight loss measures -Diabetes mellitus type 2, diet controlled Consistent carbohydrate diet -Essential hypertension, diet controlled -Normocytic anemia. Iron deficiency anemia IV iron 3 doses Care was discussed with the patient. IV iron. IV Unasyn. Possible discharge tomorrow. Past Medical History Past Medical History: Diabetes Mellitus, GERD/Reflux, Hyperlipidemia, Hypertension, Skin Disorder Additional Past Medical History / Comment(s): anemia "I have low Iron." Seasonal allergies, poor venous circulation, has dependent edema (uses a pneumatic compression device machine at home). occasional boils in bilateral axillas. 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 sleeve gastrectomy 12-19 Past Anesthesia/Blood Transfusion Reactions: Motion Sickness, Postoperative Nausea & Vomiting (PONV) Additional Past Anesthesia/Blood Transfusion Reaction / Comment(s): PONV after bariatric surgery Past Psychological History: No Psychological Hx Reported Smoking Status: Never smoker Past Alcohol Use History: None Reported Past Drug Use History: None Reported
[2023-09-20 06:05] VITALS: BP 152/89
[2023-09-20 08:19] VITALS: PULSE 55; RESP 18; TEMP 98.7
--- NOTE | 2023-09-20 16:57 | P.DS ---
Providers Date of admission: 09/17/23 01:38 Expected date of discharge: 09/20/23 Attending physician: Aden Johns Primary care physician: Kathy Carmona [place] [facility] Course: Chief Complaint: Right leg redness pain This is a pleasant 53-year-old patient who follows with Dr. Paula Carmona. Chronic stable medical conditions include diet-controlled diabetes and hypertension, hyperlipidemia, GERD, chronic lower extremity venous insufficiency, has a pneumatic compression device at home, patient did undergo sleeve gastrectomy 2018. Lost over 80 pounds. And also put on some weight. Patient 3 days ago was scratching the right lower extremity as it felt irritated. There for last 3 to 4 days increasing redness without swelling. Painful. Decided to come in. Decreased appetite. Denies any fever and chills. Found to have cellulitis of the right lower extremity. September 18: Getting Silvadene cream dressing to the right leg. Break in skin between right foot third and fourth toe. Topical antibiotic given. Pain is better. Slight improvement in redness. Tolerating diet. On IV Unasyn. Found to have iron deficiency anemia. IV iron ordered. September 19: Right leg redness pain better. Started to ambulate. Topical antibiotic between the toes given. Procalcitonin coming down. Getting IV iron. Discussed with the patient. September 20: Pain redness right leg much better. Also wound between the toe be tter. Patient completed 7 days of Keflex. Antibiotic ointment between the toe. Patient has compression machine at home for the lower extremity edema. Patient to return to work next Sunday. And follow-up with PCP. Questions answered. Also discussed with the patient to follow-up with Dr. Bert Darby regarding iron deficiency anemia. Discussion and discharge planning more than 35 minutes Social history: Lives with her sister. No smoking no alcohol. 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 Conjunctiva marybel l. HEENT: External appearance of nose and ears normal, oral cavity grossly normal. NECK: JVD not raised; masses not palpable. HEART: First and second heart sounds are normal; no edema. LUNGS: Respiratory rate normal; clear to auscultation. ABDOMEN: Soft, nontender, liver spleen not palpable, no masses palpable. PSYCH: Alert and oriented x3; mood and affect marybel l. MUSCULOSKELETAL:No Clubbing/cyanosis;muscles-grossly intact DERMATOLOGICAL: Redness of the right lower extremity from below the knee down to the ankle. Increased local temperature. Tender. Varicose veins. Breakdown of skin in the web between the right foot third and fourth toe: Much better INVESTIGATIONS, reviewed in the clinical context: September 19: White count 9.5 globin 10.4 procalcitonin 0.52 Iron 15 TIBC 281% saturation 5.34 ferritin 153 vitamin B12 445 procalcitonin 0.82 September 16: White count 13.4 hemoglobin 10.9 platelets 232 potassium 4.2 BUN 21 creatinine 0.77 Venous Doppler right lower extremity: No DVT. Assessment and plan: -Acute cellulitis right lower extremity. Precipitated by wound between the right third and fourth toe.: Improving IV Unasyn, every 6. Silvadene cream with Kerlix and [place] wrap. Naproxen for anti-inflammatory. Topical Polymycin Keflex for 7 days. Topical antibiotic between the toe. -Chronic bilateral lower extremity venous insufficiency Patient has a compression machine at home. -Obesity BMI 38.7 Weight loss measures -Diabetes mellitus type 2, diet controlled Consistent carbohydrate diet -Essential hypertension, diet controlled -Normocytic anemia. Iron deficiency anemia IV iron 3 doses Follow-up with Dr. Bert Darby outpatient Disposition: Home Past Medical History Past Medical History: Diabetes Mellitus, GERD/Reflux, Hyperlipidemia, Hypertension, Skin Disorder Additional Past Medical History / Comment(s): anemia "I have low Iron." Seasonal allergies, poor venous circulation, has dependent edema (uses a pneumatic compression device machine at home). occasional boils in bilateral axillas. 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 sleeve gastrectomy 12-19 Past Anesthesia/Blood Transfusion Reactions: Motion Sickness, Postoperative Nausea & Vomiting (PONV) Additional Past Anesthesia/Blood Transfusion Reaction / Comment(s): PONV after bariatric surgery Past Psychological History: No Psychological Hx Reported Smoking Status: Never smoker Past Alcohol Use History: None Reported Past Drug Use History: None Reported Plan - Discharge Summary Discharge Rx Participant: No New Discharge Prescriptions: New Naproxen [Naprosyn] 250 mg PO BID #14 tab Acetaminophen Tab [Tylenol] 650 mg PO Q6HR PRN tab PRN Reason: Mild Pain Or Fever > 100.5 Cephalexin [Keflex] 500 mg PO Q6HR #28 cap Bacitracin/Polymyx Oint [Polysporin Oint] 1 applic TOPICAL BID #1 each Continue Cetirizine HCl [Zyrtec] 10 mg PO DAILY hydroCHLOROthiazide [Hydrodiuril] 25 mg PO DAILY Fluticasone Nasal [place] [Flonase Nasal [place]] 2 spray EA NOSTRIL DAILY Discharge Medication List Cetirizine HCl [Zyrtec] 10 mg PO DAILY 08/21/18 [History] Fluticasone Nasal [place] [Flonase Nasal [place]] 2 spray EA NOSTRIL DAILY 09/17/23 [History] hydroCHLOROthiazide [Hydrodiuril] 25 mg PO DAILY 09/17/23 [History] Acetaminophen Tab [Tylenol] 650 mg PO Q6HR PRN tab 09/20/23 [Rx] Bacitracin/Polymyx Oint [Polysporin Oint] 1 applic TOPICAL BID #1 each 09/20/23 [Rx] Cephalexin [Keflex] 500 mg PO Q6HR #28 cap 09/20/23 [Rx] Naproxen [Naprosyn] 250 mg PO BID #14 tab 09/20/23 [Rx] Follow up Appointment(s)/Referral(s): Bronwyn Darby MD [STAFF PHYSICIAN] - 10/12/23 9:30 am (The reason is iron deficiency anemia.) Kathy Carmona MD [Primary Care Provider] - 1-2 days (Please call office for appointment time and date.) Patient Instructions/Handouts: Cephalexin (By mouth), Naproxen (By mouth), Bacitracin/Polymyxin B sulfate (On the skin) Discharge/Stand Alone Forms: Work/School Release Discharge Disposition: HOME SELF-CARE
== END 2023-09-20 16:17 | disposition home or self-care (01) ==
LOC: EC 18:28 → INTOOBSV 09-17 01:38 → 4SSUR 09-17 01:38 → 5NMEDONC 09-17 02:06 → UNDODISIN 09-20 16:17
PROVIDERS: ADMIT Hospitalist; ATTEND Hospitalist
DX: L03.115 Cellulitis of right lower limb (principal); I87.2 Venous insufficiency (chronic) (peripheral); D50.9 Iron deficiency anemia, unspecified; I89.0 Lymphedema, not elsewhere classified; E11.9 Type 2 diabetes mellitus without complications; I10 Essential (primary) hypertension; E78.5 Hyperlipidemia, unspecified; K21.9 Gastro-esophageal reflux disease without esophagitis; Z79.899 Other long term (current) drug therapy; Z88.5 Allergy status to narcotic agent; Z88.8 Allergy status to other drugs, medicaments and biological substances; Z91.048 Other nonmedicinal substance allergy status; E66.9 Obesity, unspecified; Z68.38 Body mass index [BMI] 38.0-38.9, adult; Z98.84 Bariatric surgery status
CPT/HCPCS: 96361 ×3; 96366 ×3; 96367 ×2; 96372 ×4; 96365; 96375; 99285; 36415; 80053; 82607; 82728; 82565 ×2; 82746; 83540; 83550; 83605; 85025 ×2; 81001; 87040; 87070; 87205; 87075; 87077; 87186; 84145 ×2; 73590; 93971; G0378 ×4; J3370; J2270; J2405; J1650 ×4; J2916 ×3; J1170; J0295 ×4

== ENCOUNTER 2023-10-16 18:23 | Emergency (ER) | payer BC ==
--- NOTE | 2023-10-16 20:19 | ED ---
General Adult HPI - General Source: patient, RN notes reviewed Mode of arrival: ambulatory Limitations: no limitations <Yaquelin Dick - Last Filed: 10/16/23 20:16> <Roxann Cortez - Last Filed: 10/17/23 02:57> - General Chief complaint: Extremity Injury, Lower Stated complaint: abnormal labs Time Seen by Provider: 10/16/23 20:15 - History of Present Illness Initial comments: Quick Note: This is a 53-year-old female who presents to the emergency department for right leg pain and redness. Patient was discharged from this facility on 09/20 after being admitted for right leg cellulitis. She was treated with IV antibiotics and discharged with a 7-day course of Keflex. States that the leg is not getting any better. She followed up with her PCP who advised she get an ultrasound to rule out a DVT. (Yaquelin Dick) 53-year-old female presenting with chief complaint of pain and swelling to the right lower leg. Patient has history of cellulitis to this. Patient was treated at our facility for cellulitis and discharged on 09/20 on Keflex. Patient states that while her swelling, redness, and pain are not worsening, her doctor was concerned that the pain was not improving by now. She advised to ER and get an ultrasound of the lower DVT. Patient has no chest pain or difficulty breathing. No fevers or chills. No numbness or tingling or weakness. (Roxann Cortez) - Related Data Home Medications Medication Instructions Recorded Confirmed Cetirizine HCl [Zyrtec] 10 mg PO DAILY 08/21/18 09/17/23 Fluticasone Nasal [place] [Flonase 2 spray EA NOSTRIL DAILY 09/17/23 09/17/23 Nasal [place]] hydroCHLOROthiazide [Hydrodiuril] 25 mg PO DAILY 09/17/23 09/17/23 Previous Rx's Medication Instructions Recorded Acetaminophen Tab [Tylenol] 650 mg PO Q6HR PRN tab 09/20/23 Bacitracin/Polymyx Oint 1 applic TOPICAL BID #1 each 09/20/23 [Polysporin Oint] Cephalexin [Keflex] 500 mg PO Q6HR #28 cap 09/20/23 Naproxen [Naprosyn] 250 mg PO BID #14 tab 09/20/23 Clindamycin [Cleocin] 450 mg PO TID 7 Days #63 cap 10/16/23 Allergies Allergy/AdvReac Type Severity Reaction Status Date / Time MARY Inhibitors Allergy Swelling Verified 09/17/23 07:05 adhesive tape Allergy Rash/Hives Verified 09/17/23 07:05 tramadol AdvReac Vomiting Verified 09/17/23 07:05 Review of Systems ROS Other: All systems not noted in ROS Statement are negative. <Yaquelin Dick - Last Filed: 10/16/23 20:16> ROS Other: All systems not noted in ROS Statement are negative. <Roxann Cortez - Last Filed: 10/17/23 02:57> ROS Statement: Those systems with pertinent positive or pertinent negative responses have been documented in the HPI. Past Medical History Past Medical History: Diabetes Mellitus, GERD/Reflux, Hyperlipidemia, Hypertension, Skin Disorder Additional Past Medical History / Comment(s): anemia "I have low Iron." Seasonal allergies, poor venous circulation, has dependent edema (uses a pneumatic compression device machine at home). occasional boils in bilateral axillas. 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 sleeve gastrectomy 12-19 Past Anesthesia/Blood Transfusion Reactions: Motion Sickness, Postoperative Nausea & Vomiting (PONV) Additional Past Anesthesia/Blood Transfusion Reaction / Comment(s): PONV after bariatric surgery Past Psychological History: No Psychological Hx Reported Smoking Status: Never smoker Past Alcohol Use History: None Reported Past Drug Use History: None Reported - Past Family History Mother Additional Family Medical History / Comment(s): at age 57 from brain aneurysm. Father Family Medical History: Cancer Additional Family Medical History / Comment(s): at age 70 from prostate cancer Sister(s) Family Medical History: Diabetes Mellitus Additional Family Medical History / Comment(s): Sisters (X2) with DM. <Yaquelin Dick - Last Filed: 10/16/23 20:16> General Exam Limitations: no limitations <Yaquelin Dick - Last Filed: 10/16/23 20:16> Limitations: no limitations General appearance: alert, in no apparent distress Head exam: Present: atraumatic, normocephalic Eye exam: Present: normal appearance Neck exam: Present: normal inspection Respiratory exam: Absent: respiratory distress Cardiovascular Exam: Present: regular rate Right Lower Leg exam: Present: tenderness, swelling, erythema Neurovascular tendon exam: Present: no vascular compromise Neurological exam: Present: alert, oriented X3 Psychiatric exam: Present: normal affect, normal mood Skin exam: Present: warm, dry <Roxann Cortez - Last Filed: 10/17/23 02:57> - General Exam Comments Initial Comments: Visual Physical Exam Vital signs reviewed General: Well-appearing, nontoxic, no acute distress. Head: Normocephalic, atraumatic Eyes: PERRLA, EOMI ENT: Airway patent Chest: Nonlabored breathing Skin: No visual rash, normal skin tone Neuro: Alert and oriented 3 Musculoskeletal: No gross abnormalities (Yaquelin Dick) Course Vital Signs 10/16/23 10/16/23 18:46 21:35 Temperature 98.7 F 97.5 F L Pulse Rate 66 68 Respiratory 18 16 Rate Blood Pressure 161/101 156/95 O2 Sat by Pulse 99 100 Oximetry Medical Decision Making <Yaquelin Dick - Last Filed: 10/16/23 20:16> - Lab Data Result diagrams: 10/16/23 21:10 10/16/23 21:10 <Roxann Cortez - Last Filed: 10/17/23 02:57> - Medical Decision Making I performed the QuickNote portion of this chart. Signed Yaquelin Dick PA-C. (Yaquelin Dick) Was pt. sent in by a medical professional or institution (TUCKER Kaplan, DIRECTOR OF SOCIAL SERVICES, urgent care, hospital, or fpc...) When possible be specific @ -PCP Did you speak to anyone other than the patient for history (EMS, parent, family, police, friend...)? What history was obtained from this source @ -No Did you review nursing and triage notes (agree or disagree)? Why? @ -I reviewed and agree with nursing and triage notes Were old charts reviewed (outside hosp., previous admission, EMS record, old EKG, old radiological studies, urgent care reports/EKG's, fpc records)? Report findings @ -No old charts were reviewed Differential Diagnosis (chest pain, altered mental status, abdominal pain women, abdominal pain men, vaginal bleeding, weakness, fever, dyspnea, syncope, headache, dizziness, GI bleed, back pain, seizure, CVA, palpatations, mental health, musculoskeletal)? @ -Differential Musculoskeletal Muscular strain, contusion, ligament sprain, fracture, arthritis, septic arthritis, bursitis, cellulitis, muscle spasm, nerve compression, DVT, arterial occlusion, herpes zoster, electrolyte abnormality, tumor.... This is not meant to be in all inclusive list EKG interpreted by me (3pts min.). @ -As above X-rays interpreted by me (1pt min.). @ -None done CT interpreted by me (1pt min.). @ -None done U/S interpreted by me (1pt. min.). @ -Ultrasound is negative for DVT What testing was considered but not performed or refused? (CT, X-rays, U/S, labs)? Why? @ -None What meds were considered but not given or refused? Why? @ -None Did you discuss the management of the patient with other professionals (professionals i.e. , PA, DIRECTOR OF SOCIAL SERVICES, lab, RT, psych nurse, director of social services, director of rehabilitation, teacher, artillery officer, family preservation caseworker)? Give summary @ -No Was smoking cessation discussed for >3mins.? @ -No Was critical care preformed (if so, how long)? @ -No Were there social determinants of health that impacted care today? How? (Homelessness, low income, unemployed, alcoholism, drug addiction, transportation, low edu. Level, literacy, decrease access to med. care, prison, rehab)? @ -No Was there de-escalation of care discussed even if they declined (Discuss DNR or withdrawal of care, Hospice)? DNR status @ -No What co-morbidities impacted this encounter? (DM, HTN, Smoking, COPD, CAD, Cancer, CVA, ARF, Chemo, Hep., AIDS, mental health diagnosis, sleep apnea, morbid obesity)? @ -None Was patient admitted / discharged? Hospital course, mention meds given and route, prescriptions, significant lab abnormalities, going to OR and other pertinent info. @ --year-old female presenting with chief complaint of pain and swelling to the right lower leg. Patient has had ongoing cellulitis to this leg. Cellulitis is not worsening, however her physician was concerned for continued pain and advised her to come to the ER for an ultrasound. Workup is initiated by triage. Patient is later placed in a hallway bed where the history and physical exam are conducted. Ultrasound is negative for DVT. Lab work shows no leukocytosis. Patient will be discharged on clindamycin and instructed to follow-up with her PCP. Follow-up with PCP. Report back to ER with any new or worsening symptoms. Discussed return parameters and answered all questions. Patient conveyed verbal understanding and agreed to the plan. I discussed this case in detail with my attending Dr. Dang Undiagnosed new problem with uncertain prognosis? @ -No Drug Therapy requiring intensive monitoring for toxicity (Heparin, Nitro, Insulin, Cardizem)? @ -No Were any procedures done? @ -No Diagnosis/symptom? @ -Cellulitis Acute, or Chronic, or Acute on Chronic? @ -Acute Uncomplicated (without systemic symptoms) or Complicated (systemic symptoms)? @ -Uncomplicated Side effects of treatment? @ -No Exacerbation, Progression, or Severe Exacerbation? @ -No Poses a threat to life or bodily function? How? (Chest pain, [place], [place], pneumonia, PE, COPD, DKA, ARF, appy, cholecystitis, CVA, Diverticulitis, Homicidal, Suicidal, threat to staff... and all critical care pts) @ -Low likelihood (Roxann Cortez) - Lab Data Lab Results 10/16/23 10/16/23 10/16/23 Range/Units 21:10 21:10 21:10 WBC 6.0 (3.8-10.6) k/uL RBC 5.08 (3.80-5.40) m/uL Hgb 10.7 L (11.4-16.0) gm/dL Hct 34.7 (34.0-46.0) % MCV 68.3 L (80.0-100.0) fL MCH 21.0 L (25.0-35.0) pg MCHC 30.8 L (31.0-37.0) g/dL RDW 17.1 H (11.5-15.5) % Plt Count 273 (150-450) k/uL MPV 7.1 Neutrophils % 36 % Lymphocytes % 54 % Monocytes % 4 % Eosinophils % 3 % Basophils % 1 % Neutrophils # 2.2 (1.3-7.7) k/uL Lymphocytes # 3.3 (1.0-4.8) k/uL Monocytes # 0.3 (0-1.0) k/uL Eosinophils # 0.2 (0-0.7) k/uL Basophils # 0.1 (0-0.2) k/uL Hypochromasia Marked Anisocytosis Slight Microcytosis Marked Sodium 140 (137-145) mmol/L Potassium 3.5 (3.5-5.1) mmol/L Chloride 108 H (98-107) mmol/L Carbon Dioxide 27 (22-30) mmol/L Anion Gap 5 mmol/L BUN 14 (7-17) mg/dL Creatinine 0.75 (0.52-1.04) mg/dL Est GFR (CKD-EPI)AfAm >90 (>60 ml/min/1.73 sqM) Est GFR (CKD-EPI)NonAf >90 (>60 ml/min/1.73 sqM) Glucose 110 H (74-99) mg/dL Plasma Lactic Acid Doug 1.1 (0.7-2.0) mmol/L Calcium 9.4 (8.4-10.2) mg/dL Total Bilirubin 0.7 (0.2-1.3) mg/dL AST 22 (14-36) U/L ALT 15 (4-34) U/L Alkaline Phosphatase 120 (38-126) U/L C-Reactive Protein 0.5 (<1.0) mg/dL Total Protein 7.1 (6.3-8.2) g/dL Albumin 4.2 (3.5-5.0) g/dL Disposition <Yaquelin Dick - Last Filed: 10/16/23 20:16> Is patient prescribed a controlled substance at d/c from ED?: No Time of Disposition: 23:54 <Roxann Cortez - Last Filed: 10/17/23 02:57> Clinical Impression: Cellulitis Disposition: HOME SELF-CARE Condition: Fair Instructions (If sedation given, give patient instructions): Cellulitis (ED) Additional Instructions: Follow-up with PCP. Report back to ER with any new or worsening symptoms. Prescriptions: Clindamycin [Cleocin] 450 mg PO TID 7 Days #63 cap Referrals: Kathy Carmona MD [Primary Care Provider] - 1-2 days
[2023-10-16 21:35] LABS: Anisocytosis Slight; Basophils # (A) 0.1 k/uL (0-0.2); Basophils % (A) 1 %; Eosinophils # (A) 0.2 k/uL (0-0.7); Eosinophils % (A) 3 %; HCT 34.7 % (34.0-46.0); HGB 10.7 gm/dL (11.4-16.0); Hypochromasia Marked; Lymphocytes # (A) 3.3 k/uL (1.0-4.8); Lymphocytes % (A) 54 %; MCHC 30.8 g/dL (31.0-37.0); MCV 68.3 fL (80.0-100.0); Mean Platelet Volume 7.1; Microcytosis Marked; Monocytes # (A) 0.3 k/uL (0-1.0); Monocytes % (A) 4 %; Neutrophils # (A) 2.2 k/uL (1.3-7.7); Neutrophils % (A) 36 %; Platelet Count 273 k/uL (150-450); RBC 5.08 m/uL (3.80-5.40); RDW 17.1 % (11.5-15.5)
[2023-10-16 21:50] LABS: ALT 15 U/L (4-34); AST 22 U/L (14-36); African American GFR (CKD) >90 (>60 ml/min/1.73 sqM); Albumin 4.2 g/dL (3.5-5.0); Alkaline Phosphatase 120 U/L (38-126); Anion Gap 5 mmol/L; Blood Urea Nitrogen 14 mg/dL (7-17); C Reactive Protein 0.5 mg/dL (<1.0); Calcium 9.4 mg/dL (8.4-10.2); Carbon Dioxide 27 mmol/L (22-30); Chloride 108 mmol/L (98-107); Glucose 110 mg/dL (74-99); Non-African American GFR(CKD) >90 (>60 ml/min/1.73 sqM); Potassium 3.5 mmol/L (3.5-5.1); Sodium 140 mmol/L (137-145); Total Bilirubin 0.7 mg/dL (0.2-1.3); Total Protein 7.1 g/dL (6.3-8.2)
--- NOTE | 2023-10-16 21:50 | US ---
EXAMINATION TYPE: US venous doppler duplex LE RT DATE OF EXAM: 10/16/2023 9:09 PM COMPARISON: 09/16/23 CLINICAL INDICATION: Female, 53 years old with history of Pain and redness; pain and redness x 1 lenora h. Pt diagnosed with cellulitis SIDE PERFORMED: RIght TECHNIQUE: The lower extremity deep venous system is examined utilizing real time linear array sonog stanislav with graded compression, doppler sonography and color-flow sonography. VESSELS IMAGED: Common Femoral Vein Deep Femoral Vein Greater Saphenous Vein * Femoral Vein Popliteal Vein Small Saphenous Vein * Proximal Calf Veins (* superficial vessels) Right Leg: Negative for DVT IMPRESSION: Grayscale, color doppler, spectral doppler imaging performed of the deep veins of the lo wer extremities. There is normal flow, compressibility, vascular waveforms.
[2023-10-16 21:54] VITALS: BP 156/95; PULSE 68; RESP 16; TEMP 97.5
[2023-10-16] MEDS: HYDROcodone/APAP 7.5-325MG 1 EACH TAB PO ONE (23:48)
[2023-10-16] MEDS: CLINDAMYCIN 150 MG CAP PO STA (23:55)
[2023-10-17] MEDS: ACET/COD 300 MG/30 MG STARTER PACK 6 TAB BTL PO STA (00:04)
[2023-10-17 19:14] LABS: Erythrocyte Sedimentation Rate 83 mm/Hr (0-30)
== END 2023-10-17 00:06 | disposition home or self-care (01) ==
LOC: EC 18:23
DX: L03.115 Cellulitis of right lower limb (principal); E11.9 Type 2 diabetes mellitus without complications; I10 Essential (primary) hypertension; Z88.5 Allergy status to narcotic agent; Z88.8 Allergy status to other drugs, medicaments and biological substances
CPT/HCPCS: 36415; 80053; 83605; 85025; 85652; 86140; 99284

== ENCOUNTER → 2023-11-02 | Day surgery (SDC) | payer BC ==
[2023-10-31 15:17] VITALS: BMI 37.9
[~2023-11-02] MED LIST changes: -LIDOCAINE 1% (10MG/ML) FOR IV START INTRADERMA PRN; +LIDOCAINE 1% INJ 10MG/ML (20 ML MDV) ONE; +PROPOFOL 10 MG/ML 20 ML VIAL IV ONE
[2023-11-02 06:44] LABS: Glucose,Whole Blood 92 mg/dL (70-110)
[2023-11-02] MEDS: LACTATED RINGERS 1,000 ML IV ONE (06:45)
[2023-11-02 06:46] VITALS: TEMP 97.1
--- NOTE | 2023-11-02 07:38 | P.PCN ---
Date of Procedure: 11/02/23 Procedure(s) Performed: Brief history: Patient is a pleasant 53-year-old half intermittent female scheduled for an elective upper endoscopy as well as colonoscopy as a part of evaluation of iron deficiency anemia. Last hemoglobin was 7 g/dL. Denies any GI symptoms other than occasional heartburn. History of gastric sleeve surgery in 2019. Procedure performed: Esophagogastroduodenoscopy with biopsy Colonoscopy Preoperative diagnosis: Iron deficiency anemia Anesthesia: [facility] Procedure: After informed consent was obtained from the patient was brought into the endoscopy unit and IV sedation was administered by anesthesia under continuous monitoring. Initially upper endoscopy was done. The Olympus GF 160 video endoscope was inserted inserted into the mouth and esophagus intubated without any difficulty and was gradually advanced into the stomach and duodenum and carefully examined. The bulb and second part of the duodenum appeared normal. Biopsies were done from the duodenum to rule out celiac disease. The scope was then withdrawn into the stomach adequately insufflated with air and upon careful examination the antrum had mild gastritis and biopsies were done from this area. There was evidence of gastric sleeve surgery noted. On retroflexion the fundus appeared normal. The scope was then withdrawn into the esophagus. Small hiatal hernia noted. The GE junction was located at 40 cm to the incisors. It appeared regular with no erythema erosions or ulcerations. Rest of the esophagus appeared normal. Patient tolerated the procedure well. At this time the patient continued to remain sedation. Initial digital rectal examination was normal. Olympus CF 160 video colonoscope was then inserted into the rectum and gradually advanced to the cecum without any difficulty. Careful examination was performed as the scope was gradually being withdrawn. The prep was excellent. The cecum, ascending colon, transverse colon, descending colon, sigmoid colon and rectum appeared normal. Retroflexion was performed in the rectum and no lesions were noted. Patient tolerated the procedure well. Impression: 1. Upper endoscopy revealed evidence of gastric sleeve surgery, mild gastritis and small hiatal hernia 2. Colonoscopy was within normal limits with no evidence of colitis or colorectal neoplasia Recommendations: Findings of this examination were discussed with the patient as well as a family. She was advised to continue with iron supplements daily and monitor CBC periodically. Recommend repeat screening colonoscopy in 10 years.
[2023-11-02 07:58] VITALS: RESP 14
[2023-11-02 08:31] LABS: Glucose,Whole Blood 71 mg/dL (70-110)
[2023-11-02 08:34] VITALS: BP 145/93; PULSE 69
[2023-11-02 08:44] LABS: Glucose,Whole Blood 82 mg/dL (70-110)
== END ==
LOC: ORWHC2ENDO 05:58
PROVIDERS: ATTEND Internal Medicine Gastroenterology
DX: K29.50 Unspecified chronic gastritis without bleeding (principal); K44.9 Diaphragmatic hernia without obstruction or gangrene; D50.9 Iron deficiency anemia, unspecified; I10 Essential (primary) hypertension; E78.5 Hyperlipidemia, unspecified; E11.9 Type 2 diabetes mellitus without complications; Z98.84 Bariatric surgery status; Z79.899 Other long term (current) drug therapy
CPT/HCPCS: 81025; 88305; 45378; 43239; J2001; J2704

== ENCOUNTER → 2024-03-17 | Outpatient (CLI) | payer BC ==
--- NOTE | 2024-03-17 10:06 | US ---
EXAMINATION TYPE: US abdomen complete DATE OF EXAM: 03/17/2024 COMPARISON: CT: 09/15/19 MRI to 521 CLINICAL INDICATION: Female, 53 years old with history of R10.11 RUQ PAIN; RUQ pain x 1 month TECHNIQUE: Multiple sonographic images of the abdomen are obtained. FINDINGS: EXAM MEASUREMENTS: Liver Length: 14.8 cm Gallbladder Wall: 0.17 cm CBD: 0.63 cm Spleen: 9.9 cm Right Kidney: 10.4 x 4.8 x 4.0 cm Left Kidney: 10.8 x 4.3 x 4.8 cm LANDSCAPE DESIGNER NOTES: Pancreas: parts seen appear wnl Liver: hypoechoic area seen in left lobe measuring 2.6 x 2.1 x 1.8cm compatible with simple cyst on prior MRI. Gallbladder: wnl Evidence for sonographic Torres's sign: No CBD: wnl Spleen: wnl Right Kidney: wnl Left Kidney: wnl Upper IVC: wnl Abd Aorta: wnl The liver is homogenous. The intrahepatic portion of the IVC and proximal abdominal aorta are within normal limits. There is no evidence of cholelithiasis. Common bile duct is unremarkable. The visu alized portions of the pancreas are homogenous. The spleen is unremarkable. Kidneys are symmetric a nd free of hydronephrosis. No renal lesions are seen. IMPRESSION: 1. No evidence for acute process. 2. Hepatic cyst.
== END | disposition home or self-care (01) ==
LOC: RADUSWWP 07:16
PROVIDERS: ATTEND Internal Medicine
DX: K76.89 Other specified diseases of liver (principal)
CPT/HCPCS: 76700

== ENCOUNTER → 2024-03-18 | Outpatient (CLI) | payer BC ==
[2024-03-18 15:13] VITALS: BP 137/84; PULSE 82; RESP 16; TEMP 98.1; BMI 35.5
--- NOTE | 2024-03-18 15:33 | P.BASOAP ---
Subjective Progress Note Date: 03/18/24 Principal diagnosis: Morbid obesity Patient returns for recheck. Last seen 2 years ago. Weight is down approximately 25 pounds. She was hospitalized in August with lower extremity cellulitis. Patient has history of bilateral lower extremity lymphedema. Since her admission she had been using her diuretics regularly and also using her lower extremity lymphedema pumps 1 hour daily. Recently she stopped doing both of those things after traveling. She says she plans to restart that. Takes antiacids only periodically as needed for heartburn. No dysphagia. Over the last 1 month however she has had pain right lower quadrant which radiates to the back. No hematuria. Ultrasound performed yesterday showing no gallstones. She is due for blood work. Patient also had recent upper and lower endoscopy by GI. No major abnormalities were noted. Objective - Vital Signs Vital signs: Vital Signs Temp 98.1 F 03/18/24 15:11 Pulse 82 03/18/24 15:11 Resp 16 03/18/24 15:11 BP 137/84 03/18/24 15:11 Pulse Ox FiO2 Intake & Output 03/17/24 03/18/24 03/18/24 18:59 06:59 18:59 Weight 99.79 kg - Exam Abdomen: Soft, nontender, nondistended Assessment/Plan (1) Morbid obesity Narrative/Plan: 53-year-old female with morbid obesity. Patient with right lower quadrant pain. Rule out appendicitis. Check annual lab work. Check CT abdomen pelvis with contrast. Follow-up 1 year. Will contact patient with results of labs and CAT scan. Plan: Date: 03/18/24 Initial Weight: 129.727 kg Initial BMI: 46.1 Current Weight: 99.79 kg Current BMI: 35.5 Type of Surgery: Vertical Sleeve Gastrectomy Total Volume in Band: Previous Volume: Volume Removed: Volume Added: Band Size:
== END ==
LOC: BARWHC3 15:04
PROVIDERS: ATTEND Surgery
DX: E66.01 Morbid (severe) obesity due to excess calories (principal); R10.31 Right lower quadrant pain; L03.119 Cellulitis of unspecified part of limb; I89.0 Lymphedema, not elsewhere classified; Z68.35 Body mass index [BMI] 35.0-35.9, adult; Z88.8 Allergy status to other drugs, medicaments and biological substances; Z88.5 Allergy status to narcotic agent; Z91.048 Other nonmedicinal substance allergy status
CPT/HCPCS: 99211

== ENCOUNTER → 2024-03-20 | Outpatient (CLI) | payer BC ==
[2024-03-20 07:44] LABS: HGB 11.8 gm/dL (11.4-16.0); Hypochromasia Marked; MCH 21.5 pg (25.0-35.0); MCHC 30.3 g/dL (31.0-37.0); MCV 71.1 fL (80.0-100.0); Microcytosis Moderate; Platelet Count 259 k/uL (150-450); RBC 5.49 m/uL (3.80-5.40); RDW 14.7 % (11.5-15.5); WBC 4.8 k/uL (3.8-10.6)
[2024-03-20 07:57] LABS: African American GFR (CKD) >90 (>60 ml/min/1.73 sqM); Blood Urea Nitrogen 16 mg/dL (7-17); Non-African American GFR(CKD) >90 (>60 ml/min/1.73 sqM)
[2024-03-20 07:58] LABS: ALT 21 U/L (4-34); African American GFR (CKD) >90 (>60 ml/min/1.73 sqM); Albumin 4.1 g/dL (3.5-5.0); Albumin/Globulin Ratio 1.5; Anion Gap 4 mmol/L; Blood Urea Nitrogen 17 mg/dL (7-17); Calcium 9.4 mg/dL (8.4-10.2); Carbon Dioxide 30 mmol/L (22-30); Chloride 108 mmol/L (98-107); Globulin 2.7 g/dL; Glucose 82 mg/dL (74-99); Non-African American GFR(CKD) >90 (>60 ml/min/1.73 sqM); Sodium 142 mmol/L (137-145); Total Bilirubin 1.2 mg/dL (0.2-1.3); Total Protein 6.8 g/dL (6.3-8.2)
[2024-03-20 08:01] LABS: AST 28 U/L (14-36); Alkaline Phosphatase 83 U/L (38-126); Potassium 4.4 mmol/L (3.5-5.1)
--- NOTE | 2024-03-20 10:45 | CT ---
EXAMINATION TYPE: CT abdomen pelvis w con DATE OF EXAM: 03/20/2024 COMPARISON: Ultrasound 03/17/2024, CT scan 09/15/2019 HISTORY: RLQ pain CT DLP: 1685 mGycm Automated exposure control for dose reduction was used. CONTRAST: CT scan of the abdomen pelvis is performed with IV Contrast, patient injected with 100 ml mL of Isovu e 300. FINDINGS- LUNG BASES- basilar scarring or atelectasis. LIVER/GB- area of low attenuation near the falciform ligament is stable likely secondary to focal f atty infiltration. Additional simple appearing caudate lobe simple hepatic benign cyst. No gallstones . PANCREAS- No gross abnormality is seen. SPLEEN- No gross abnormality is seen. ADRENALS- No gross abnormality is seen. KIDNEYS/BLADDER- no hydronephrosis nephrolithiasis or renal mass. BOWEL- appendix normal. No evidence of obstruction. No significant diverticular disease. Correlate f or prior gastric surgery. Tiny hiatal hernia. LYMPH NODES- No greater than 1cm abdominal or pelvic lymph nodes are appreciated. OSSEOUS STRUCTURES- mild degenerative changes spine. Arthropathy. OTHER- there is markedly enlarged and lobulated uterus measuring up to 12 cm and likely related to multiple uterine fibroids. Intrauterine device is seen but its exact location is difficult to determi ne given the presence of the calcified and noncalcified suspected fibroids. Would recommend follow-up ultrasound. Aorta of normal caliber. No free fluid. No free air. IMPRESSION- 1. Markedly enlarged and lobulated uterus suggestive of multiple uterine fibroids. Indeterminate posi tion of the intrauterine device due to the presence of the abnormal morphology of the uterus. Recomme nd follow-up ultrasound.
== END | disposition home or self-care (01) ==
LOC: RADCTMAIN 06:54
PROVIDERS: ATTEND Surgery
DX: R10.31 Right lower quadrant pain (principal)
CPT/HCPCS: 80053; 82607; 82565; 82746; 84520; 85027; 74177; 36415; Q9967

== ENCOUNTER → 2025-02-06 | Outpatient (CLI) | payer BC ==
--- NOTE | 2025-02-06 09:45 | XR ---
EXAMINATION TYPE: XR hand complete LT DATE OF EXAM: 02/06/2025 9:22 AM COMPARISON: None CLINICAL INDICATION: Female, 54 years old with history of M79.642 PAIN IN LEFT HAND; PHH, pain TECHNIQUE: XR hand complete LT 3 views were obtained. FINDINGS: Normal alignment of the visualized joints. No acute osseous pathology is identified. No e vidence of soft tissue swelling. No significant degeneration. IMPRESSION: No acute osseous pathology. [facility], , 02/06/2025 9:43 AM
== END | disposition home or self-care (01) ==
LOC: RADXRMAIN 09:09
PROVIDERS: ATTEND Internal Medicine
DX: M79.642 Pain in left hand (principal)